=== PATIENT | male | born 1950 | race Caucasian/White ===

== ENCOUNTER 2020-08-17 12:13 | Inpatient (IN) | payer BC ==
[2020-08-17 16:24] LABS: BASO % 0.6 % (0-2.0); EOS % 0.7 % (0-4.5); HEMATOCRIT 31.1 % (35.4-49); HEMOGLOBIN 8.8 GM/dL (11.7-16.9); LYMPH % 13.6 % (8-40); MCHC 28.2 g/dl (32.0-35.9); MEAN CELL VOLUME 62.1 fl (80-96); MEAN PLT VOLUME 9.4 fl (7.5-11.1); MONO % 9.9 % (3.8-10.2); NEUT % 75.2 % (42.8-82.8); PLATELET COUNT 314 K/MM3 (134-434); RBC 5.01 M/mm3 (4.00-5.60); RDW 17.9 % (11.9-15.9); WHITE BLOOD COUNT 13.3 K/mm3 (4.0-10.0)
[2020-08-17 16:31] LABS: INR 1.45 (0.83-1.09); PROTHROMBIN TIME (PATIENT) 17.3 SEC (9.7-13.0)
[2020-08-17 16:34] LABS: ACTIVATED PTT 28.9 SECONDS (25.2-36.5)
[2020-08-17 16:48] LABS: MCH 17.5 pg (25.7-33.7)
[2020-08-17 16:52] LABS: CALCIUM 8.5 mg/dL (8.5-10.1)
[2020-08-17 16:53] LABS: ALBUMIN 3.6 g/dl (3.4-5.0)
[2020-08-17 16:56] LABS: CREATININE 1.1 mg/dL (0.55-1.3)
[2020-08-17 16:57] LABS: BILIRUBIN,TOTAL 1.1 mg/dL (0.2-1); TOT PROT 6.6 g/dl (6.4-8.2)
[2020-08-17 17:01] LABS: N-TERMINAL BNP 2191.1 pg/ml (5-125)
[2020-08-17] MEDS ORDERED: ALPRAZolam 1 MG TABLET PO PRN (18:04)
[2020-08-17] MEDS ORDERED: ALPRAZolam 0.25 MG TABLET ONE (18:05)
[2020-08-17 20:10] LABS: ANISOCYTOSIS 1+; MACROCYTOSIS 1+; OVALOCYTE 1+; PLATELET ESTIMATE NORMAL
[2020-08-17] MEDS ORDERED: ASPIRIN COATED 81 MG TABLET.EC ONE (20:37)
[2020-08-17] MEDS ORDERED: SPIRONOLACTONE 25 MG TABLET ONE (20:37)
[2020-08-17] MEDS: SPIRONOLACTONE 25 MG TABLET PO SCH (20:50)
[2020-08-17] MEDS: ASPIRIN COATED 81 MG TABLET.EC PO SCH (20:50)
[2020-08-17] MEDS ORDERED: FUROSEMIDE 40 MG/4 ML INJECTABLE VIAL ONE (22:37)
[2020-08-17] MEDS ORDERED: CARVEDILOL 3.125 MG TABLET (FP) ONE (22:37)
[2020-08-17] MEDS: FUROSEMIDE 40 MG/4 ML INJECTABLE VIAL IVPUSH SCH (22:52)
[2020-08-17] MEDS: CARVEDILOL 6.25 MG TABLET (FP) PO SCH (22:52)
[2020-08-17 22:56] LABS: EPI CELLS 7 /uL (0-25.1); HYALINE CASTS 3 /uL (0-3.1); URINE APPEARANCE CLOUDY; URINE BACTERIA 53 /uL (0-1359); URINE BILIRUBIN NEGATIVE (NEGATIVE); URINE COLOR YELLOW; URINE GLUCOSE (UA) NEGATIVE (NEGATIVE); URINE KETONE 1+ (NEGATIVE); URINE LEUK ESTERASE NEGATIVE (NEGATIVE); URINE NITRITE NEGATIVE (NEGATIVE); URINE PROTEIN 1+ (NEGATIVE); URINE RBC 10 /uL (0-23.9); URINE WBC 8 /uL (0-25.8)
[2020-08-18 08:18] LABS: PHOSPHOROUS 4.3 mg/dL (2.5-4.9)
[2020-08-18] MEDS ORDERED: ASPIRIN COATED 81 MG TABLET.EC ONE (09:24)
[2020-08-18] MEDS ORDERED: FUROSEMIDE 40 MG/4 ML INJECTABLE VIAL ONE (09:25)
[2020-08-18] MEDS ORDERED: DOCUSATE SODIUM 100 MG CAPSULE (FP) PO ONE (09:25)
[2020-08-18] MEDS ORDERED: SPIRONOLACTONE 25 MG TABLET ONE (09:25)
[2020-08-18] MEDS ORDERED: FERROUS SO4 325 MG TABLET (FP) ONE (09:25)
[2020-08-18] MEDS: FUROSEMIDE 40 MG/4 ML INJECTABLE VIAL IVPUSH SCH ×2 (09:32→22:37)
[2020-08-18] MEDS: CARVEDILOL 6.25 MG TABLET (FP) PO SCH ×2 (09:32→22:37)
[2020-08-18] MEDS: FERROUS SO4 325 MG TABLET (FP) PO SCH (09:32)
[2020-08-18] MEDS: DOCUSATE SODIUM 100 MG CAPSULE (FP) PO SCH (09:32)
[2020-08-18] MEDS: ASPIRIN COATED 81 MG TABLET.EC PO SCH (09:32)
[2020-08-18] MEDS: SPIRONOLACTONE 25 MG TABLET PO SCH (09:32)
[2020-08-18] MEDS: SACUBITRIL/VALSARTAN 49 MG-51 MG TABLET PO SCH ×2 (09:32→22:44)
[2020-08-18] MEDS ORDERED: ENOXAPARIN NA (PORCINE) 40 MG/0.4 ML DISP.SYRIN SQ SCH (10:00)
[2020-08-18 13:05] LABS: POTASSIUM 3.8 mmol/L (3.5-5.1)
[2020-08-18 13:08] LABS: ALBUMIN 3.2 g/dl (3.4-5.0); BLOOD UREA NITROGEN 33.4 mg/dL (7-18); CALCIUM 8.3 mg/dL (8.5-10.1)
[2020-08-18 13:10] LABS: CREATININE 1.2 mg/dL (0.55-1.3)
[2020-08-18 13:13] LABS: BASO % 0.9 % (0-2.0); BILIRUBIN,TOTAL 0.7 mg/dL (0.2-1); EOS % 1.3 % (0-4.5); HEMATOCRIT 27.1 % (35.4-49); HEMOGLOBIN 7.8 GM/dL (11.7-16.9); MEAN CELL VOLUME 61.9 fl (80-96); MEAN PLT VOLUME 9.5 fl (7.5-11.1); MONO % 11.8 % (3.8-10.2); PLATELET COUNT 228 K/MM3 (134-434); RBC 4.37 M/mm3 (4.00-5.60); RDW 18.3 % (11.9-15.9); TOT PROT 5.8 g/dl (6.4-8.2); WHITE BLOOD COUNT 7.2 K/mm3 (4.0-10.0)
[2020-08-18 13:14] LABS: MCH 17.9 pg (25.7-33.7)
[2020-08-18] MEDS: INSULIN SLIDING SCALE (NOVOLOG) 1 VIAL SQ SCH ×3 (13:25→21:10)
[2020-08-18 14:07] VITALS: BMI 38.7
[2020-08-18 15:42] LABS: BF WBC & OTHER NUCLEATED CELLS 251 /mm3
[2020-08-18] MEDS ORDERED: PNEUMOC 13-VAL CONJ-DIP CRM/PF 0.5 ML DISP.SYRIN IM ONE (17:00)
[2020-08-18] MEDS ORDERED: FLU VACCINE (FLULAVAL) PF 60 MCG/0.5 ML SYRINGE 2020-2021 IM ONE (17:00)
[2020-08-18 18:02] LABS: BODY FLUID MACROPHAGES 43 %
[2020-08-18] MEDS: BENZOCAINE/MENTH/CETYLPYRD CL 1 EACH LOZENGE MM PRN (22:37)
[2020-08-19] MEDS: INSULIN SLIDING SCALE (NOVOLOG) 1 VIAL SQ SCH ×4 (06:27→22:27)
[2020-08-19 07:57] LABS: BASO % 0.4 % (0-2.0); EOS % 0.8 % (0-4.5); HEMATOCRIT 27.5 % (35.4-49); MCHC 29.1 g/dl (32.0-35.9); MEAN CELL VOLUME 60.2 fl (80-96); MONO % 5.3 % (3.8-10.2); NEUT % 88.5 % (42.8-82.8); PLATELET COUNT 230 K/MM3 (134-434); RBC 4.57 M/mm3 (4.00-5.60); RDW 17.8 % (11.9-15.9); WHITE BLOOD COUNT 10.2 K/mm3 (4.0-10.0)
[2020-08-19 08:11] LABS: POTASSIUM 3.7 mmol/L (3.5-5.1)
[2020-08-19 08:12] LABS: ALBUMIN 2.5 g/dl (3.4-5.0)
[2020-08-19 08:14] LABS: CALCIUM 7.8 mg/dL (8.5-10.1)
[2020-08-19 08:15] LABS: BLOOD UREA NITROGEN 37.2 mg/dL (7-18); MAGNESIUM 1.9 mg/dL (1.8-2.4)
[2020-08-19 08:18] LABS: CREATININE 1.3 mg/dL (0.55-1.3)
[2020-08-19 08:19] LABS: BILIRUBIN,TOTAL 1.5 mg/dL (0.2-1)
[2020-08-19 08:20] LABS: TOT PROT 4.7 g/dl (6.4-8.2)
[2020-08-19 08:21] LABS: MCH 17.5 pg (25.7-33.7)
[2020-08-19] MEDS: SPIRONOLACTONE 25 MG TABLET PO SCH (09:29)
[2020-08-19] MEDS: SACUBITRIL/VALSARTAN 49 MG-51 MG TABLET PO SCH ×2 (09:29→22:05)
[2020-08-19] MEDS: DOCUSATE SODIUM 100 MG CAPSULE (FP) PO SCH (09:30)
[2020-08-19] MEDS: CARVEDILOL 6.25 MG TABLET (FP) PO SCH ×2 (09:30→22:05)
[2020-08-19] MEDS: FUROSEMIDE 40 MG/4 ML INJECTABLE VIAL IVPUSH SCH ×2 (09:31→22:30)
[2020-08-19] MEDS: BENZOCAINE/MENTH/CETYLPYRD CL 1 EACH LOZENGE MM PRN (09:31)
[2020-08-19] MEDS: FERROUS SO4 325 MG TABLET (FP) PO SCH (10:15)
[2020-08-19 11:58] LABS: HIV INTERPRETATION NEGATIVE (NEGATIVE)
[2020-08-19] MEDS ORDERED: INSULIN SLIDING SCALE (NOVOLOG) 1 VIAL SQ ONE (22:26)
[2020-08-20] MEDS: INSULIN SLIDING SCALE (NOVOLOG) 1 VIAL SQ SCH ×4 (07:19→21:31)
[2020-08-20 08:29] LABS: INR 1.38 (0.83-1.09); PROTHROMBIN TIME (PATIENT) 16.8 SEC (9.7-13.0)
[2020-08-20 08:35] LABS: POTASSIUM 3.8 mmol/L (3.5-5.1)
[2020-08-20 08:36] LABS: CALCIUM 7.8 mg/dL (8.5-10.1)
[2020-08-20 08:37] LABS: ALBUMIN 2.6 g/dl (3.4-5.0); BLOOD UREA NITROGEN 31.3 mg/dL (7-18)
[2020-08-20 08:40] LABS: CREATININE 1.2 mg/dL (0.55-1.3)
[2020-08-20 08:42] LABS: BILIRUBIN,TOTAL 0.5 mg/dL (0.2-1)
[2020-08-20 09:32] LABS: BASO % 0.5 % (0-2.0); EOS % 1.3 % (0-4.5); HEMATOCRIT 28.4 % (35.4-49); HEMOGLOBIN 8.2 GM/dL (11.7-16.9); LYMPH % 13.9 % (8-40); MCH 17.8 pg (25.7-33.7); MCHC 29.1 g/dl (32.0-35.9); MEAN CELL VOLUME 61.1 fl (80-96); MEAN PLT VOLUME 9.2 fl (7.5-11.1); MONO % 10.3 % (3.8-10.2); PLATELET COUNT 237 K/MM3 (134-434); RBC 4.64 M/mm3 (4.00-5.60); RDW 17.9 % (11.9-15.9); WHITE BLOOD COUNT 9.5 K/mm3 (4.0-10.0)
[2020-08-20] MEDS: FERROUS SO4 325 MG TABLET (FP) PO SCH (10:20)
[2020-08-20] MEDS: CARVEDILOL 6.25 MG TABLET (FP) PO SCH ×2 (10:20→21:30)
[2020-08-20] MEDS: SACUBITRIL/VALSARTAN 49 MG-51 MG TABLET PO SCH ×2 (10:20→21:31)
[2020-08-20] MEDS: FUROSEMIDE 40 MG/4 ML INJECTABLE VIAL IVPUSH SCH ×2 (10:20→21:31)
[2020-08-20] MEDS: DOCUSATE SODIUM 100 MG CAPSULE (FP) PO SCH (10:20)
[2020-08-20] MEDS: SPIRONOLACTONE 25 MG TABLET PO SCH (10:21)
[2020-08-20] MEDS: ASPIRIN COATED 81 MG TABLET.EC PO SCH (10:27)
[2020-08-20 13:07] LABS: BODY FLUID ALBUMIN 1.2 g/dL (Not Estab.)
[2020-08-21] MEDS: INSULIN SLIDING SCALE (NOVOLOG) 1 VIAL SQ SCH ×4 (06:16→21:38)
[2020-08-21 09:32] LABS: BASO % 0.6 % (0-2.0); EOS % 0.8 % (0-4.5); HEMATOCRIT 27.4 % (35.4-49); HEMOGLOBIN 8.1 GM/dL (11.7-16.9); LYMPH % 13.2 % (8-40); MCHC 29.7 g/dl (32.0-35.9); MEAN CELL VOLUME 60.1 fl (80-96); MEAN PLT VOLUME 9.7 fl (7.5-11.1); MONO % 11.8 % (3.8-10.2); NEUT % 73.6 % (42.8-82.8); PLATELET COUNT 222 K/MM3 (134-434); RBC 4.55 M/mm3 (4.00-5.60); RDW 18.4 % (11.9-15.9); WHITE BLOOD COUNT 9.4 K/mm3 (4.0-10.0)
[2020-08-21 09:38] LABS: MCH 17.8 pg (25.7-33.7)
[2020-08-21 09:48] LABS: POTASSIUM 3.7 mmol/L (3.5-5.1)
[2020-08-21 10:06] LABS: BLOOD UREA NITROGEN 23.3 mg/dL (7-18); CALCIUM 7.6 mg/dL (8.5-10.1)
[2020-08-21 10:07] LABS: ALBUMIN 2.6 g/dl (3.4-5.0)
[2020-08-21 10:11] LABS: TOT PROT 5.2 g/dl (6.4-8.2)
[2020-08-21 10:15] LABS: BILIRUBIN,TOTAL 0.7 mg/dL (0.2-1)
[2020-08-21] MEDS: SACUBITRIL/VALSARTAN 49 MG-51 MG TABLET PO SCH ×2 (10:49→21:38)
[2020-08-21] MEDS: FUROSEMIDE 40 MG/4 ML INJECTABLE VIAL IVPUSH SCH ×2 (10:49→21:38)
[2020-08-21] MEDS: FERROUS SO4 325 MG TABLET (FP) PO SCH (10:50)
[2020-08-21] MEDS: ASPIRIN COATED 81 MG TABLET.EC PO SCH (10:50)
[2020-08-21] MEDS: DOCUSATE SODIUM 100 MG CAPSULE (FP) PO SCH (10:50)
[2020-08-21] MEDS: CARVEDILOL 6.25 MG TABLET (FP) PO SCH ×2 (10:50→21:38)
[2020-08-21] MEDS: SPIRONOLACTONE 25 MG TABLET PO SCH (10:50)
[2020-08-21 11:15] LABS: ANISOCYTOSIS 2+; OVALOCYTE 2+
[2020-08-21] MEDS ORDERED: POTASSIUM CHLORIDE TABS 20 MEQ TABLET.ER (FP) PO ONE (13:59)
[2020-08-22] MEDS: INSULIN SLIDING SCALE (NOVOLOG) 1 VIAL SQ SCH ×2 (06:45→12:39)
[2020-08-22 08:33] LABS: BASO % 0.3 % (0-2.0); EOS % 0.2 % (0-4.5); HEMATOCRIT 26.6 % (35.4-49); HEMOGLOBIN 7.8 GM/dL (11.7-16.9); MCHC 29.3 g/dl (32.0-35.9); MEAN PLT VOLUME 9.4 fl (7.5-11.1); MONO % 10.6 % (3.8-10.2); NEUT % 80.9 % (42.8-82.8); PLATELET COUNT 190 K/MM3 (134-434); RBC 4.36 M/mm3 (4.00-5.60); RDW 18.6 % (11.9-15.9); WHITE BLOOD COUNT 9.4 K/mm3 (4.0-10.0)
[2020-08-22 08:34] LABS: MCH 17.9 pg (25.7-33.7)
[2020-08-22 08:53] LABS: POTASSIUM 4.1 mmol/L (3.5-5.1)
[2020-08-22 08:59] LABS: BLOOD UREA NITROGEN 25.7 mg/dL (7-18)
[2020-08-22 09:01] LABS: CALCIUM 7.8 mg/dL (8.5-10.1); MAGNESIUM 1.9 mg/dL (1.8-2.4)
[2020-08-22] MEDS ORDERED: MAGNESIUM HYDROX 2400MG/30ML ORAL SUSPENSION 30 ML CUP PO ONE (09:32)
[2020-08-22] MEDS: FUROSEMIDE 40 MG/4 ML INJECTABLE VIAL IVPUSH SCH (10:34)
[2020-08-22] MEDS: ASPIRIN COATED 81 MG TABLET.EC PO SCH (10:34)
[2020-08-22] MEDS: SACUBITRIL/VALSARTAN 49 MG-51 MG TABLET PO SCH (10:34)
[2020-08-22] MEDS: SPIRONOLACTONE 25 MG TABLET PO SCH (10:34)
[2020-08-22 11:44] VITALS: BP 93/52; PULSE 74; TEMP 98.6
[2020-08-22 17:07] LABS: HEP B CORE AB, TOT Negative (Negative)
[2020-08-22] MEDS ORDERED: DOCUSATE SODIUM 100 MG CAPSULE (FP) PO SCH (22:00)
== END 2020-08-22 13:29 | disposition short-term general hospital (02) | DRG 292 ==
LOC: JER 12:13 → JERBED 19:19 → J6WEST-2 08-18 11:12
PROVIDERS: ADMIT Hospitalist; ATTEND Family Medicine
PROC: 0W993ZX Drainage of Right Pleural Cavity, Percutaneous Approach, Diagnostic (ICD-10-PCS; principal; 2020-08-18)
DX: I11.0 Hypertensive heart disease with heart failure (principal); I24.8 Other forms of acute ischemic heart disease; I31.3 Pericardial effusion (noninflammatory); R18.8 Other ascites; I27.20 Pulmonary hypertension, unspecified; I50.23 Acute on chronic systolic (congestive) heart failure; R59.0 Localized enlarged lymph nodes; R60.0 Localized edema; I08.1 Rheumatic disorders of both mitral and tricuspid valves; E87.70 Fluid overload, unspecified; K63.9 Disease of intestine, unspecified; E11.9 Type 2 diabetes mellitus without complications; D50.0 Iron deficiency anemia secondary to blood loss (chronic); K76.9 Liver disease, unspecified; N50.89 Other specified disorders of the male genital organs; E66.9 Obesity, unspecified; Z68.37 Body mass index [BMI] 37.0-37.9, adult
CPT/HCPCS: 32555; 36415; 71045-TC-FY; 71046-TC-FY; 71260-TC; 74177-TC; 80048; 80053; 80061; 81003; 82042; 82105; 82150; 82248; 82378; 82465; 82550; 82728; 82945; 82962; 83036; 83540; 83550; 83615; 83721; 83735; 83880; 83986; 84100; 84157; 84443; 84478; 84484; 85025; 85045; 85610; 85730; 86301; 86304; 86704; 86706; 86707; 86708; 86709; 86803; 86850; 86900; 86901; 87070; 87075; 87102; 87116; 87205; 87206; 87210; 87340; 87389; 87522; 88108; 88305-TC; 90670; 93005; 93010; 93306-TC; 99285-25; C9803; G0008; G0009; Q2036; Q9967; U0003

== ENCOUNTER 2020-10-02 04:57 | Day surgery (SDC) | payer BC ==
[2020-10-01 17:32] VITALS: BMI 28.0
[2020-10-02 13:03] LABS: BF WBC & OTHER NUCLEATED CELLS 313148 /mm3
[2020-10-02 13:24] VITALS: BP 119/66; PULSE 104; TEMP 98.2
[2020-10-02 15:20] LABS: BODYL FLD EOSINOPHIL 15 %
[2020-10-02 15:21] LABS: BODY FLUID MACROPHAGES 10 %
[2020-10-03 14:14] LABS: BODY FLUID ALBUMIN 2.9 g/dL (Not Estab.)
== END 2020-10-02 13:00 | disposition home or self-care (01) ==
LOC: JRADIR 04:57
PROVIDERS: ATTEND Internal Medicine Hematology & Oncology
PROC: 0W993ZZ Drainage of Right Pleural Cavity, Percutaneous Approach (ICD-10-PCS; principal; 2020-10-02)
PROC: BB4BZZZ Ultrasonography of Pleura (ICD-10-PCS; 2020-10-02)
DX: J90 Pleural effusion, not elsewhere classified (principal)
CPT/HCPCS: 32555; 36415; 71046-TC-FY; 76700-TC; 76942; 82042; 82150; 82465; 82945; 82962; 83615; 83986; 84157; 84478; 87070; 87075; 87076; 87102; 87116; 87186; 87205; 87206; 87210; 88108; 88305-TC

== ENCOUNTER 2020-10-03 07:54 | Inpatient (IN) | payer BC ==
[2020-10-03 09:11] LABS: BASO % 0.6 % (0-2.0); EOS % 1.1 % (0-4.5); HEMATOCRIT 33.8 % (35.4-49); HEMOGLOBIN 10.5 GM/dL (11.7-16.9); LYMPH % 17.6 % (8-40); MCH 21.3 pg (25.7-33.7); MCHC 31.1 g/dl (32.0-35.9); MEAN CELL VOLUME 68.4 fl (80-96); MEAN PLT VOLUME 8.7 fl (7.5-11.1); MONO % 7.3 % (3.8-10.2); NEUT % 73.4 % (42.8-82.8); PLATELET COUNT 428 K/MM3 (134-434); RBC 4.94 M/mm3 (4.00-5.60); RDW 24.5 % (11.9-15.9); WHITE BLOOD COUNT 9.3 K/mm3 (4.0-10.0)
[2020-10-03 09:26] LABS: CHLORIDE 98 mmol/L (98-107); POTASSIUM 3.5 mmol/L (3.5-5.1); SODIUM 140 mmol/L (136-145)
[2020-10-03 09:28] LABS: ALBUMIN 2.7 g/dl (3.4-5.0); ANION GAP 11 MMOL/L (8-16); BLOOD UREA NITROGEN 30.2 mg/dL (7-18); CALCIUM 9.1 mg/dL (8.5-10.1); CO2 32 mmol/L (21-32); GLUCOSE,RANDOM 137 mg/dL (74-106)
[2020-10-03 09:29] LABS: LIPASE 274 U/L (73-393)
[2020-10-03 09:31] LABS: CREATININE 0.9 mg/dL (0.55-1.3); SGOT/AST 24 U/L (15-37); SGPT/ALT 40 U/L (13-61)
[2020-10-03 09:33] LABS: BILIRUBIN,TOTAL 0.5 mg/dL (0.2-1); TOT PROT 7.3 g/dl (6.4-8.2)
[2020-10-03 09:34] LABS: ALK PHOS 166 U/L (45-117); LDH 227 U/L (87-246)
[2020-10-03] MEDS ORDERED: CEFTRIAXONE 1,000 MG in DEXTROSE 5%-WATER - 50 ML IVPB ONE (10:00)
[2020-10-03] MEDS ORDERED: ACETAMINOPHEN 325 MG TABLET (FP) PO PRN (10:21)
[2020-10-03] MEDS ORDERED: CEFTRIAXONE 1 GM/50 ML BAG ONE (10:25)
[2020-10-03] MEDS ORDERED: PANTOPRAZOLE 40 MG TABLET ONE (11:22)
[2020-10-03] MEDS: PANTOPRAZOLE 20 MG TABLET PO SCH (11:31)
[2020-10-03 14:59] LABS: N-TERMINAL BNP 2537.1 pg/ml (5-125)
[2020-10-03] MEDS: HEPARIN NA (PORCINE) 5,000 UNITS/ML 1ML VIAL SQ SCH (22:10)
[2020-10-03] MEDS ORDERED: HEPARIN NA (PORCINE) 5,000 UNITS/ML 1ML VIAL ONE (22:32)
[2020-10-04 02:41] VITALS: BMI 29.1
[2020-10-04] MEDS: HEPARIN NA (PORCINE) 5,000 UNITS/ML 1ML VIAL SQ SCH ×2 (09:51→21:23)
[2020-10-04] MEDS: PANTOPRAZOLE 20 MG TABLET PO SCH (09:53)
[2020-10-04 10:07] LABS: BASO % 1.2 % (0-2.0); EOS % 1.8 % (0-4.5); HEMATOCRIT 29.5 % (35.4-49); HEMOGLOBIN 9.5 GM/dL (11.7-16.9); LYMPH % 17.9 % (8-40); MCH 21.7 pg (25.7-33.7); MCHC 32.1 g/dl (32.0-35.9); MEAN CELL VOLUME 67.4 fl (80-96); MEAN PLT VOLUME 8.4 fl (7.5-11.1); MONO % 6.5 % (3.8-10.2); NEUT % 72.6 % (42.8-82.8); PLATELET COUNT 377 K/MM3 (134-434); RBC 4.38 M/mm3 (4.00-5.60); RDW 24.6 % (11.9-15.9); WHITE BLOOD COUNT 7.7 K/mm3 (4.0-10.0)
[2020-10-04 10:16] LABS: INR 1.26 (0.83-1.09); PROTHROMBIN TIME (PATIENT) 15.4 SEC (9.7-13.0)
[2020-10-04 10:32] LABS: POTASSIUM 3.2 mmol/L (3.5-5.1)
[2020-10-04 10:34] LABS: ALBUMIN 2.5 g/dl (3.4-5.0); BLOOD UREA NITROGEN 23.4 mg/dL (7-18); CALCIUM 8.6 mg/dL (8.5-10.1)
[2020-10-04 10:37] LABS: CREATININE 0.8 mg/dL (0.55-1.3)
[2020-10-04 10:39] LABS: BILIRUBIN,TOTAL 0.5 mg/dL (0.2-1); TOT PROT 6.6 g/dl (6.4-8.2)
[2020-10-04 10:43] LABS: ANISOCYTOSIS 3+; MACROCYTOSIS 0; PLATELET ESTIMATE NORMAL
[2020-10-04] MEDS ORDERED: LORazepam 2 MG/ML SDV VIAL IVPB ONE (10:49)
[2020-10-04] MEDS: CEFTRIAXONE 1 GM in DEXTROSE 5%-WATER - 50 ML IVPB SCH (13:40)
[2020-10-05] MEDS: HEPARIN NA (PORCINE) 5,000 UNITS/ML 1ML VIAL SQ SCH ×2 (09:16→21:06)
[2020-10-05] MEDS: PANTOPRAZOLE 20 MG TABLET PO SCH (09:21)
[2020-10-05] MEDS: CEFTRIAXONE 1 GM in DEXTROSE 5%-WATER - 50 ML IVPB SCH (10:02)
[2020-10-05] MEDS: IRON POLYSACCHARIDES 150 MG CAPSULE PO SCH (14:25)
[2020-10-05] MEDS: GLIMEPIRIDE 1 MG TABLET PO SCH (14:25)
[2020-10-05 16:15] LABS: BASO % 0.8 % (0-2.0); EOS % 1.1 % (0-4.5); HEMATOCRIT 29.8 % (35.4-49); HEMOGLOBIN 9.4 GM/dL (11.7-16.9); LYMPH % 15.5 % (8-40); MCH 21.7 pg (25.7-33.7); MCHC 31.5 g/dl (32.0-35.9); MEAN CELL VOLUME 68.9 fl (80-96); MEAN PLT VOLUME 8.2 fl (7.5-11.1); MONO % 6.3 % (3.8-10.2); NEUT % 76.3 % (42.8-82.8); PLATELET COUNT 367 K/MM3 (134-434); RBC 4.33 M/mm3 (4.00-5.60); RDW 24.1 % (11.9-15.9); WHITE BLOOD COUNT 8.1 K/mm3 (4.0-10.0)
[2020-10-05] MEDS: INSULIN SLIDING SCALE (NOVOLOG) 1 VIAL SQ SCH ×2 (16:24→21:08)
[2020-10-05] MEDS: FUROSEMIDE 40 MG TABLET (FP) PO SCH (16:42)
[2020-10-05 17:00] LABS: ALBUMIN 2.5 g/dl (3.4-5.0); BLOOD UREA NITROGEN 18.8 mg/dL (7-18); CALCIUM 8.6 mg/dL (8.5-10.1)
[2020-10-05 17:04] LABS: CREATININE 0.7 mg/dL (0.55-1.3); IRON SERUM 34 ug/dL (50-175); TOTAL IRON BINDING CAPACITY 242 ug/dL (250-450)
[2020-10-05 17:05] LABS: BILIRUBIN,TOTAL 0.3 mg/dL (0.2-1); TOT PROT 6.5 g/dl (6.4-8.2)
[2020-10-05 18:00] LABS: POTASSIUM 3.8 mmol/L (3.5-5.1)
[2020-10-05] MEDS: ATORVASTATIN CA 10 MG TABLET (FP) PO SCH (21:06)
[2020-10-05] MEDS: LINEZOLID 600 MG PREMIX BAG 600 MG in PREMIX 300 IVPB SCH (22:30)
[2020-10-06] MEDS: INSULIN SLIDING SCALE (NOVOLOG) 1 VIAL SQ SCH ×4 (06:08→21:14)
[2020-10-06] MEDS: GLIMEPIRIDE 1 MG TABLET PO SCH (06:32)
[2020-10-06 09:07] LABS: BASO % 0.6 % (0-2.0); EOS % 1.1 % (0-4.5); HEMATOCRIT 31.4 % (35.4-49); LYMPH % 16.6 % (8-40); MCH 21.8 pg (25.7-33.7); MCHC 31.8 g/dl (32.0-35.9); MEAN CELL VOLUME 68.5 fl (80-96); MEAN PLT VOLUME 7.5 fl (7.5-11.1); NEUT % 74.7 % (42.8-82.8); PLATELET COUNT 342 K/MM3 (134-434); RBC 4.59 M/mm3 (4.00-5.60); RDW 23.9 % (11.9-15.9); WHITE BLOOD COUNT 8.2 K/mm3 (4.0-10.0)
[2020-10-06] MEDS: LINEZOLID 600 MG PREMIX BAG 600 MG in PREMIX 300 IVPB SCH ×2 (09:20→21:13)
[2020-10-06] MEDS: IRON POLYSACCHARIDES 150 MG CAPSULE PO SCH (09:33)
[2020-10-06] MEDS: PANTOPRAZOLE 20 MG TABLET PO SCH (09:33)
[2020-10-06] MEDS: FUROSEMIDE 40 MG TABLET (FP) PO SCH (09:33)
[2020-10-06 09:48] LABS: POTASSIUM 3.8 mmol/L (3.5-5.1)
[2020-10-06 10:14] LABS: ALBUMIN 2.5 g/dl (3.4-5.0); BLOOD UREA NITROGEN 14.2 mg/dL (7-18)
[2020-10-06 10:15] LABS: BILIRUBIN,TOTAL 0.4 mg/dL (0.2-1); CALCIUM 8.7 mg/dL (8.5-10.1); TOT PROT 6.3 g/dl (6.4-8.2)
[2020-10-06 10:17] LABS: CREATININE 0.7 mg/dL (0.55-1.3)
[2020-10-06] MEDS: CEFTRIAXONE 1 GM in DEXTROSE 5%-WATER - 50 ML IVPB SCH (10:26)
[2020-10-06] MEDS: HEPARIN NA (PORCINE) 5,000 UNITS/ML 1ML VIAL SQ SCH ×2 (10:29→21:12)
[2020-10-06] MEDS ORDERED: BENZOCAINE/MENTH/CETYLPYRD CL 1 EACH LOZENGE MM PRN (20:59)
[2020-10-06] MEDS: ATORVASTATIN CA 10 MG TABLET (FP) PO SCH (21:12)
[2020-10-07] MEDS: INSULIN SLIDING SCALE (NOVOLOG) 1 VIAL SQ SCH ×4 (06:20→21:00)
[2020-10-07] MEDS: GLIMEPIRIDE 1 MG TABLET PO SCH (06:20)
[2020-10-07] MEDS: LINEZOLID 600 MG PREMIX BAG 600 MG in PREMIX 300 IVPB SCH ×2 (09:11→20:59)
[2020-10-07] MEDS: TORSEMIDE 20 MG TABLET (FP) PO SCH (09:21)
[2020-10-07] MEDS: IRON POLYSACCHARIDES 150 MG CAPSULE PO SCH (09:21)
[2020-10-07] MEDS: PANTOPRAZOLE 20 MG TABLET PO SCH (09:21)
[2020-10-07] MEDS: HEPARIN NA (PORCINE) 5,000 UNITS/ML 1ML VIAL SQ SCH ×2 (09:22→20:59)
[2020-10-07] MEDS: metoPROLOL SUCCINATE 25 MG TAB.SR.24H (FP) PO SCH (09:22)
[2020-10-07] MEDS ORDERED: TORSEMIDE 20 MG TABLET (FP) PO SCH (10:00)
[2020-10-07] MEDS: CEFTRIAXONE 1 GM in DEXTROSE 5%-WATER - 50 ML IVPB SCH (10:35)
[2020-10-07] MEDS: ATORVASTATIN CA 10 MG TABLET (FP) PO SCH (20:59)
[2020-10-07] MEDS ORDERED: MAG HYDROX/AL HYDROX/SIMETH -MYLANTA- ORAL SUSPENSION PO ONE (21:27)
[2020-10-08] MEDS: INSULIN SLIDING SCALE (NOVOLOG) 1 VIAL SQ SCH ×2 (06:00→12:20)
[2020-10-08] MEDS: GLIMEPIRIDE 1 MG TABLET PO SCH (06:07)
[2020-10-08] MEDS: LINEZOLID 600 MG PREMIX BAG 600 MG in PREMIX 300 IVPB SCH (09:05)
[2020-10-08] MEDS: HEPARIN NA (PORCINE) 5,000 UNITS/ML 1ML VIAL SQ SCH (09:05)
[2020-10-08] MEDS: TORSEMIDE 20 MG TABLET (FP) PO SCH (09:07)
[2020-10-08] MEDS: IRON POLYSACCHARIDES 150 MG CAPSULE PO SCH (09:07)
[2020-10-08] MEDS: PANTOPRAZOLE 20 MG TABLET PO SCH (09:08)
[2020-10-08] MEDS: CEFTRIAXONE 1 GM in DEXTROSE 5%-WATER - 50 ML IVPB SCH (09:08)
[2020-10-08] MEDS: metoPROLOL SUCCINATE 25 MG TAB.SR.24H (FP) PO SCH (09:08)
[2020-10-08 12:23] VITALS: BP 107/58; PULSE 91; TEMP 97.9
== END 2020-10-08 14:53 | disposition home or self-care (01) | DRG 177 ==
LOC: JER 07:54 → JERBED 10:09 → J5WEST-2 10-04 02:06
PROVIDERS: ADMIT Family Medicine; ATTEND Family Medicine
DX: J86.9 Pyothorax without fistula (principal); I11.0 Hypertensive heart disease with heart failure; E11.9 Type 2 diabetes mellitus without complications; I50.23 Acute on chronic systolic (congestive) heart failure; J90 Pleural effusion, not elsewhere classified; C18.9 Malignant neoplasm of colon, unspecified; R89.9 Unspecified abnormal finding in specimens from other organs, systems and tissues; R48.9 Unspecified symbolic dysfunctions
CPT/HCPCS: 36415; 71045-TC-FY; 71250-TC; 80053; 82550; 82607; 82728; 82962; 83540; 83550; 83615; 83690; 83880; 84443; 84484; 85025; 85610; 85730; 87040; 93005; 93010; 93306-TC; 97116-GP; 97162-GP; 99285-25; C9803; J1644; U0003

== ENCOUNTER 2020-10-20 09:23 | Inpatient (IN) | payer BC ==
[2020-10-20 10:51] LABS: EOS % 1.1 % (0-4.5); HEMATOCRIT 33.1 % (35.4-49); HEMOGLOBIN 10.5 GM/dL (11.7-16.9); LYMPH % 18.1 % (8-40); MCH 22.8 pg (25.7-33.7); MCHC 31.8 g/dl (32.0-35.9); MEAN CELL VOLUME 71.8 fl (80-96); MEAN PLT VOLUME 8.6 fl (7.5-11.1); MONO % 8.9 % (3.8-10.2); NEUT % 70.9 % (42.8-82.8); PLATELET COUNT 192 K/MM3 (134-434); RBC 4.62 M/mm3 (4.00-5.60); RDW 24.4 % (11.9-15.9); WHITE BLOOD COUNT 5.5 K/mm3 (4.0-10.0)
[2020-10-20 11:04] LABS: POTASSIUM 3.1 mmol/L (3.5-5.1)
[2020-10-20 11:05] LABS: CALCIUM 8.3 mg/dL (8.5-10.1); INR 1.18 (0.83-1.09); PROTHROMBIN TIME (PATIENT) 14.4 SEC (9.7-13.0)
[2020-10-20 11:06] LABS: ALBUMIN 2.8 g/dl (3.4-5.0); BLOOD UREA NITROGEN 16.1 mg/dL (7-18)
[2020-10-20 11:08] LABS: ACTIVATED PTT 35.5 SECONDS (25.2-36.5)
[2020-10-20 11:09] LABS: CREATININE 0.8 mg/dL (0.55-1.3)
[2020-10-20 11:11] LABS: BILIRUBIN,TOTAL 0.4 mg/dL (0.2-1); TOT PROT 6.6 g/dl (6.4-8.2)
[2020-10-20] MEDS ORDERED: SODIUM CHLORIDE 0.9% 500 ML INFUS.BAG IV ONE (12:04)
[2020-10-20 12:13] LABS: ANISOCYTOSIS 2+; MACROCYTOSIS 0; PLATELET ESTIMATE NORMAL
[2020-10-20] MEDS ORDERED: POTASSIUM CHLORIDE ORAL LIQUID 20 MEQ/15 ML PO ONE (12:28)
[2020-10-20] MEDS ORDERED: POTASSIUM CHLORIDE ORAL LIQUID 20 MEQ/15 ML ONE (14:15)
[2020-10-20 17:26] LABS: BODY FLUID MONOCYTE 5 %
[2020-10-20] MEDS ORDERED: DEXTROSE 5%-WATER - 50 ML IVPB ONE (18:50)
[2020-10-20] MEDS ORDERED: PIPERACILLIN/TAZOBACTAM 3.375 GM VIAL IVPB ONE (18:50)
[2020-10-20] MEDS: PIPERACILLIN/TAZOB 3.375 GM 3.375 GM in DEXTROSE 5%-WATER - 50 ML IVPB SCH (19:00)
[2020-10-20] MEDS: LINEZOLID 600 MG PREMIX BAG 600 MG in PREMIX 300 IVPB SCH (20:18)
[2020-10-20] MEDS: ATORVASTATIN CA 10 MG TABLET (FP) PO SCH (21:15)
[2020-10-20] MEDS ORDERED: POTASSIUM CHLORIDE TABS 20 MEQ TABLET.ER (FP) PO ONE (22:00)
[2020-10-21] MEDS ORDERED: DEXTROSE 5%-WATER - 50 ML IVPB ONE ×3 (00:01→17:55)
[2020-10-21] MEDS: PIPERACILLIN/TAZOB 3.375 GM 3.375 GM in DEXTROSE 5%-WATER - 50 ML IVPB SCH ×3 (01:12→17:55)
[2020-10-21 03:42] LABS: PH,URINE 5.5 (5.0-8.0); URINE APPEARANCE CLEAR; URINE BILIRUBIN NEGATIVE (NEGATIVE); URINE COLOR YELLOW; URINE GLUCOSE (UA) NEGATIVE (NEGATIVE); URINE KETONE NEGATIVE (NEGATIVE); URINE LEUK ESTERASE NEGATIVE (NEGATIVE); URINE NITRITE NEGATIVE (NEGATIVE); URINE PROTEIN NEGATIVE (NEGATIVE); URINE UROBILINOGEN 0.2 mg/dL (0.2-1.0)
[2020-10-21] MEDS: LINEZOLID 600 MG PREMIX BAG 600 MG in PREMIX 300 IVPB SCH ×2 (05:54→17:56)
[2020-10-21] MEDS: GLIMEPIRIDE 1 MG TABLET PO SCH (06:03)
[2020-10-21 07:08] LABS: HEMATOCRIT 31.4 % (35.4-49); HEMOGLOBIN 10.2 GM/dL (11.7-16.9); MCH 23.1 pg (25.7-33.7); MCHC 32.4 g/dl (32.0-35.9); MEAN CELL VOLUME 71.3 fl (80-96); MEAN PLT VOLUME 8.7 fl (7.5-11.1); PLATELET COUNT 165 K/MM3 (134-434); RDW 23.7 % (11.9-15.9); WHITE BLOOD COUNT 5.4 K/mm3 (4.0-10.0)
[2020-10-21 07:39] LABS: POTASSIUM 3.3 mmol/L (3.5-5.1)
[2020-10-21 07:42] LABS: CALCIUM 8.2 mg/dL (8.5-10.1)
[2020-10-21 07:43] LABS: ALBUMIN 2.8 g/dl (3.4-5.0); BLOOD UREA NITROGEN 11.2 mg/dL (7-18); MAGNESIUM 1.9 mg/dL (1.8-2.4)
[2020-10-21 07:46] LABS: CREATININE 0.7 mg/dL (0.55-1.3)
[2020-10-21 07:47] LABS: BILIRUBIN,TOTAL 0.7 mg/dL (0.2-1); TOT PROT 6.1 g/dl (6.4-8.2)
[2020-10-21] MEDS ORDERED: PIPERACILLIN/TAZOBACTAM 3.375 GM VIAL IVPB ONE ×3 (10:51→17:55)
[2020-10-21] MEDS: PANTOPRAZOLE 40 MG TABLET PO SCH (10:58)
[2020-10-21] MEDS: metoPROLOL SUCCINATE 25 MG TAB.SR.24H (FP) PO SCH (10:58)
[2020-10-21] MEDS: TORSEMIDE 20 MG TABLET (FP) PO SCH (10:58)
[2020-10-21] MEDS ORDERED: POTASSIUM CHLORIDE TABS 20 MEQ TABLET.ER (FP) PO ONE (13:16)
[2020-10-21] MEDS: POTASSIUM CHLORIDE TABS 10 MEQ TABLET.ER (FP) PO SCH (15:11)
[2020-10-21] MEDS ORDERED: PT OWN MED DRAWER 7, Y5N ONE (17:54)
[2020-10-21] MEDS: ATORVASTATIN CA 10 MG TABLET (FP) PO SCH (22:04)
[2020-10-22] MEDS ORDERED: PIPERACILLIN/TAZOBACTAM 3.375 GM VIAL IVPB ONE ×3 (02:12→18:25)
[2020-10-22] MEDS ORDERED: DEXTROSE 5%-WATER - 50 ML IVPB ONE ×3 (02:12→18:26)
[2020-10-22] MEDS: PIPERACILLIN/TAZOB 3.375 GM 3.375 GM in DEXTROSE 5%-WATER - 50 ML IVPB SCH ×3 (02:39→18:29)
[2020-10-22] MEDS ORDERED: PT OWN MED DRAWER 7, Y5N ONE ×2 (06:06→18:28)
[2020-10-22] MEDS: LINEZOLID 600 MG PREMIX BAG 600 MG in PREMIX 300 IVPB SCH ×2 (06:10→18:29)
[2020-10-22] MEDS: GLIMEPIRIDE 1 MG TABLET PO SCH (06:10)
[2020-10-22] MEDS: TORSEMIDE 20 MG TABLET (FP) PO SCH (09:31)
[2020-10-22] MEDS: metoPROLOL SUCCINATE 25 MG TAB.SR.24H (FP) PO SCH (09:31)
[2020-10-22] MEDS: POTASSIUM CHLORIDE TABS 10 MEQ TABLET.ER (FP) PO SCH (09:32)
[2020-10-22] MEDS: PANTOPRAZOLE 40 MG TABLET PO SCH (09:32)
[2020-10-22] MEDS ORDERED: MAG HYDROX/AL HYDROX/SIMETH 30 ML UNIT-DOSE CUP PO ONE (11:15)
[2020-10-22 15:11] LABS: BODY FLUID ALBUMIN 2.6 g/dL (Not Estab.)
[2020-10-22] MEDS: ATORVASTATIN CA 10 MG TABLET (FP) PO SCH (21:33)
[2020-10-22] MEDS: SIMETHICONE 80 MG TAB.CHEW (FP) PO PRN (21:33)
[2020-10-23] MEDS ORDERED: PIPERACILLIN/TAZOBACTAM 3.375 GM VIAL IVPB ONE ×4 (01:44→23:53)
[2020-10-23] MEDS ORDERED: DEXTROSE 5%-WATER - 50 ML IVPB ONE ×4 (01:44→23:53)
[2020-10-23] MEDS: PIPERACILLIN/TAZOB 3.375 GM 3.375 GM in DEXTROSE 5%-WATER - 50 ML IVPB SCH ×3 (03:00→17:03)
[2020-10-23] MEDS ORDERED: PT OWN MED DRAWER 7, Y5N ONE (06:25)
[2020-10-23] MEDS: LINEZOLID 600 MG PREMIX BAG 600 MG in PREMIX 300 IVPB SCH (06:30)
[2020-10-23] MEDS: GLIMEPIRIDE 1 MG TABLET PO SCH (06:30)
[2020-10-23 07:58] LABS: POTASSIUM 3.9 mmol/L (3.5-5.1)
[2020-10-23 08:05] LABS: BLOOD UREA NITROGEN 9.4 mg/dL (7-18); CALCIUM 8.5 mg/dL (8.5-10.1); MAGNESIUM 2.2 mg/dL (1.8-2.4)
[2020-10-23 08:08] LABS: CREATININE 0.8 mg/dL (0.55-1.3)
[2020-10-23 08:10] LABS: BILIRUBIN,TOTAL 0.7 mg/dL (0.2-1); TOT PROT 6.5 g/dl (6.4-8.2)
[2020-10-23] MEDS: POTASSIUM CHLORIDE TABS 10 MEQ TABLET.ER (FP) PO SCH (09:10)
[2020-10-23] MEDS: TORSEMIDE 20 MG TABLET (FP) PO SCH (09:10)
[2020-10-23] MEDS: PANTOPRAZOLE 40 MG TABLET PO SCH (09:10)
[2020-10-23] MEDS: metoPROLOL SUCCINATE 25 MG TAB.SR.24H (FP) PO SCH (09:10)
[2020-10-23 12:05] VITALS: BMI 28.8
[2020-10-23] MEDS ORDERED: LORazepam 2 MG/ML SDV VIAL IVPB ONE ×2 (17:18→22:30)
[2020-10-23] MEDS: ATORVASTATIN CA 10 MG TABLET (FP) PO SCH (22:24)
[2020-10-23] MEDS: SIMETHICONE 80 MG TAB.CHEW (FP) PO PRN (22:25)
[2020-10-23] MEDS: DOCUSATE SODIUM 100 MG CAPSULE (FP) PO PRN (22:25)
[2020-10-24] MEDS: PIPERACILLIN/TAZOB 3.375 GM 3.375 GM in DEXTROSE 5%-WATER - 50 ML IVPB SCH ×3 (02:42→17:04)
[2020-10-24] MEDS: DOCUSATE SODIUM 100 MG CAPSULE (FP) PO PRN ×2 (06:30→21:33)
[2020-10-24] MEDS: SIMETHICONE 80 MG TAB.CHEW (FP) PO PRN ×3 (06:30→21:33)
[2020-10-24] MEDS: GLIMEPIRIDE 1 MG TABLET PO SCH (06:30)
[2020-10-24] MEDS ORDERED: PIPERACILLIN/TAZOBACTAM 3.375 GM VIAL IVPB ONE ×3 (09:14→22:47)
[2020-10-24] MEDS ORDERED: DEXTROSE 5%-WATER - 50 ML IVPB ONE ×3 (09:14→22:48)
[2020-10-24] MEDS: metoPROLOL SUCCINATE 25 MG TAB.SR.24H (FP) PO SCH (10:25)
[2020-10-24] MEDS: PANTOPRAZOLE 40 MG TABLET PO SCH (10:25)
[2020-10-24] MEDS: POTASSIUM CHLORIDE TABS 10 MEQ TABLET.ER (FP) PO SCH (10:25)
[2020-10-24] MEDS: TORSEMIDE 20 MG TABLET (FP) PO SCH (10:25)
[2020-10-24] MEDS: ATORVASTATIN CA 10 MG TABLET (FP) PO SCH (21:33)
[2020-10-25] MEDS: PIPERACILLIN/TAZOB 3.375 GM 3.375 GM in DEXTROSE 5%-WATER - 50 ML IVPB SCH ×4 (01:05→17:29)
[2020-10-25] MEDS: DOCUSATE SODIUM 100 MG CAPSULE (FP) PO PRN ×3 (05:29→21:28)
[2020-10-25] MEDS: SIMETHICONE 80 MG TAB.CHEW (FP) PO PRN ×3 (05:30→21:29)
[2020-10-25] MEDS: GLIMEPIRIDE 1 MG TABLET PO SCH (06:04)
[2020-10-25 08:18] LABS: HEMOGLOBIN 10.5 GM/dL (11.7-16.9); MCH 23.3 pg (25.7-33.7); MCHC 31.9 g/dl (32.0-35.9); MEAN CELL VOLUME 73.1 fl (80-96); MEAN PLT VOLUME 8.8 fl (7.5-11.1); PLATELET COUNT 162 K/MM3 (134-434); RBC 4.52 M/mm3 (4.00-5.60); RDW 24.8 % (11.9-15.9); WHITE BLOOD COUNT 5.9 K/mm3 (4.0-10.0)
[2020-10-25 08:29] LABS: POTASSIUM 3.9 mmol/L (3.5-5.1)
[2020-10-25 08:44] LABS: CALCIUM 9.1 mg/dL (8.5-10.1)
[2020-10-25 08:45] LABS: BLOOD UREA NITROGEN 9.6 mg/dL (7-18)
[2020-10-25 08:47] LABS: CREATININE 0.9 mg/dL (0.55-1.3)
[2020-10-25 08:49] LABS: BILIRUBIN,TOTAL 0.7 mg/dL (0.2-1); TOT PROT 6.6 g/dl (6.4-8.2)
[2020-10-25] MEDS ORDERED: PIPERACILLIN/TAZOBACTAM 3.375 GM VIAL IVPB ONE ×3 (10:21→23:26)
[2020-10-25] MEDS ORDERED: DEXTROSE 5%-WATER - 50 ML IVPB ONE ×3 (10:21→23:26)
[2020-10-25] MEDS: POTASSIUM CHLORIDE TABS 10 MEQ TABLET.ER (FP) PO SCH (10:29)
[2020-10-25] MEDS: metoPROLOL SUCCINATE 25 MG TAB.SR.24H (FP) PO SCH (10:29)
[2020-10-25] MEDS: TORSEMIDE 20 MG TABLET (FP) PO SCH (10:29)
[2020-10-25] MEDS: PANTOPRAZOLE 40 MG TABLET PO SCH (10:29)
[2020-10-25] MEDS: POLYETHYLENE GLYCOL 3350 119 GM BTL PO SCH (17:29)
[2020-10-25] MEDS: ATORVASTATIN CA 10 MG TABLET (FP) PO SCH (21:29)
[2020-10-26] MEDS: PIPERACILLIN/TAZOB 3.375 GM 3.375 GM in DEXTROSE 5%-WATER - 50 ML IVPB SCH ×3 (01:57→17:16)
[2020-10-26] MEDS: DOCUSATE SODIUM 100 MG CAPSULE (FP) PO PRN (05:50)
[2020-10-26] MEDS: SIMETHICONE 80 MG TAB.CHEW (FP) PO PRN ×2 (05:50→18:17)
[2020-10-26] MEDS: GLIMEPIRIDE 1 MG TABLET PO SCH (05:59)
[2020-10-26 08:27] LABS: HEMOGLOBIN 11.7 GM/dL (11.7-16.9); MCH 23.5 pg (25.7-33.7); MCHC 32.6 g/dl (32.0-35.9); MEAN CELL VOLUME 72.2 fl (80-96); MEAN PLT VOLUME 8.5 fl (7.5-11.1); PLATELET COUNT 239 K/MM3 (134-434); RBC 4.99 M/mm3 (4.00-5.60); RDW 24.4 % (11.9-15.9); WHITE BLOOD COUNT 8.8 K/mm3 (4.0-10.0)
[2020-10-26 08:40] LABS: CALCIUM 9.7 mg/dL (8.5-10.1); POTASSIUM 4.7 mmol/L (3.5-5.1)
[2020-10-26 08:41] LABS: ALBUMIN 3.4 g/dl (3.4-5.0); BLOOD UREA NITROGEN 10.7 mg/dL (7-18)
[2020-10-26 08:43] LABS: CREATININE 0.9 mg/dL (0.55-1.3)
[2020-10-26 08:45] LABS: BILIRUBIN,TOTAL 0.7 mg/dL (0.2-1); TOT PROT 7.3 g/dl (6.4-8.2)
[2020-10-26] MEDS ORDERED: PT OWN MED DRAWER 7, Y5N ONE ×2 (09:53→15:35)
[2020-10-26] MEDS ORDERED: PIPERACILLIN/TAZOBACTAM 3.375 GM VIAL IVPB ONE ×2 (09:53→16:57)
[2020-10-26] MEDS ORDERED: DEXTROSE 5%-WATER - 50 ML IVPB ONE ×2 (09:54→16:57)
[2020-10-26] MEDS: POTASSIUM CHLORIDE TABS 10 MEQ TABLET.ER (FP) PO SCH (09:57)
[2020-10-26] MEDS: TORSEMIDE 20 MG TABLET (FP) PO SCH (09:57)
[2020-10-26] MEDS: PANTOPRAZOLE 40 MG TABLET PO SCH (09:58)
[2020-10-26] MEDS: metoPROLOL SUCCINATE 25 MG TAB.SR.24H (FP) PO SCH (09:59)
[2020-10-26] MEDS: POLYETHYLENE GLYCOL 3350 119 GM BTL PO SCH (10:00)
[2020-10-26] MEDS ORDERED: ALTEPLASE 2 MG VIAL IX ONE (13:00)
[2020-10-26] MEDS: ACETAMINOPHEN 325 MG TABLET (FP) PO PRN (18:17)
[2020-10-26] MEDS: ATORVASTATIN CA 10 MG TABLET (FP) PO SCH (22:01)
[2020-10-27] MEDS: ACETAMINOPHEN 325 MG TABLET (FP) PO PRN ×4 (01:18→23:31)
[2020-10-27] MEDS ORDERED: PIPERACILLIN/TAZOBACTAM 3.375 GM VIAL IVPB ONE ×3 (02:10→17:22)
[2020-10-27] MEDS ORDERED: DEXTROSE 5%-WATER - 50 ML IVPB ONE ×3 (02:10→17:22)
[2020-10-27] MEDS: PIPERACILLIN/TAZOB 3.375 GM 3.375 GM in DEXTROSE 5%-WATER - 50 ML IVPB SCH ×4 (02:43→17:23)
[2020-10-27] MEDS ORDERED: PT OWN MED DRAWER 7, Y5N ONE (06:05)
[2020-10-27] MEDS: GLIMEPIRIDE 1 MG TABLET PO SCH (06:14)
[2020-10-27] MEDS ORDERED: VANCOMYCIN 1 GM in D5W (PRE-DOCKED) 1,000 MG/250 ML IVPB ONE (08:45)
[2020-10-27 09:11] LABS: HEMATOCRIT 37.1 % (35.4-49); HEMOGLOBIN 11.9 GM/dL (11.7-16.9); MCH 23.5 pg (25.7-33.7); MEAN CELL VOLUME 73.3 fl (80-96); MEAN PLT VOLUME 8.6 fl (7.5-11.1); PLATELET COUNT 267 K/MM3 (134-434); RBC 5.06 M/mm3 (4.00-5.60); RDW 24.2 % (11.9-15.9); WHITE BLOOD COUNT 9.9 K/mm3 (4.0-10.0)
[2020-10-27 09:26] LABS: CHLORIDE 96 mmol/L (98-107); POTASSIUM 4.4 mmol/L (3.5-5.1); SODIUM 136 mmol/L (136-145)
[2020-10-27] MEDS: TORSEMIDE 20 MG TABLET (FP) PO SCH (09:32)
[2020-10-27] MEDS: PANTOPRAZOLE 40 MG TABLET PO SCH (09:32)
[2020-10-27] MEDS: metoPROLOL SUCCINATE 25 MG TAB.SR.24H (FP) PO SCH (09:32)
[2020-10-27 09:34] LABS: CALCIUM 9.8 mg/dL (8.5-10.1); GLUCOSE,RANDOM 78 mg/dL (74-106)
[2020-10-27 09:35] LABS: ALBUMIN 3.5 g/dl (3.4-5.0); ANION GAP 10 MMOL/L (8-16); CO2 30 mmol/L (21-32); CREATININE 1.2 mg/dL (0.55-1.3)
[2020-10-27] MEDS: POLYETHYLENE GLYCOL 3350 119 GM BTL PO SCH ×2 (09:35→09:37)
[2020-10-27 09:36] LABS: BILIRUBIN,TOTAL 0.9 mg/dL (0.2-1); TOT PROT 7.5 g/dl (6.4-8.2)
[2020-10-27 09:37] LABS: ALK PHOS 90 U/L (45-117); SGPT/ALT 24 U/L (13-61)
[2020-10-27 09:38] LABS: SGOT/AST 31 U/L (15-37)
[2020-10-27] MEDS: traMADol HCL 50 MG TABLET PO PRN ×2 (09:43→19:55)
[2020-10-27] MEDS: SIMETHICONE 80 MG TAB.CHEW (FP) PO PRN (09:43)
[2020-10-27] MEDS ORDERED: ALTEPLASE 2 MG VIAL IX ONE (10:00)
[2020-10-27] MEDS ORDERED: MORPHINE SULFATE 2 MG/ML VIAL IVPUSH ONE (11:11)
[2020-10-27] MEDS ORDERED: SODIUM CHLORIDE 250 ML IV ONE (12:00)
[2020-10-27] MEDS ORDERED: SODIUM CHLORIDE 1,000 ML IV SCH (13:00)
[2020-10-27] MEDS ORDERED: SODIUM CHLORIDE 0.9% 500 ML INFUS.BAG IV ONE (13:46)
[2020-10-27 13:58] LABS: URINE APPEARANCE CLEAR; URINE BILIRUBIN NEGATIVE (NEGATIVE); URINE COLOR YELLOW; URINE GLUCOSE (UA) NEGATIVE (NEGATIVE); URINE KETONE NEGATIVE (NEGATIVE); URINE LEUK ESTERASE NEGATIVE (NEGATIVE); URINE NITRITE NEGATIVE (NEGATIVE); URINE PROTEIN NEGATIVE (NEGATIVE); URINE UROBILINOGEN 0.2 mg/dL (0.2-1.0)
[2020-10-27] MEDS: INSULIN SLIDING SCALE (NOVOLOG) 1 VIAL SQ SCH ×2 (16:54→21:23)
[2020-10-27] MEDS: ATORVASTATIN CA 10 MG TABLET (FP) PO SCH (21:17)
[2020-10-28] MEDS ORDERED: PIPERACILLIN/TAZOBACTAM 3.375 GM VIAL IVPB ONE ×3 (01:21→17:45)
[2020-10-28] MEDS ORDERED: DEXTROSE 5%-WATER - 50 ML IVPB ONE ×3 (01:21→17:45)
[2020-10-28] MEDS: PIPERACILLIN/TAZOB 3.375 GM 3.375 GM in DEXTROSE 5%-WATER - 50 ML IVPB SCH ×3 (01:23→17:50)
[2020-10-28] MEDS: traMADol HCL 50 MG TABLET PO PRN ×2 (04:36→11:33)
[2020-10-28] MEDS: INSULIN SLIDING SCALE (NOVOLOG) 1 VIAL SQ SCH ×4 (06:01→22:25)
[2020-10-28 07:00] LABS: HEMATOCRIT 28.4 % (35.4-49); HEMOGLOBIN 9.4 GM/dL (11.7-16.9); MCH 23.9 pg (25.7-33.7); MEAN CELL VOLUME 72.4 fl (80-96); MEAN PLT VOLUME 8.8 fl (7.5-11.1); PLATELET COUNT 165 K/MM3 (134-434); RBC 3.92 M/mm3 (4.00-5.60); RDW 23.9 % (11.9-15.9); WHITE BLOOD COUNT 8.2 K/mm3 (4.0-10.0)
[2020-10-28 07:21] LABS: POTASSIUM 3.8 mmol/L (3.5-5.1)
[2020-10-28 07:24] LABS: CALCIUM 8.5 mg/dL (8.5-10.1)
[2020-10-28 07:25] LABS: BLOOD UREA NITROGEN 16.4 mg/dL (7-18)
[2020-10-28 07:29] LABS: BILIRUBIN,TOTAL 0.6 mg/dL (0.2-1); TOT PROT 5.7 g/dl (6.4-8.2)
[2020-10-28 07:38] LABS: ALBUMIN 2.6 g/dl (3.4-5.0)
[2020-10-28] MEDS: ACETAMINOPHEN 325 MG TABLET (FP) PO PRN (08:16)
[2020-10-28] MEDS ORDERED: PT OWN MED DRAWER 7, Y5N ONE (09:33)
[2020-10-28] MEDS: metoPROLOL SUCCINATE 25 MG TAB.SR.24H (FP) PO SCH (09:58)
[2020-10-28] MEDS ORDERED: ALTEPLASE 2 MG VIAL IVPUSH ONE (10:00)
[2020-10-28] MEDS ORDERED: ALTEPLASE 2 MG VIAL IX ONE (10:00)
[2020-10-28] MEDS: POLYETHYLENE GLYCOL 3350 119 GM BTL PO SCH (10:04)
[2020-10-28] MEDS: PANTOPRAZOLE 40 MG TABLET PO SCH (10:04)
[2020-10-28 11:51] LABS: BASO % 0.5 % (0-2.0); EOS % 1.1 % (0-4.5); HEMATOCRIT 31.9 % (35.4-49); HEMOGLOBIN 10.3 GM/dL (11.7-16.9); LYMPH % 11.7 % (8-40); MCH 23.5 pg (25.7-33.7); MCHC 32.3 g/dl (32.0-35.9); MEAN CELL VOLUME 72.8 fl (80-96); MEAN PLT VOLUME 8.8 fl (7.5-11.1); MONO % 11.8 % (3.8-10.2); NEUT % 74.9 % (42.8-82.8); PLATELET COUNT 195 K/MM3 (134-434); RBC 4.38 M/mm3 (4.00-5.60); RDW 24.6 % (11.9-15.9); WHITE BLOOD COUNT 9.4 K/mm3 (4.0-10.0)
[2020-10-28] MEDS: ATORVASTATIN CA 10 MG TABLET (FP) PO SCH (21:26)
[2020-10-28] MEDS ORDERED: traMADol HCL 50 MG TABLET PO PRN (23:14)
[2020-10-28] MEDS ORDERED: ACETAMINOPHEN 325 MG TABLET (FP) PO PRN (23:14)
[2020-10-28] MEDS: DOCUSATE SODIUM 100 MG CAPSULE (FP) PO PRN (23:42)
[2020-10-28] MEDS: SIMETHICONE 80 MG TAB.CHEW (FP) PO PRN (23:44)
[2020-10-29] MEDS ORDERED: PIPERACILLIN/TAZOBACTAM 3.375 GM VIAL IVPB ONE ×3 (01:00→16:00)
[2020-10-29] MEDS ORDERED: DEXTROSE 5%-WATER - 50 ML IVPB ONE ×3 (01:00→16:00)
[2020-10-29] MEDS: PIPERACILLIN/TAZOB 3.375 GM 3.375 GM in DEXTROSE 5%-WATER - 50 ML IVPB SCH ×3 (01:32→16:59)
[2020-10-29] MEDS: INSULIN SLIDING SCALE (NOVOLOG) 1 VIAL SQ SCH ×4 (06:06→21:46)
[2020-10-29 07:09] LABS: HEMATOCRIT 32.1 % (35.4-49); HEMOGLOBIN 10.4 GM/dL (11.7-16.9); MCH 23.6 pg (25.7-33.7); MCHC 32.4 g/dl (32.0-35.9); MEAN CELL VOLUME 72.7 fl (80-96); MEAN PLT VOLUME 8.7 fl (7.5-11.1); PLATELET COUNT 216 K/MM3 (134-434); RBC 4.42 M/mm3 (4.00-5.60); RDW 24.1 % (11.9-15.9); WHITE BLOOD COUNT 7.5 K/mm3 (4.0-10.0)
[2020-10-29 07:32] LABS: POTASSIUM 3.6 mmol/L (3.5-5.1)
[2020-10-29 07:43] LABS: CALCIUM 9.1 mg/dL (8.5-10.1)
[2020-10-29 07:44] LABS: BLOOD UREA NITROGEN 13.8 mg/dL (7-18)
[2020-10-29 07:47] LABS: CREATININE 0.8 mg/dL (0.55-1.3)
[2020-10-29 07:48] LABS: BILIRUBIN,TOTAL 0.7 mg/dL (0.2-1)
[2020-10-29 07:49] LABS: TOT PROT 6.4 g/dl (6.4-8.2)
[2020-10-29] MEDS ORDERED: INSULIN (NOVOLOG) ASPART 100 UNITS/ML 10ML VIAL ONE (08:41)
[2020-10-29] MEDS: metoPROLOL SUCCINATE 25 MG TAB.SR.24H (FP) PO SCH (09:21)
[2020-10-29] MEDS: PANTOPRAZOLE 40 MG TABLET PO SCH (09:22)
[2020-10-29] MEDS: POLYETHYLENE GLYCOL 3350 119 GM BTL PO SCH (09:24)
[2020-10-29] MEDS: SIMETHICONE 80 MG TAB.CHEW (FP) PO PRN (21:46)
[2020-10-29] MEDS ORDERED: ATORVASTATIN CA 10 MG TABLET (FP) PO SCH (22:00)
[2020-10-30] MEDS ORDERED: DEXTROSE 5%-WATER - 50 ML IVPB ONE ×2 (00:45→09:08)
[2020-10-30] MEDS ORDERED: PIPERACILLIN/TAZOBACTAM 3.375 GM VIAL IVPB ONE ×2 (00:45→09:07)
[2020-10-30] MEDS: PIPERACILLIN/TAZOB 3.375 GM 3.375 GM in DEXTROSE 5%-WATER - 50 ML IVPB SCH ×2 (01:02→09:42)
[2020-10-30] MEDS: SIMETHICONE 80 MG TAB.CHEW (FP) PO PRN (05:22)
[2020-10-30] MEDS: DOCUSATE SODIUM 100 MG CAPSULE (FP) PO PRN (05:23)
[2020-10-30] MEDS: INSULIN SLIDING SCALE (NOVOLOG) 1 VIAL SQ SCH ×2 (06:01→12:33)
[2020-10-30] MEDS: metoPROLOL SUCCINATE 25 MG TAB.SR.24H (FP) PO SCH (09:42)
[2020-10-30] MEDS: PANTOPRAZOLE 40 MG TABLET PO SCH (09:42)
[2020-10-30] MEDS: POLYETHYLENE GLYCOL 3350 119 GM BTL PO SCH (09:43)
[2020-10-30] MEDS ORDERED: TORSEMIDE 10 MG TABLET PO SCH (10:00)
[2020-10-30 15:07] VITALS: BP 110/61; PULSE 89; TEMP 97.9
== END 2020-10-30 16:45 | disposition home health service (06) | DRG 178 ==
LOC: JER 09:23 → JERBED 10:18 → J7W 16:46 → JICU 10-27 12:04 → J7W 10-28 23:12
PROVIDERS: ADMIT Family Medicine; ATTEND Family Medicine
PROC: 0W9930Z Drainage of Right Pleural Cavity with Drainage Device, Percutaneous Approach (ICD-10-PCS; principal; 2020-10-20)
PROC: 0FB13ZX Excision of Right Lobe Liver, Percutaneous Approach, Diagnostic (ICD-10-PCS; 2020-10-26)
PROC: 3E0L3GC Introduction of Other Therapeutic Substance into Pleural Cavity, Percutaneous Approach (ICD-10-PCS; 2020-10-26)
DX: J86.9 Pyothorax without fistula (principal); C18.9 Malignant neoplasm of colon, unspecified; C78.7 Secondary malignant neoplasm of liver and intrahepatic bile duct; R18.8 Other ascites; N17.9 Acute kidney failure, unspecified; E87.2 Acidosis; I50.22 Chronic systolic (congestive) heart failure; D50.0 Iron deficiency anemia secondary to blood loss (chronic); K21.9 Gastro-esophageal reflux disease without esophagitis; E11.9 Type 2 diabetes mellitus without complications; I11.0 Hypertensive heart disease with heart failure; E87.6 Hypokalemia; D63.8 Anemia in other chronic diseases classified elsewhere; R80.9 Proteinuria, unspecified; I27.20 Pulmonary hypertension, unspecified; I95.9 Hypotension, unspecified
CPT/HCPCS: 32557; 36415; 71045-TC-FY; 71046-TC-FY; 71250-TC; 76942-TC; 80053; 81003; 82042; 82150; 82378; 82550; 82565; 82728; 82945; 82962; 83605; 83615; 83735; 83986; 84156; 84157; 84478; 84484; 85025; 85027; 85610; 85730; 86850; 86900; 86901; 87040; 87070; 87075; 87086; 87102; 87116; 87205; 87206; 87210; 87899; 88108; 88305-TC; 88341-TC; 93005; 93010; 97116-GP; 97161-GP; 99285-25; C9803; J2997; U0003

== ENCOUNTER 2020-11-04 07:41 | Day surgery (SDC) | payer BC ==
[2020-11-04] MEDS ORDERED: SODIUM CHLORIDE 250 ML IVPB ONE (09:00)
[2020-11-04 09:15] VITALS: BP 119/61; PULSE 99; TEMP 97.9
[2020-11-04] MEDS ORDERED: PEMBROLIZUMAB 200 MG in SODIUM CHLORIDE 50 ML IV ONE (09:30)
== END 2020-11-04 10:10 | disposition home or self-care (01) ==
LOC: JONCCHEMO 07:41
PROVIDERS: ATTEND Internal Medicine Hematology & Oncology
DX: Z51.11 Encounter for antineoplastic chemotherapy (principal); C18.9 Malignant neoplasm of colon, unspecified; C78.7 Secondary malignant neoplasm of liver and intrahepatic bile duct
CPT/HCPCS: 96413; J9271

== ENCOUNTER 2020-11-24 07:08 | Day surgery (SDC) | payer BC ==
[2020-11-24] MEDS ORDERED: SODIUM CHLORIDE 250 ML IV ONE (10:00)
[2020-11-24 10:20] LABS: BASO % 0.8 % (0-2.0); EOS % 1.5 % (0-4.5); HEMATOCRIT 30.6 % (35.4-49); HEMOGLOBIN 9.8 GM/dL (11.7-16.9); LYMPH % 15.9 % (8-40); MCH 23.1 pg (25.7-33.7); MEAN CELL VOLUME 72.1 fl (80-96); MONO % 7.3 % (3.8-10.2); NEUT % 74.5 % (42.8-82.8); PLATELET COUNT 265 K/MM3 (134-434); RBC 4.24 M/mm3 (4.00-5.60); WHITE BLOOD COUNT 6.7 K/mm3 (4.0-10.0)
[2020-11-24] MEDS ORDERED: PEMBROLIZUMAB 200 MG in SODIUM CHLORIDE 50 ML IV ONE (10:30)
[2020-11-24 10:37] LABS: POTASSIUM 3.5 mmol/L (3.5-5.1)
[2020-11-24 10:40] LABS: BLOOD UREA NITROGEN 20.6 mg/dL (7-18); CALCIUM 9.1 mg/dL (8.5-10.1)
[2020-11-24 10:44] LABS: CREATININE 0.9 mg/dL (0.55-1.3)
[2020-11-24 13:33] LABS: AMYLASE 51 U/L (25-115); LIPASE 162 U/L (73-393)
[2020-11-24 13:36] LABS: IRON SERUM 37 ug/dL (50-175); TOTAL IRON BINDING CAPACITY 360 ug/dL (250-450)
[2020-11-24 17:59] VITALS: BP 128/65; PULSE 83; TEMP 97.7
== END 2020-11-24 13:45 | disposition home or self-care (01) ==
LOC: JONCCHEMO 07:08
PROVIDERS: ATTEND Internal Medicine Hematology & Oncology
DX: Z51.11 Encounter for antineoplastic chemotherapy (principal); C18.9 Malignant neoplasm of colon, unspecified; C78.7 Secondary malignant neoplasm of liver and intrahepatic bile duct
CPT/HCPCS: 36415; 80048; 82150; 82378; 82533; 82728; 83540; 83550; 83690; 84439; 85025; 96361; 96413; J9271

== ENCOUNTER 2020-12-15 07:19 | Day surgery (SDC) | payer BC ==
[2020-12-15 08:40] LABS: BASO % 0.5 % (0-2.0); EOS % 3.2 % (0-4.5); HEMATOCRIT 32.4 % (35.4-49); HEMOGLOBIN 10.3 GM/dL (11.7-16.9); LYMPH % 17.4 % (8-40); MCH 22.8 pg (25.7-33.7); MCHC 31.7 g/dl (32.0-35.9); MEAN CELL VOLUME 71.9 fl (80-96); MEAN PLT VOLUME 9.2 fl (7.5-11.1); MONO % 9.2 % (3.8-10.2); NEUT % 69.7 % (42.8-82.8); PLATELET COUNT 237 K/MM3 (134-434); RDW 17.6 % (11.9-15.9); WHITE BLOOD COUNT 6.6 K/mm3 (4.0-10.0)
[2020-12-15] MEDS ORDERED: SODIUM CHLORIDE 250 ML IV ONE (09:00)
[2020-12-15 09:03] LABS: ALBUMIN 3.4 g/dl (3.4-5.0); AMYLASE 44 U/L (25-115); CALCIUM 8.7 mg/dL (8.5-10.1); LIPASE 131 U/L (73-393)
[2020-12-15 09:05] LABS: MAGNESIUM 2.1 mg/dL (1.8-2.4)
[2020-12-15 09:07] LABS: BILIRUBIN,DIRECT 0.2 mg/dL (0.0-0.2); CREATININE 0.9 mg/dL (0.55-1.3)
[2020-12-15 09:09] LABS: BILIRUBIN,TOTAL 0.5 mg/dL (0.2-1)
[2020-12-15 09:10] LABS: TOT PROT 6.6 g/dl (6.4-8.2)
[2020-12-15] MEDS ORDERED: IRON SUCROSE INJECTION 200 MG in SODIUM CHLORIDE 100 ML IVPB ONE (09:30)
[2020-12-15] MEDS ORDERED: PEMBROLIZUMAB 200 MG in SODIUM CHLORIDE 50 ML IV ONE (10:00)
[2020-12-15 14:59] VITALS: BP 108/62; PULSE 89; TEMP 97.9
== END 2020-12-15 13:00 | disposition home or self-care (01) ==
LOC: JONCCHEMO 07:19
PROVIDERS: ATTEND Internal Medicine Hematology & Oncology
DX: Z51.11 Encounter for antineoplastic chemotherapy (principal); C18.9 Malignant neoplasm of colon, unspecified; C78.7 Secondary malignant neoplasm of liver and intrahepatic bile duct; D50.9 Iron deficiency anemia, unspecified
CPT/HCPCS: 36415; 80048; 80076; 82150; 82530; 83615; 83690; 83735; 84439; 84443; 85025; 96361; 96367; 96413; J1756; J9271

== ENCOUNTER 2021-01-02 17:28 | Inpatient (IN) | payer BC ==
[2021-01-02 19:11] LABS: BASO % 0.1 % (0-2.0); EOS % 0.4 % (0-4.5); HEMATOCRIT 32.8 % (35.4-49); HEMOGLOBIN 10.6 GM/dL (11.7-16.9); LYMPH % 5.6 % (8-40); MCH 22.7 pg (25.7-33.7); MCHC 32.3 g/dl (32.0-35.9); MEAN CELL VOLUME 70.4 fl (80-96); MEAN PLT VOLUME 9.6 fl (7.5-11.1); MONO % 6.7 % (3.8-10.2); NEUT % 87.2 % (42.8-82.8); PLATELET COUNT 192 K/MM3 (134-434); RBC 4.65 M/mm3 (4.00-5.60); RDW 17.7 % (11.9-15.9); WHITE BLOOD COUNT 9.3 K/mm3 (4.0-10.0)
[2021-01-02] MEDS ORDERED: traMADol HCL 50 MG TABLET PO ONE (19:14)
[2021-01-02] MEDS ORDERED: traMADol HCL 50 MG TABLET ONE (19:23)
[2021-01-02 19:48] LABS: CHLORIDE 98 mmol/L (98-107); SODIUM 133 mmol/L (136-145)
[2021-01-02 19:51] LABS: ALBUMIN 2.7 g/dl (3.4-5.0); ANION GAP 9 MMOL/L (8-16); CO2 26 mmol/L (21-32); LIPASE 43 U/L (73-393); MAGNESIUM 2.1 mg/dL (1.8-2.4)
[2021-01-02 19:52] LABS: GLUCOSE,RANDOM 113 mg/dL (74-106)
[2021-01-02 19:54] LABS: CREATININE 1.1 mg/dL (0.55-1.3); SGOT/AST 20 U/L (15-37); SGPT/ALT 13 U/L (13-61)
[2021-01-02 19:56] LABS: ALK PHOS 55 U/L (45-117); BILIRUBIN,TOTAL 1.2 mg/dL (0.2-1)
[2021-01-02 20:09] LABS: LACTIC ACID 2.2 mmol/L (0.4-2.0)
[2021-01-02 20:28] LABS: EPI CELLS 3 /uL (0-25.1); HYALINE CASTS 1 /uL (0-3.1); URINE APPEARANCE CLEAR; URINE BACTERIA 24 /uL (0-1359); URINE BILIRUBIN NEGATIVE (NEGATIVE); URINE COLOR YELLOW; URINE GLUCOSE (UA) NEGATIVE (NEGATIVE); URINE KETONE NEGATIVE (NEGATIVE); URINE LEUK ESTERASE NEGATIVE (NEGATIVE); URINE NITRITE NEGATIVE (NEGATIVE); URINE PROTEIN 1+ (NEGATIVE); URINE RBC 38 /uL (0-23.9); URINE WBC 6 /uL (0-25.8)
[2021-01-02 20:52] LABS: ANISOCYTOSIS 2+; MACROCYTOSIS 0; OVALOCYTE 1+; PLATELET ESTIMATE NORMAL
[2021-01-02] MEDS ORDERED: PIPERACILLIN/TAZOB 4.5 GM 4.5 GM in DEXTROSE 5%-WATER 100 ML IVPB ONE (21:51)
[2021-01-02] MEDS ORDERED: PIPERACILLIN/TAZOB 4.5 GM 4.5 GM/100 ML BAG IVPB ONE (22:12)
[2021-01-02] MEDS ORDERED: SODIUM CHLORIDE 1,000 ML IV STA (22:18)
[2021-01-02 22:53] LABS: INR 1.26 (0.83-1.09); PROTHROMBIN TIME (PATIENT) 15.2 SEC (9.7-13.0)
[2021-01-02 22:56] LABS: ACTIVATED PTT 27.8 SECONDS (25.2-36.5)
[2021-01-03] MEDS ORDERED: PROPOFOL 20 ML ONE ×2 (00:32)
[2021-01-03] MEDS ORDERED: LIDOCAINE HCL/PF 2% SDV 5ML VIAL ONE (00:32)
[2021-01-03] MEDS ORDERED: fentaNYL CITRATE 250 MCG/5 ML VIAL ONE ×3 (00:32→01:23)
[2021-01-03] MEDS ORDERED: SUCCINYLCHOLINE CHLORIDE 200 MG/10 ML SYRINGE ONE (00:33)
[2021-01-03] MEDS ORDERED: ROCURONIUM BROMIDE 50 MG/5 ML SYRINGE ONE ×2 (00:33→02:04)
[2021-01-03] MEDS ORDERED: PROPOFOL 1,000,000 MCG/100 ML VIAL ONE (01:35)
[2021-01-03] MEDS ORDERED: BENZOIN/ALOE VERA/STORAX/TOLU 58 ML BOTTLE ONE (03:08)
[2021-01-03] MEDS ORDERED: PROPOFOL 1,000,000 MCG/100 ML VIAL IVPB SCH (03:45)
[2021-01-03 05:18] LABS: BASO % 0.1 % (0-2.0); HEMATOCRIT 32.5 % (35.4-49); HEMOGLOBIN 10.3 GM/dL (11.7-16.9); LYMPH % 7.1 % (8-40); MCH 22.4 pg (25.7-33.7); MCHC 31.6 g/dl (32.0-35.9); MEAN CELL VOLUME 70.9 fl (80-96); MEAN PLT VOLUME 9.3 fl (7.5-11.1); MONO % 10.2 % (3.8-10.2); NEUT % 82.6 % (42.8-82.8); PLATELET COUNT 190 K/MM3 (134-434); RBC 4.58 M/mm3 (4.00-5.60); RDW 18.2 % (11.9-15.9); WHITE BLOOD COUNT 12.3 K/mm3 (4.0-10.0)
[2021-01-03 05:21] LABS: CHLORIDE 101 mmol/L (98-107); SODIUM 135 mmol/L (136-145)
[2021-01-03 05:23] LABS: CALCIUM 7.3 mg/dL (8.5-10.1)
[2021-01-03 05:24] LABS: ANION GAP 7 MMOL/L (8-16); BLOOD UREA NITROGEN 31.2 mg/dL (7-18); CO2 26 mmol/L (21-32); GLUCOSE,RANDOM 78 mg/dL (74-106)
[2021-01-03 05:27] LABS: SGOT/AST 28 U/L (15-37); SGPT/ALT 13 U/L (13-61)
[2021-01-03 05:28] LABS: BILIRUBIN,TOTAL 1.1 mg/dL (0.2-1)
[2021-01-03 05:29] LABS: TOT PROT 4.9 g/dl (6.4-8.2)
[2021-01-03 05:30] LABS: ALK PHOS 51 U/L (45-117)
[2021-01-03 05:40] LABS: ALBUMIN 2.1 g/dl (3.4-5.0)
[2021-01-03] MEDS ORDERED: FUROSEMIDE 40 MG/4 ML INJECTABLE VIAL IVPUSH STA (05:41)
[2021-01-03] MEDS: LACTATED RINGERS SOLUTION 1,000 ML/1,000 ML INFUS.BAG IV SCH ×3 (06:02→23:10)
[2021-01-03] MEDS ORDERED: DEXTROSE 5%-WATER - 50 ML IVPB ONE (09:29)
[2021-01-03] MEDS ORDERED: PIPERACILLIN/TAZOBACTAM 3.375 GM VIAL IVPB ONE (09:29)
[2021-01-03] MEDS: MUPIROCIN 2% TOPICAL OINTMENT FOR DECOLONIZATION NS SCH ×2 (09:58→21:03)
[2021-01-03] MEDS ORDERED: PIPERACILLIN/TAZOB 3.375 GM 3.375 GM in DEXTROSE 5%-WATER - 50 ML IVPB SCH (10:00)
[2021-01-03] MEDS: morphine SULFATE 4 MG/ML VIAL IVPUSH PRN ×4 (11:02→23:04)
[2021-01-03] MEDS ORDERED: PT OWN MED DRAWER 7, Y5N ONE (12:59)
[2021-01-03 14:50] LABS: PHOSPHOROUS 4.6 mg/dL (2.5-4.9)
[2021-01-03] MEDS ORDERED: DEXTROSE 5%-WATER 100 ML IVPB ONE ×2 (16:32→23:01)
[2021-01-03] MEDS ORDERED: PIPERACILLIN/TAZOBACTAM 4.5 GM VIAL IVPB ONE ×2 (16:32→23:01)
[2021-01-03] MEDS: PIPERACILLIN/TAZOB 4.5 GM 4.5 GM in DEXTROSE 5%-WATER 100 ML IVPB SCH (17:16)
[2021-01-03] MEDS: CHLORHEXIDINE GLUCONATE 4% CLEANSER FOR DECOLONIZATION TP SCH (21:03)
[2021-01-04] MEDS: PIPERACILLIN/TAZOB 4.5 GM 4.5 GM in DEXTROSE 5%-WATER 100 ML IVPB SCH ×3 (01:18→17:55)
[2021-01-04] MEDS: morphine SULFATE 4 MG/ML VIAL IVPUSH PRN ×6 (02:31→21:33)
[2021-01-04] MEDS ORDERED: DEXTROSE 5%-WATER 100 ML IVPB ONE ×3 (08:25→17:38)
[2021-01-04] MEDS ORDERED: PIPERACILLIN/TAZOBACTAM 4.5 GM VIAL IVPB ONE ×3 (08:25→17:38)
[2021-01-04] MEDS: MUPIROCIN 2% TOPICAL OINTMENT FOR DECOLONIZATION NS SCH ×2 (09:32→21:07)
[2021-01-04] MEDS ORDERED: PIPERACILLIN/TAZOB 3.375 GM 3.375 GM in DEXTROSE 5%-WATER - 50 ML IVPB SCH (10:00)
[2021-01-04 10:30] LABS: BASO % 0.1 % (0-2.0); EOS % 0.4 % (0-4.5); HEMATOCRIT 28.3 % (35.4-49); LYMPH % 6.1 % (8-40); MCH 22.5 pg (25.7-33.7); MCHC 31.9 g/dl (32.0-35.9); MEAN CELL VOLUME 70.6 fl (80-96); MEAN PLT VOLUME 8.8 fl (7.5-11.1); NEUT % 81.4 % (42.8-82.8); PLATELET COUNT 170 K/MM3 (134-434); RDW 18.2 % (11.9-15.9); WHITE BLOOD COUNT 6.8 K/mm3 (4.0-10.0)
[2021-01-04 10:57] LABS: ALBUMIN 1.9 g/dl (3.4-5.0); BLOOD UREA NITROGEN 25.1 mg/dL (7-18); CALCIUM 7.6 mg/dL (8.5-10.1); MAGNESIUM 2.6 mg/dL (1.8-2.4)
[2021-01-04 10:59] LABS: CREATININE 0.8 mg/dL (0.55-1.3)
[2021-01-04] MEDS: LACTATED RINGERS SOLUTION 1,000 ML/1,000 ML INFUS.BAG IV SCH ×2 (11:00→11:09)
[2021-01-04 11:01] LABS: PHOSPHOROUS 3.6 mg/dL (2.5-4.9); TOT PROT 4.9 g/dl (6.4-8.2)
[2021-01-04 16:10] VITALS: BMI 32.1
[2021-01-04] MEDS: metoPROLOL SUCCINATE 25 MG TAB.SR.24H (FP) PO SCH (20:03)
[2021-01-04] MEDS: CHLORHEXIDINE GLUCONATE 4% CLEANSER FOR DECOLONIZATION TP SCH (21:07)
[2021-01-04 23:31] LABS: HIV INTERPRETATION NEGATIVE (NEGATIVE)
[2021-01-04] MEDS: ACETAMINOPHEN 1000 MG/100 ML VIAL (NON FORMULARY) IVPB PRN (23:45)
[2021-01-05] MEDS ORDERED: DEXTROSE 5%-WATER 100 ML IVPB ONE ×3 (00:48→17:13)
[2021-01-05] MEDS ORDERED: PIPERACILLIN/TAZOBACTAM 4.5 GM VIAL IVPB ONE ×3 (00:48→17:13)
[2021-01-05] MEDS: morphine SULFATE 4 MG/ML VIAL IVPUSH PRN ×6 (00:54→22:33)
[2021-01-05] MEDS: PIPERACILLIN/TAZOB 4.5 GM 4.5 GM in DEXTROSE 5%-WATER 100 ML IVPB SCH ×3 (02:49→17:20)
[2021-01-05 06:47] LABS: BASO % 0.6 % (0-2.0); EOS % 2.1 % (0-4.5); HEMATOCRIT 30.6 % (35.4-49); HEMOGLOBIN 9.5 GM/dL (11.7-16.9); LYMPH % 9.2 % (8-40); MCH 22.3 pg (25.7-33.7); MCHC 31.1 g/dl (32.0-35.9); MEAN CELL VOLUME 71.8 fl (80-96); MEAN PLT VOLUME 9.8 fl (7.5-11.1); MONO % 11.3 % (3.8-10.2); NEUT % 76.8 % (42.8-82.8); PLATELET COUNT 213 K/MM3 (134-434); RBC 4.26 M/mm3 (4.00-5.60); RDW 18.2 % (11.9-15.9)
[2021-01-05 07:07] LABS: CALCIUM 7.5 mg/dL (8.5-10.1)
[2021-01-05 07:09] LABS: MAGNESIUM 2.8 mg/dL (1.8-2.4)
[2021-01-05 07:12] LABS: CREATININE 0.7 mg/dL (0.55-1.3); PHOSPHOROUS 3.8 mg/dL (2.5-4.9)
[2021-01-05 07:13] LABS: BILIRUBIN,TOTAL 0.8 mg/dL (0.2-1); TOT PROT 5.2 g/dl (6.4-8.2)
[2021-01-05] MEDS: ACETAMINOPHEN 1000 MG/100 ML VIAL (NON FORMULARY) IVPB PRN ×2 (08:05→15:14)
[2021-01-05 08:51] LABS: ANISOCYTOSIS 2+; MACROCYTOSIS 0; OVALOCYTE 1+; PLATELET ESTIMATE NORMAL; TEAR DROP CELLS 0
[2021-01-05] MEDS: metoPROLOL SUCCINATE 25 MG TAB.SR.24H (FP) PO SCH (09:40)
[2021-01-05] MEDS: MUPIROCIN 2% TOPICAL OINTMENT FOR DECOLONIZATION NS SCH (09:40)
[2021-01-05] MEDS: HEPARIN NA (PORCINE) 5,000 UNITS/ML 1ML VIAL SQ SCH ×2 (13:28→22:33)
[2021-01-05] MEDS ORDERED: ACETAMINOPHEN 1000 MG/100 ML VIAL (NON FORMULARY) IVPB PRN (19:03)
[2021-01-05] MEDS ORDERED: MUPIROCIN 2% TOPICAL OINTMENT FOR DECOLONIZATION NS SCH (22:00)
[2021-01-05] MEDS ORDERED: CHLORHEXIDINE GLUCONATE 4% CLEANSER FOR DECOLONIZATION TP SCH (22:00)
[2021-01-06] MEDS ORDERED: morphine CARPU-JECT 4 MG/1 ML DISP.SYRIN IVPUSH PRN (00:08)
[2021-01-06] MEDS: ACETAMINOPHEN 1000 MG/100 ML VIAL (NON FORMULARY) IVPB PRN ×3 (00:36→23:44)
[2021-01-06] MEDS ORDERED: PIPERACILLIN/TAZOBACTAM 4.5 GM VIAL IVPB ONE ×3 (01:11→18:07)
[2021-01-06] MEDS ORDERED: DEXTROSE 5%-WATER 100 ML IVPB ONE ×3 (01:11→18:07)
[2021-01-06] MEDS: PIPERACILLIN/TAZOB 4.5 GM 4.5 GM in DEXTROSE 5%-WATER 100 ML IVPB SCH ×3 (01:38→18:23)
[2021-01-06] MEDS: HEPARIN NA (PORCINE) 5,000 UNITS/ML 1ML VIAL SQ SCH ×3 (05:36→21:24)
[2021-01-06] MEDS: morphine SULFATE 4 MG/ML VIAL IVPUSH PRN ×3 (05:36→12:48)
[2021-01-06] MEDS: metoPROLOL SUCCINATE 25 MG TAB.SR.24H (FP) PO SCH (09:08)
[2021-01-06] MEDS: oxyCODONE HCL 5 MG TABLET PO PRN ×2 (15:36→21:24)
[2021-01-06 16:08] LABS: HEP B CORE AB, TOT Negative (Negative)
[2021-01-07] MEDS ORDERED: PIPERACILLIN/TAZOBACTAM 4.5 GM VIAL IVPB ONE ×3 (01:10→17:01)
[2021-01-07] MEDS ORDERED: DEXTROSE 5%-WATER 100 ML IVPB ONE ×3 (01:11→17:01)
[2021-01-07] MEDS: PIPERACILLIN/TAZOB 4.5 GM 4.5 GM in DEXTROSE 5%-WATER 100 ML IVPB SCH ×3 (01:14→17:03)
[2021-01-07] MEDS: oxyCODONE HCL 5 MG TABLET PO PRN ×3 (05:13→21:02)
[2021-01-07] MEDS: HEPARIN NA (PORCINE) 5,000 UNITS/ML 1ML VIAL SQ SCH ×3 (05:14→21:02)
[2021-01-07] MEDS: ACETAMINOPHEN 325 MG TABLET (FP) PO PRN ×2 (05:29→17:00)
[2021-01-07] MEDS: metoPROLOL SUCCINATE 25 MG TAB.SR.24H (FP) PO SCH (09:18)
[2021-01-07 14:05] LABS: HEMATOCRIT 29.3 % (35.4-49); HEMOGLOBIN 9.2 GM/dL (11.7-16.9); MCH 22.3 pg (25.7-33.7); MCHC 31.4 g/dl (32.0-35.9); MEAN CELL VOLUME 70.8 fl (80-96); MEAN PLT VOLUME 9.8 fl (7.5-11.1); PLATELET COUNT 220 K/MM3 (134-434); RBC 4.13 M/mm3 (4.00-5.60); RDW 18.2 % (11.9-15.9)
[2021-01-07 14:25] LABS: CALCIUM 7.5 mg/dL (8.5-10.1)
[2021-01-07 14:26] LABS: BLOOD UREA NITROGEN 11.2 mg/dL (7-18); MAGNESIUM 2.6 mg/dL (1.8-2.4)
[2021-01-07 14:29] LABS: CREATININE 0.5 mg/dL (0.55-1.3)
[2021-01-07 14:30] LABS: TOT PROT 5.3 g/dl (6.4-8.2)
[2021-01-07 14:31] LABS: BILIRUBIN,TOTAL 0.5 mg/dL (0.2-1)
[2021-01-07] MEDS ORDERED: POTASSIUM CHLORIDE TABS 10 MEQ TABLET.ER (FP) PO ONE ×2 (21:20→21:45)
[2021-01-08] MEDS ORDERED: PIPERACILLIN/TAZOBACTAM 4.5 GM VIAL IVPB ONE ×2 (01:02→08:33)
[2021-01-08] MEDS ORDERED: DEXTROSE 5%-WATER 100 ML IVPB ONE ×2 (01:02→08:34)
[2021-01-08] MEDS: PIPERACILLIN/TAZOB 4.5 GM 4.5 GM in DEXTROSE 5%-WATER 100 ML IVPB SCH ×2 (01:27→09:44)
[2021-01-08] MEDS: ACETAMINOPHEN 325 MG TABLET (FP) PO PRN (01:28)
[2021-01-08] MEDS: HEPARIN NA (PORCINE) 5,000 UNITS/ML 1ML VIAL SQ SCH ×2 (05:31→13:24)
[2021-01-08] MEDS: oxyCODONE HCL 5 MG TABLET PO PRN ×2 (05:32→13:23)
[2021-01-08 07:55] LABS: BLOOD UREA NITROGEN 7.2 mg/dL (7-18); CALCIUM 7.4 mg/dL (8.5-10.1)
[2021-01-08 07:59] LABS: CREATININE 0.6 mg/dL (0.55-1.3)
[2021-01-08] MEDS: metoPROLOL SUCCINATE 25 MG TAB.SR.24H (FP) PO SCH (09:45)
[2021-01-08 09:50] VITALS: TEMP 98.2
[2021-01-08] MEDS ORDERED: PT OWN MED DRAWER 7, Y5N ONE (13:00)
[2021-01-08 13:19] VITALS: BP 103/64; PULSE 86
== END 2021-01-08 17:37 | disposition home health service (06) | DRG 329 ==
LOC: JER 17:28 → JERBED 22:39 → JICU 01-03 03:52 → J4S 01-05 17:07
PROVIDERS: ADMIT Family Medicine; ATTEND Family Medicine
PROC: 0W9G0ZZ Drainage of Peritoneal Cavity, Open Approach (ICD-10-PCS; 2021-01-02)
PROC: 0DTF0ZZ Resection of Right Large Intestine, Open Approach (ICD-10-PCS; principal; 2021-01-02 23:30)
PROC: 0D1B0Z4 Bypass Ileum to Cutaneous, Open Approach (ICD-10-PCS; 2021-01-02 23:30)
DX: C18.9 Malignant neoplasm of colon, unspecified (principal); K63.1 Perforation of intestine (nontraumatic); K65.9 Peritonitis, unspecified; C78.7 Secondary malignant neoplasm of liver and intrahepatic bile duct; E87.2 Acidosis; I24.8 Other forms of acute ischemic heart disease; E11.9 Type 2 diabetes mellitus without complications; I10 Essential (primary) hypertension; R16.2 Hepatomegaly with splenomegaly, not elsewhere classified; K66.8 Other specified disorders of peritoneum; R59.0 Localized enlarged lymph nodes; I11.0 Hypertensive heart disease with heart failure; I50.9 Heart failure, unspecified; I36.1 Nonrheumatic tricuspid (valve) insufficiency; I25.10 Atherosclerotic heart disease of native coronary artery without angina pectoris; D64.9 Anemia, unspecified; Z86.19 Personal history of other infectious and parasitic diseases
CPT/HCPCS: 36415; 71045-TC-FY; 71260-TC; 74177-TC; 80048; 80053; 81003; 82550; 83605; 83690; 83735; 84100; 84484; 85025; 85027; 85610; 85730; 86704; 86706; 86707; 86708; 86709; 86850; 86900; 86901; 87040; 87086; 87340; 87389; 87522; 88305-TC; 88309-TC; 93005; 93010; 94002; 94760; 97116-GP; 97162-GP; 99291; C9803; J0131; J1644; Q9967; U0003; U0005

== ENCOUNTER 2021-01-09 13:50 | Emergency (ER) | payer BC ==
[2021-01-09 15:05] VITALS: BP 111/60; PULSE 94; TEMP 98.4; BMI 29.0
== END 2021-01-09 15:30 | disposition home or self-care (01) ==
LOC: FER 13:50
DX: K94.09 Other complications of colostomy (principal)
CPT/HCPCS: 99283-25

== ENCOUNTER 2021-02-04 07:06 | Day surgery (SDC) | payer BC ==
[2021-02-04] MEDS ORDERED: SODIUM CHLORIDE 250 ML IV ONE (09:00)
[2021-02-04] MEDS ORDERED: IRON SUCROSE INJECTION 200 MG in SODIUM CHLORIDE 100 ML IVPB ONE (09:00)
[2021-02-04 09:18] LABS: BASO % 0.7 % (0-2.0); EOS % 2.2 % (0-4.5); HEMATOCRIT 33.8 % (35.4-49); HEMOGLOBIN 10.7 GM/dL (11.7-16.9); MCH 21.6 pg (25.7-33.7); MCHC 31.7 g/dl (32.0-35.9); MEAN PLT VOLUME 8.3 fl (7.5-11.1); MONO % 7.8 % (3.8-10.2); NEUT % 68.3 % (42.8-82.8); PLATELET COUNT 303 10^3/uL (134-434); RBC 4.96 M/mm3 (4.00-5.60); RDW 17.5 % (11.9-15.9); WHITE BLOOD COUNT 7.7 K/mm3 (4.0-10.0)
[2021-02-04 09:37] LABS: CALCIUM 9.4 mg/dL (8.5-10.1)
[2021-02-04 09:38] LABS: ALBUMIN 3.6 g/dl (3.4-5.0); BLOOD UREA NITROGEN 13.8 mg/dL (7-18); MAGNESIUM 1.9 mg/dL (1.8-2.4)
[2021-02-04 09:40] LABS: BILIRUBIN,DIRECT 0.1 mg/dL (0.0-0.2)
[2021-02-04 09:41] LABS: BILIRUBIN,TOTAL 0.3 mg/dL (0.2-1); CREATININE 1.1 mg/dL (0.55-1.3); TOT PROT 7.1 g/dl (6.4-8.2)
[2021-02-04] MEDS ORDERED: PEMBROLIZUMAB 200 MG in SODIUM CHLORIDE 50 ML IV ONE (10:00)
[2021-02-04 10:24] LABS: ANISOCYTOSIS 3+; MACROCYTOSIS 0; OVALOCYTE 2+; PLATELET ESTIMATE NORMAL
[2021-02-04 15:49] VITALS: BP 139/72; PULSE 89; TEMP 98.2
== END 2021-02-04 14:01 | disposition home or self-care (01) ==
LOC: JONCCHEMO 07:06
PROVIDERS: ATTEND Internal Medicine Hematology & Oncology
DX: Z51.11 Encounter for antineoplastic chemotherapy (principal); C18.9 Malignant neoplasm of colon, unspecified; C78.7 Secondary malignant neoplasm of liver and intrahepatic bile duct; D50.9 Iron deficiency anemia, unspecified
CPT/HCPCS: 36415; 80048; 80076; 82150; 82533; 82728; 83540; 83550; 83690; 83735; 84439; 84443; 85025; 96361; 96367; 96413; J1756; J9271

== ENCOUNTER 2021-02-25 06:29 | Day surgery (SDC) | payer BC ==
[2021-02-25] MEDS ORDERED: SODIUM CHLORIDE 250 ML IV ONE (10:00)
[2021-02-25] MEDS ORDERED: IRON SUCROSE INJECTION 200 MG in SODIUM CHLORIDE 100 ML IVPB ONE (10:00)
[2021-02-25 10:40] LABS: BASO % 0.7 % (0-2.0); EOS % 2.6 % (0-4.5); HEMATOCRIT 36.1 % (35.4-49); HEMOGLOBIN 11.2 GM/dL (11.7-16.9); LYMPH % 22.8 % (8-40); MCH 22.3 pg (25.7-33.7); MCHC 31.1 g/dl (32.0-35.9); MEAN CELL VOLUME 71.8 fl (80-96); MEAN PLT VOLUME 9.2 fl (7.5-11.1); MONO % 8.8 % (3.8-10.2); NEUT % 65.1 % (42.8-82.8); PLATELET COUNT 134 10^3/uL (134-434); RBC 5.03 M/mm3 (4.00-5.60); RDW 21.9 % (11.9-15.9); WHITE BLOOD COUNT 4.6 K/mm3 (4.0-10.0)
[2021-02-25] MEDS ORDERED: PEMBROLIZUMAB 200 MG in SODIUM CHLORIDE 50 ML IV ONE (11:00)
[2021-02-25 11:08] LABS: ALBUMIN 3.8 g/dl (3.4-5.0); CALCIUM 8.7 mg/dL (8.5-10.1)
[2021-02-25 11:09] LABS: BLOOD UREA NITROGEN 14.6 mg/dL (7-18)
[2021-02-25 11:10] LABS: MAGNESIUM 1.8 mg/dL (1.8-2.4)
[2021-02-25 11:11] LABS: BILIRUBIN,DIRECT 0.2 mg/dL (0.0-0.2)
[2021-02-25 11:13] LABS: BILIRUBIN,TOTAL 0.6 mg/dL (0.2-1); TOT PROT 6.9 g/dl (6.4-8.2)
[2021-02-25 16:26] VITALS: TEMP 98
[2021-02-25 16:27] VITALS: BP 126/74; PULSE 84
== END 2021-02-25 14:15 | disposition home or self-care (01) ==
LOC: JONCCHEMO 06:29
PROVIDERS: ATTEND Internal Medicine Hematology & Oncology
DX: Z51.11 Encounter for antineoplastic chemotherapy (principal); C18.9 Malignant neoplasm of colon, unspecified; C78.7 Secondary malignant neoplasm of liver and intrahepatic bile duct; D50.9 Iron deficiency anemia, unspecified
CPT/HCPCS: 36415; 80048; 80076; 82150; 82378; 82533; 82728; 83540; 83550; 83690; 83735; 84439; 84443; 85025; 96367; 96413; J1756; J9271

== ENCOUNTER 2021-03-18 07:15 | Day surgery (SDC) | payer BC ==
[2021-03-18] MEDS ORDERED: SODIUM CHLORIDE 250 ML IV ONE (09:00)
[2021-03-18] MEDS ORDERED: IRON SUCROSE INJECTION 200 MG in SODIUM CHLORIDE 100 ML IVPB ONE (09:00)
[2021-03-18 09:24] LABS: BASO % 0.4 % (0-2.0); EOS % 1.5 % (0-4.5); HEMATOCRIT 35.9 % (35.4-49); HEMOGLOBIN 11.6 GM/dL (11.7-16.9); LYMPH % 20.6 % (8-40); MCH 24.2 pg (25.7-33.7); MCHC 32.4 g/dl (32.0-35.9); MEAN CELL VOLUME 74.6 fl (80-96); MEAN PLT VOLUME 8.7 fl (7.5-11.1); MONO % 9.6 % (3.8-10.2); NEUT % 67.9 % (42.8-82.8); PLATELET COUNT 148 10^3/uL (134-434); RBC 4.81 M/mm3 (4.00-5.60); RDW 22.8 % (11.9-15.9); WHITE BLOOD COUNT 5.4 K/mm3 (4.0-10.0)
[2021-03-18 09:53] LABS: CALCIUM 8.7 mg/dL (8.5-10.1)
[2021-03-18 09:54] LABS: ALBUMIN 3.8 g/dl (3.4-5.0); BLOOD UREA NITROGEN 20.3 mg/dL (7-18); MAGNESIUM 1.9 mg/dL (1.8-2.4)
[2021-03-18 09:56] LABS: BILIRUBIN,DIRECT 0.1 mg/dL (0.0-0.2)
[2021-03-18 09:57] LABS: BILIRUBIN,TOTAL 0.4 mg/dL (0.2-1); CREATININE 1.2 mg/dL (0.55-1.3)
[2021-03-18] MEDS ORDERED: PEMBROLIZUMAB 200 MG in SODIUM CHLORIDE 50 ML IV ONE (10:30)
[2021-03-18 12:49] LABS: ANISOCYTOSIS 1+; MACROCYTOSIS 0; OVALOCYTE 1+; PLATELET ESTIMATE DECREASED
[2021-03-18 17:38] VITALS: BP 156/68; PULSE 87; TEMP 97.8
== END 2021-03-18 14:00 | disposition home or self-care (01) ==
LOC: JONCCHEMO 07:15
PROVIDERS: ATTEND Internal Medicine Hematology & Oncology
DX: Z51.11 Encounter for antineoplastic chemotherapy (principal); C18.9 Malignant neoplasm of colon, unspecified; C78.7 Secondary malignant neoplasm of liver and intrahepatic bile duct; C78.00 Secondary malignant neoplasm of unspecified lung; D50.9 Iron deficiency anemia, unspecified
CPT/HCPCS: 36415; 80048; 80076; 82150; 82533; 82728; 83540; 83550; 83690; 83735; 84439; 84443; 85025; 96361; 96367; 96413; J1756; J9271

== ENCOUNTER 2021-04-08 06:34 | Day surgery (SDC) | payer BC ==
[2021-04-08] MEDS ORDERED: SODIUM CHLORIDE 250 ML IV ONE (09:00)
[2021-04-08] MEDS ORDERED: IRON SUCROSE INJECTION 200 MG in SODIUM CHLORIDE 100 ML IVPB ONE (09:30)
[2021-04-08 09:36] LABS: BASO % 0.7 % (0-2.0); EOS % 2.3 % (0-4.5); HEMATOCRIT 37.2 % (35.4-49); HEMOGLOBIN 12.4 GM/dL (11.7-16.9); LYMPH % 24.3 % (8-40); MCH 25.4 pg (25.7-33.7); MCHC 33.3 g/dl (32.0-35.9); MEAN CELL VOLUME 76.2 fl (80-96); MEAN PLT VOLUME 8.7 fl (7.5-11.1); MONO % 10.7 % (3.8-10.2); PLATELET COUNT 166 10^3/uL (134-434); RBC 4.89 M/mm3 (4.00-5.60); RDW 20.7 % (11.9-15.9); WHITE BLOOD COUNT 5.4 K/mm3 (4.0-10.0)
[2021-04-08] MEDS ORDERED: PEMBROLIZUMAB 200 MG in SODIUM CHLORIDE 50 ML IV ONE (10:00)
[2021-04-08 10:05] LABS: BILIRUBIN,TOTAL 0.4 mg/dL (0.2-1); CALCIUM 8.6 mg/dL (8.5-10.1); TOT PROT 7.3 g/dl (6.4-8.2)
[2021-04-08 10:06] LABS: ALBUMIN 3.9 g/dl (3.4-5.0); MAGNESIUM 2.1 mg/dL (1.8-2.4)
[2021-04-08 10:08] LABS: BILIRUBIN,DIRECT 0.2 mg/dL (0.0-0.2); CREATININE 1.2 mg/dL (0.55-1.3)
[2021-04-08 10:14] LABS: ANISOCYTOSIS 2+; MACROCYTOSIS 1+; OVALOCYTE 1+; PLATELET ESTIMATE NORMAL
[2021-04-08 15:24] VITALS: TEMP 98.1
[2021-04-08 15:26] VITALS: BP 130/61; PULSE 73
== END 2021-04-08 12:50 | disposition home or self-care (01) ==
LOC: JONCCHEMO 06:34
PROVIDERS: ATTEND Internal Medicine Hematology & Oncology
DX: Z51.11 Encounter for antineoplastic chemotherapy (principal); C18.9 Malignant neoplasm of colon, unspecified; C78.7 Secondary malignant neoplasm of liver and intrahepatic bile duct; C78.00 Secondary malignant neoplasm of unspecified lung; D50.9 Iron deficiency anemia, unspecified; K63.1 Perforation of intestine (nontraumatic)
CPT/HCPCS: 36415; 80048; 80076; 82150; 82533; 82728; 83540; 83550; 83690; 83735; 85025; 96367; 96413; J1756; J9271

== ENCOUNTER 2021-04-29 07:35 | Day surgery (SDC) | payer BC ==
[2021-04-29] MEDS ORDERED: SODIUM CHLORIDE 250 ML IV ONE (10:00)
[2021-04-29] MEDS ORDERED: IRON SUCROSE INJECTION 200 MG in SODIUM CHLORIDE 100 ML IVPB ONE (10:00)
[2021-04-29 10:03] LABS: BASO % 0.7 % (0-2.0); EOS % 2.7 % (0-4.5); HEMATOCRIT 36.8 % (35.4-49); HEMOGLOBIN 12.4 GM/dL (11.7-16.9); LYMPH % 19.3 % (8-40); MCH 26.5 pg (25.7-33.7); MCHC 33.6 g/dl (32.0-35.9); MEAN CELL VOLUME 78.9 fl (80-96); MONO % 9.1 % (3.8-10.2); NEUT % 68.2 % (42.8-82.8); PLATELET COUNT 156 10^3/uL (134-434); RBC 4.66 M/mm3 (4.00-5.60); RDW 19.2 % (11.9-15.9); WHITE BLOOD COUNT 4.9 K/mm3 (4.0-10.0)
[2021-04-29 10:18] VITALS: TEMP 98.3
[2021-04-29 10:25] LABS: CALCIUM 8.9 mg/dL (8.5-10.1)
[2021-04-29 10:26] LABS: ALBUMIN 3.8 g/dl (3.4-5.0); BLOOD UREA NITROGEN 13.5 mg/dL (7-18); MAGNESIUM 2.4 mg/dL (1.8-2.4)
[2021-04-29 10:28] LABS: BILIRUBIN,DIRECT 0.1 mg/dL (0.0-0.2); CREATININE 1.1 mg/dL (0.55-1.3)
[2021-04-29 10:30] LABS: BILIRUBIN,TOTAL 0.4 mg/dL (0.2-1)
[2021-04-29] MEDS ORDERED: PEMBROLIZUMAB 200 MG in SODIUM CHLORIDE 50 ML IV ONE (11:00)
[2021-04-29 15:54] VITALS: BP 136/58; PULSE 65
== END 2021-04-29 13:00 | disposition home or self-care (01) ==
LOC: JONCCHEMO 07:35
PROVIDERS: ATTEND Internal Medicine Hematology & Oncology
PROC: 3E03305 Introduction of Other Antineoplastic into Peripheral Vein, Percutaneous Approach (ICD-10-PCS; principal; 2021-04-29)
PROC: 3E033GC Introduction of Other Therapeutic Substance into Peripheral Vein, Percutaneous Approach (ICD-10-PCS; 2021-04-29)
PROC: 3E0337Z Introduction of Electrolytic and Water Balance Substance into Peripheral Vein, Percutaneous Approach (ICD-10-PCS; 2021-04-29)
DX: Z51.11 Encounter for antineoplastic chemotherapy (principal); C18.9 Malignant neoplasm of colon, unspecified
CPT/HCPCS: 36415; 80048; 80076; 82150; 82533; 83690; 83735; 84439; 84443; 85025; 96361; 96367; 96413; J1756; J9271

== ENCOUNTER 2021-05-20 07:25 | Day surgery (SDC) | payer BC ==
[2021-05-20] MEDS ORDERED: SODIUM CHLORIDE 250 ML IV ONE (09:00)
[2021-05-20 09:08] LABS: BASO % 0.7 % (0-2.0); HEMATOCRIT 40.3 % (35.4-49); HEMOGLOBIN 13.7 GM/dL (11.7-16.9); LYMPH % 24.1 % (8-40); MEAN CELL VOLUME 79.2 fl (80-96); MEAN PLT VOLUME 9.1 fl (7.5-11.1); MONO % 9.4 % (3.8-10.2); NEUT % 62.8 % (42.8-82.8); PLATELET COUNT 155 10^3/uL (134-434); RBC 5.09 M/mm3 (4.00-5.60); RDW 16.9 % (11.9-15.9); WHITE BLOOD COUNT 5.8 K/mm3 (4.0-10.0)
[2021-05-20 09:23] LABS: ALBUMIN 3.9 g/dl (3.4-5.0); BLOOD UREA NITROGEN 29.2 mg/dL (7-18); CALCIUM 8.5 mg/dL (8.5-10.1)
[2021-05-20 09:25] LABS: MAGNESIUM 1.9 mg/dL (1.8-2.4)
[2021-05-20 09:26] LABS: BILIRUBIN,DIRECT 0.2 mg/dL (0.0-0.2)
[2021-05-20 09:28] LABS: BILIRUBIN,TOTAL 0.4 mg/dL (0.2-1); CREATININE 1.4 mg/dL (0.55-1.3); TOT PROT 7.2 g/dl (6.4-8.2)
[2021-05-20] MEDS ORDERED: IRON SUCROSE INJECTION 200 MG in SODIUM CHLORIDE 100 ML IVPB ONE (10:00)
[2021-05-20] MEDS ORDERED: PEMBROLIZUMAB 200 MG in SODIUM CHLORIDE 50 ML IV ONE (11:00)
[2021-05-20 17:02] VITALS: PULSE 61; TEMP 98.3
[2021-05-20 17:03] VITALS: BP 104/55
== END 2021-05-20 13:30 | disposition home or self-care (01) ==
LOC: JONCCHEMO 07:25
PROVIDERS: ATTEND Internal Medicine Hematology & Oncology
DX: Z51.11 Encounter for antineoplastic chemotherapy (principal); C18.9 Malignant neoplasm of colon, unspecified
CPT/HCPCS: 36415; 80048; 80076; 82150; 82533; 82728; 83540; 83550; 83690; 83735; 84439; 84443; 85025; 96361; 96367; 96413; J1756; J9271

== ENCOUNTER 2021-06-10 07:14 | Day surgery (SDC) | payer BC ==
[2021-06-10] MEDS ORDERED: SODIUM CHLORIDE 250 ML IV ONE (09:00)
[2021-06-10] MEDS ORDERED: IRON SUCROSE INJECTION 200 MG in SODIUM CHLORIDE 100 ML IVPB ONE (09:30)
[2021-06-10 09:31] LABS: HEMATOCRIT 41.4 % (35.4-49); HEMOGLOBIN 13.9 GM/dL (11.7-16.9); MCH 26.8 pg (25.7-33.7); MCHC 33.5 g/dl (32.0-35.9); MEAN CELL VOLUME 80.1 fl (80-96); MEAN PLT VOLUME 8.6 fl (7.5-11.1); PLATELET COUNT 175 10^3/uL (134-434); RBC 5.17 M/mm3 (4.00-5.60); RDW 16.9 % (11.9-15.9); WHITE BLOOD COUNT 7.6 K/mm3 (4.0-10.0)
[2021-06-10 09:49] LABS: CALCIUM 8.7 mg/dL (8.5-10.1)
[2021-06-10 09:50] LABS: BLOOD UREA NITROGEN 22.7 mg/dL (7-18)
[2021-06-10 09:53] LABS: CREATININE 1.5 mg/dL (0.55-1.3)
[2021-06-10] MEDS ORDERED: PEMBROLIZUMAB 200 MG in SODIUM CHLORIDE 50 ML IV ONE (10:00)
[2021-06-10 11:03] LABS: ANISOCYTOSIS 1+; MACROCYTOSIS 0; PLATELET ESTIMATE NORMAL
[2021-06-10 15:03] VITALS: BP 136/59; PULSE 91; TEMP 98.1
== END 2021-06-10 12:00 | disposition home or self-care (01) ==
LOC: JONCCHEMO 07:14
PROVIDERS: ATTEND Internal Medicine Hematology & Oncology
DX: Z51.11 Encounter for antineoplastic chemotherapy (principal); C18.9 Malignant neoplasm of colon, unspecified
CPT/HCPCS: 36415; 80048; 82150; 82533; 82728; 83540; 83550; 83690; 83735; 84439; 84443; 85025; 96361; 96413; J9271

== ENCOUNTER 2021-07-01 07:20 | Day surgery (SDC) | payer BC ==
[2021-07-01 08:58] LABS: HEMATOCRIT 39.7 % (35.4-49); HEMOGLOBIN 13.4 GM/dL (11.7-16.9); MCH 27.5 pg (25.7-33.7); MCHC 33.7 g/dl (32.0-35.9); MEAN CELL VOLUME 81.8 fl (80-96); MEAN PLT VOLUME 9.1 fl (7.5-11.1); PLATELET COUNT 139 10^3/uL (134-434); RBC 4.85 M/mm3 (4.00-5.60); RDW 16.8 % (11.9-15.9); WHITE BLOOD COUNT 5.6 K/mm3 (4.0-10.0)
[2021-07-01 09:27] LABS: ALBUMIN 4.1 g/dl (3.4-5.0); CALCIUM 8.4 mg/dL (8.5-10.1)
[2021-07-01 09:28] LABS: BLOOD UREA NITROGEN 24.1 mg/dL (7-18); MAGNESIUM 2.1 mg/dL (1.8-2.4)
[2021-07-01 09:30] LABS: BILIRUBIN,DIRECT 0.2 mg/dL (0.0-0.2); CREATININE 1.4 mg/dL (0.55-1.3)
[2021-07-01 09:32] LABS: BILIRUBIN,TOTAL 0.5 mg/dL (0.2-1); TOT PROT 7.4 g/dl (6.4-8.2)
[2021-07-01] MEDS ORDERED: SODIUM CHLORIDE 250 ML IV ONE (10:00)
[2021-07-01] MEDS ORDERED: INSULIN (NOVOLOG) ASPART 100 UNITS/ML 10ML VIAL SQ ONE (11:00)
[2021-07-01] MEDS ORDERED: PEMBROLIZUMAB 200 MG in SODIUM CHLORIDE 50 ML IV ONE (11:00)
[2021-07-01 11:21] LABS: ANISOCYTOSIS 1+; MACROCYTOSIS 0; PLATELET ESTIMATE DECREASED
[2021-07-01 15:48] VITALS: BP 114/57; PULSE 85; TEMP 97.8
== END 2021-07-01 12:25 | disposition home or self-care (01) ==
LOC: JONCCHEMO 07:20
PROVIDERS: ATTEND Internal Medicine Hematology & Oncology
DX: Z51.11 Encounter for antineoplastic chemotherapy (principal); C18.9 Malignant neoplasm of colon, unspecified; C78.7 Secondary malignant neoplasm of liver and intrahepatic bile duct; E11.9 Type 2 diabetes mellitus without complications; R07.89 Other chest pain
CPT/HCPCS: 36415; 80048; 80076; 82150; 82378; 82533; 82728; 83540; 83550; 83690; 83735; 84439; 84443; 85025; 93005; 93010; 96361; 96413; J9271

== ENCOUNTER 2021-07-22 07:40 | Day surgery (SDC) | payer BC ==
[2021-07-22 09:48] LABS: BASO % 0.5 % (0-2.0); EOS % 2.7 % (0-4.5); HEMATOCRIT 40.1 % (35.4-49); HEMOGLOBIN 13.5 GM/dL (11.7-16.9); LYMPH % 22.5 % (8-40); MCH 28.1 pg (25.7-33.7); MCHC 33.7 g/dl (32.0-35.9); MEAN CELL VOLUME 83.2 fl (80-96); MEAN PLT VOLUME 9.1 fl (7.5-11.1); MONO % 8.9 % (3.8-10.2); NEUT % 65.4 % (42.8-82.8); PLATELET COUNT 143 10^3/uL (134-434); RBC 4.81 M/mm3 (4.00-5.60); RDW 17.4 % (11.9-15.9); WHITE BLOOD COUNT 6.1 K/mm3 (4.0-10.0)
[2021-07-22] MEDS ORDERED: SODIUM CHLORIDE 250 ML IV ONE (10:00)
[2021-07-22] MEDS ORDERED: IRON SUCROSE INJECTION 200 MG in SODIUM CHLORIDE 100 ML IVPB ONE (10:30)
[2021-07-22 10:42] LABS: ALBUMIN 3.9 g/dl (3.4-5.0); BLOOD UREA NITROGEN 22.4 mg/dL (7-18); CALCIUM 9.4 mg/dL (8.5-10.1); MAGNESIUM 2.4 mg/dL (1.8-2.4)
[2021-07-22 10:45] LABS: BILIRUBIN,DIRECT 0.2 mg/dL (0.0-0.2); CREATININE 1.4 mg/dL (0.55-1.3)
[2021-07-22 10:47] LABS: BILIRUBIN,TOTAL 0.4 mg/dL (0.2-1); TOT PROT 7.4 g/dl (6.4-8.2)
[2021-07-22] MEDS ORDERED: PEMBROLIZUMAB 200 MG in SODIUM CHLORIDE 50 ML IV ONE (11:00)
[2021-07-22 16:08] VITALS: TEMP 98.4
[2021-07-22 16:09] VITALS: BP 106/59; PULSE 75
== END 2021-07-22 14:00 | disposition home or self-care (01) ==
LOC: JONCCHEMO 07:40
PROVIDERS: ATTEND Internal Medicine Hematology & Oncology
DX: Z51.11 Encounter for antineoplastic chemotherapy (principal); C18.9 Malignant neoplasm of colon, unspecified; C78.7 Secondary malignant neoplasm of liver and intrahepatic bile duct
CPT/HCPCS: 36415; 80048; 80076; 82150; 82533; 82728; 83540; 83550; 83690; 83735; 84439; 84443; 85025; 96361; 96413; J9271

== ENCOUNTER 2021-08-19 07:33 | Day surgery (SDC) | payer BC ==
[2021-08-19] MEDS ORDERED: SODIUM CHLORIDE 250 ML IV ONE (09:00)
[2021-08-19 09:15] LABS: BASO % 0.3 % (0-2.0); EOS % 3.4 % (0-4.5); HEMATOCRIT 39.1 % (35.4-49); HEMOGLOBIN 13.4 GM/dL (11.7-16.9); LYMPH % 21.9 % (8-40); MCH 28.6 pg (25.7-33.7); MCHC 34.3 g/dl (32.0-35.9); MEAN CELL VOLUME 83.5 fl (80-96); MONO % 9.8 % (3.8-10.2); NEUT % 64.6 % (42.8-82.8); PLATELET COUNT 137 10^3/uL (134-434); RBC 4.68 M/mm3 (4.00-5.60); RDW 16.8 % (11.9-15.9); WHITE BLOOD COUNT 5.2 K/mm3 (4.0-10.0)
[2021-08-19 09:16] LABS: BLOOD UREA NITROGEN 25.5 mg/dL (7-18); CALCIUM 8.6 mg/dL (8.5-10.1); MAGNESIUM 2.4 mg/dL (1.8-2.4)
[2021-08-19 09:19] LABS: CREATININE 1.2 mg/dL (0.55-1.3)
[2021-08-19 09:20] LABS: BILIRUBIN,DIRECT 0.2 mg/dL (0.0-0.2); BILIRUBIN,TOTAL 0.5 mg/dL (0.2-1)
[2021-08-19] MEDS ORDERED: PEMBROLIZUMAB 200 MG in SODIUM CHLORIDE 50 ML IV ONE (10:00)
[2021-08-19 15:28] VITALS: BP 112/57; PULSE 66; TEMP 98.3
== END 2021-08-19 12:50 | disposition home or self-care (01) ==
LOC: JONCCHEMO 07:33
PROVIDERS: ATTEND Internal Medicine Hematology & Oncology
DX: Z51.11 Encounter for antineoplastic chemotherapy (principal); C18.9 Malignant neoplasm of colon, unspecified; C78.7 Secondary malignant neoplasm of liver and intrahepatic bile duct
CPT/HCPCS: 36415; 80048; 80076; 82150; 82378; 82533; 83690; 83735; 84439; 84443; 85025; 96361; 96413; J9271

== ENCOUNTER 2021-09-09 07:55 | Day surgery (SDC) | payer BC, OTHER ==
[2021-09-09 09:32] LABS: BASO % 0.7 % (0-2.0); HEMATOCRIT 44.9 % (35.4-49); HEMOGLOBIN 14.6 GM/dL (11.7-16.9); LYMPH % 22.7 % (8-40); MCH 27.5 pg (25.7-33.7); MCHC 32.6 g/dl (32.0-35.9); MEAN CELL VOLUME 84.5 fl (80-96); MEAN PLT VOLUME 9.6 fl (7.5-11.1); MONO % 8.3 % (3.8-10.2); NEUT % 66.3 % (42.8-82.8); PLATELET COUNT 162 10^3/uL (134-434); RBC 5.31 M/mm3 (4.00-5.60); RDW 15.7 % (11.9-15.9); WHITE BLOOD COUNT 6.8 K/mm3 (4.0-10.0)
[2021-09-09] MEDS ORDERED: SODIUM CHLORIDE 250 ML IV ONE (10:00)
[2021-09-09 10:18] LABS: ALBUMIN 4.4 g/dl (3.4-5.0); CALCIUM 9.1 mg/dL (8.5-10.1)
[2021-09-09 10:20] LABS: BILIRUBIN,DIRECT 0.2 mg/dL (0.0-0.2)
[2021-09-09 10:23] LABS: BILIRUBIN,TOTAL 0.8 mg/dL (0.2-1); CREATININE 1.5 mg/dL (0.55-1.3); TOT PROT 7.6 g/dl (6.4-8.2)
[2021-09-09] MEDS ORDERED: PEMBROLIZUMAB 200 MG in SODIUM CHLORIDE 50 ML IV ONE (11:00)
[2021-09-09 11:31] LABS: MAGNESIUM 2.2 mg/dL (1.8-2.4)
[2021-09-09 15:30] VITALS: BP 124/66; PULSE 80; TEMP 98.1
== END 2021-09-09 13:40 | disposition home or self-care (01) ==
LOC: JONCCHEMO 07:55
PROVIDERS: ATTEND Internal Medicine Hematology & Oncology
PROC: 3E03305 Introduction of Other Antineoplastic into Peripheral Vein, Percutaneous Approach (ICD-10-PCS; principal; 2021-09-09)
PROC: 3E0337Z Introduction of Electrolytic and Water Balance Substance into Peripheral Vein, Percutaneous Approach (ICD-10-PCS; 2021-09-09)
DX: Z51.11 Encounter for antineoplastic chemotherapy (principal); C18.9 Malignant neoplasm of colon, unspecified; C78.7 Secondary malignant neoplasm of liver and intrahepatic bile duct; C78.00 Secondary malignant neoplasm of unspecified lung
CPT/HCPCS: 36415; 80048; 80076; 82150; 82378; 82728; 83540; 83550; 83690; 83735; 84439; 84443; 85025; 96361; 96413; J9271

== ENCOUNTER 2021-09-30 08:04 | Day surgery (SDC) | payer OTHER, MEDICARE ==
[2021-09-30 08:46] LABS: BASO % 1.5 % (0-2.0); EOS % 2.3 % (0-4.5); HEMATOCRIT 40.6 % (35.4-49); HEMOGLOBIN 14.4 GM/dL (11.7-16.9); LYMPH % 19.3 % (8-40); MCH 29.5 pg (25.7-33.7); MCHC 35.5 g/dl (32.0-35.9); MEAN CELL VOLUME 83.2 fl (80-96); NEUT % 66.9 % (42.8-82.8); PLATELET COUNT 137 10^3/uL (134-434); RBC 4.88 M/mm3 (4.00-5.60); RDW 14.6 % (11.9-15.9); WHITE BLOOD COUNT 6.1 K/mm3 (4.0-10.0)
[2021-09-30 09:15] LABS: BLOOD UREA NITROGEN 22.1 mg/dL (7-18)
[2021-09-30 09:16] LABS: ALBUMIN 4.2 g/dl (3.4-5.0)
[2021-09-30 09:17] LABS: MAGNESIUM 2.2 mg/dL (1.8-2.4)
[2021-09-30 09:18] LABS: BILIRUBIN,DIRECT 0.2 mg/dL (0.0-0.2)
[2021-09-30 09:20] LABS: BILIRUBIN,TOTAL 0.6 mg/dL (0.2-1); TOT PROT 7.3 g/dl (6.4-8.2)
[2021-09-30 09:21] LABS: CREATININE 1.4 mg/dL (0.55-1.3)
[2021-09-30] MEDS ORDERED: SODIUM CHLORIDE 250 ML IV ONE (10:00)
[2021-09-30] MEDS ORDERED: PEMBROLIZUMAB 200 MG in SODIUM CHLORIDE 50 ML IV ONE (11:00)
[2021-09-30 17:55] VITALS: BP 111/63; PULSE 78; TEMP 98.2
[2021-09-30] MEDS ORDERED: PORTA CATH FLUSH 10 ML IVPUSH ONE (17:55)
== END 2021-09-30 12:45 | disposition home or self-care (01) ==
LOC: JONCCHEMO 08:04
PROVIDERS: ATTEND Internal Medicine Hematology & Oncology
DX: Z12.11 Encounter for screening for malignant neoplasm of colon (principal); C18.9 Malignant neoplasm of colon, unspecified; C78.7 Secondary malignant neoplasm of liver and intrahepatic bile duct; C78.00 Secondary malignant neoplasm of unspecified lung; I50.22 Chronic systolic (congestive) heart failure
CPT/HCPCS: 36415; 80048; 80076; 82150; 82378; 82533; 82728; 83540; 83550; 83690; 83735; 84439; 84443; 85025; 96361; 96413; J9271

== ENCOUNTER 2021-10-21 06:48 | Day surgery (SDC) | payer BC, MEDICARE, OTHER ==
[2021-10-21 09:39] LABS: BASO % 0.7 % (0-2.0); EOS % 3.1 % (0-4.5); HEMATOCRIT 42.5 % (35.4-49); HEMOGLOBIN 14.4 GM/dL (11.7-16.9); LYMPH % 19.4 % (8-40); MCH 28.7 pg (25.7-33.7); MCHC 33.8 g/dl (32.0-35.9); MEAN CELL VOLUME 84.8 fl (80-96); MEAN PLT VOLUME 8.9 fl (7.5-11.1); MONO % 8.1 % (3.8-10.2); NEUT % 68.7 % (42.8-82.8); PLATELET COUNT 129 10^3/uL (134-434); RBC 5.01 M/mm3 (4.00-5.60); RDW 14.8 % (11.9-15.9); WHITE BLOOD COUNT 5.8 K/mm3 (4.0-10.0)
[2021-10-21] MEDS ORDERED: PEMBROLIZUMAB 200 MG in SODIUM CHLORIDE 50 ML IV ONE (10:00)
[2021-10-21] MEDS ORDERED: SODIUM CHLORIDE 250 ML IV ONE (10:00)
[2021-10-21 10:12] LABS: CALCIUM 8.7 mg/dL (8.5-10.1)
[2021-10-21 10:13] LABS: ALBUMIN 4.2 g/dl (3.4-5.0); BLOOD UREA NITROGEN 21.1 mg/dL (7-18)
[2021-10-21 10:14] LABS: MAGNESIUM 2.2 mg/dL (1.8-2.4)
[2021-10-21 10:16] LABS: BILIRUBIN,DIRECT 0.2 mg/dL (0.0-0.2); CREATININE 1.3 mg/dL (0.55-1.3)
[2021-10-21 10:17] LABS: TOT PROT 7.1 g/dl (6.4-8.2)
[2021-10-21 10:18] LABS: BILIRUBIN,TOTAL 0.5 mg/dL (0.2-1)
[2021-10-21 11:53] VITALS: TEMP 97.8
[2021-10-21 16:11] VITALS: BP 132/65; PULSE 72
== END 2021-10-21 13:00 | disposition home or self-care (01) ==
LOC: JONCCHEMO 06:48
PROVIDERS: ATTEND Internal Medicine Hematology & Oncology
DX: Z51.11 Encounter for antineoplastic chemotherapy (principal); C18.9 Malignant neoplasm of colon, unspecified; C78.7 Secondary malignant neoplasm of liver and intrahepatic bile duct; C78.00 Secondary malignant neoplasm of unspecified lung
CPT/HCPCS: 36415; 80048; 80076; 82150; 82533; 82728; 83540; 83550; 83690; 83735; 84439; 84443; 85025; 96361; 96413; J9271

== ENCOUNTER 2021-11-11 07:13 | Day surgery (SDC) | payer OTHER, MEDICARE ==
[2021-11-11 09:01] LABS: BASO % 0.6 % (0-2.0); EOS % 3.8 % (0-4.5); HEMATOCRIT 41.5 % (35.4-49); HEMOGLOBIN 13.8 GM/dL (11.7-16.9); LYMPH % 22.5 % (8-40); MCH 28.4 pg (25.7-33.7); MCHC 33.3 g/dl (32.0-35.9); MEAN CELL VOLUME 85.1 fl (80-96); MONO % 8.6 % (3.8-10.2); NEUT % 64.5 % (42.8-82.8); PLATELET COUNT 147 10^3/uL (134-434); RBC 4.87 M/mm3 (4.00-5.60); RDW 14.8 % (11.9-15.9); WHITE BLOOD COUNT 5.6 K/mm3 (4.0-10.0)
[2021-11-11 09:05] LABS: CALCIUM 9.1 mg/dL (8.5-10.1); MAGNESIUM 2.3 mg/dL (1.8-2.4)
[2021-11-11 09:06] LABS: ALBUMIN 4.1 g/dl (3.4-5.0)
[2021-11-11 09:08] LABS: CREATININE 1.4 mg/dL (0.55-1.3); URIC ACID 8.3 mg/dL (2.6-7.2)
[2021-11-11 09:09] LABS: BILIRUBIN,DIRECT 0.2 mg/dL (0.0-0.2)
[2021-11-11 09:11] LABS: BILIRUBIN,TOTAL 0.6 mg/dL (0.2-1)
[2021-11-11] MEDS ORDERED: SODIUM CHLORIDE 250 ML IV ONE (10:00)
[2021-11-11] MEDS ORDERED: PEMBROLIZUMAB 200 MG in SODIUM CHLORIDE 50 ML IV ONE (11:00)
[2021-11-11 15:38] VITALS: BP 110/61; PULSE 82; TEMP 97.8
== END 2021-11-11 14:30 | disposition home or self-care (01) ==
LOC: JONCCHEMO 07:13
PROVIDERS: ATTEND Internal Medicine Hematology & Oncology
DX: Z51.11 Encounter for antineoplastic chemotherapy (principal); C18.9 Malignant neoplasm of colon, unspecified; C78.7 Secondary malignant neoplasm of liver and intrahepatic bile duct; C78.00 Secondary malignant neoplasm of unspecified lung
CPT/HCPCS: 36415; 80053; 80076; 83615; 83735; 84550; 85025; 96361; 96413; J9271

== ENCOUNTER 2021-12-02 17:01 | Day surgery (SDC) | payer BC ==
[2021-12-02 08:40] LABS: BASO % 0.5 % (0-2.0); EOS % 2.6 % (0-4.5); HEMATOCRIT 40.1 % (35.4-49); HEMOGLOBIN 13.9 GM/dL (11.7-16.9); LYMPH % 19.5 % (8-40); MCH 29.1 pg (25.7-33.7); MCHC 34.6 g/dl (32.0-35.9); MEAN CELL VOLUME 83.9 fl (80-96); MEAN PLT VOLUME 8.8 fl (7.5-11.1); NEUT % 69.4 % (42.8-82.8); PLATELET COUNT 147 10^3/uL (134-434); RBC 4.78 M/mm3 (4.00-5.60); WHITE BLOOD COUNT 6.4 K/mm3 (4.0-10.0)
[2021-12-02 08:55] LABS: CALCIUM 8.8 mg/dL (8.5-10.1)
[2021-12-02 08:56] LABS: MAGNESIUM 2.4 mg/dL (1.8-2.4)
[2021-12-02 08:57] LABS: ALBUMIN 3.9 g/dl (3.4-5.0)
[2021-12-02 08:59] LABS: BILIRUBIN,DIRECT 0.2 mg/dL (0.0-0.2); CREATININE 1.5 mg/dL (0.55-1.3)
[2021-12-02 09:01] LABS: BILIRUBIN,TOTAL 0.6 mg/dL (0.2-1); TOT PROT 7.3 g/dl (6.4-8.2)
[2021-12-02 16:51] VITALS: TEMP 98.2
[2021-12-02 16:55] VITALS: BP 122/62; PULSE 80
[~2021-12-02 17:01] MED LIST: PEMBROLIZUMAB 200 MG in SODIUM CHLORIDE 50 ML IV ONE; SODIUM CHLORIDE 250 ML IV ONE
== END 2021-12-02 17:16 | disposition home or self-care (01) ==
LOC: JONCCHEMO 17:01
PROVIDERS: ATTEND Internal Medicine Hematology & Oncology
DX: Z51.11 Encounter for antineoplastic chemotherapy (principal); C18.9 Malignant neoplasm of colon, unspecified; C78.7 Secondary malignant neoplasm of liver and intrahepatic bile duct; C78.00 Secondary malignant neoplasm of unspecified lung
CPT/HCPCS: 36415; 80048; 80076; 82150; 82378; 82533; 82728; 83540; 83550; 83690; 83735; 84439; 84443; 85025; 96361; 96413; J9271

== ENCOUNTER 2021-12-23 06:50 | Day surgery (SDC) | payer OTHER, MEDICARE ==
[2021-12-23 08:46] LABS: BASO % 0.7 % (0-2.0); EOS % 2.9 % (0-4.5); HEMATOCRIT 39.3 % (35.4-49); LYMPH % 16.7 % (8-40); MCH 28.1 pg (25.7-33.7); MCHC 33.1 g/dl (32.0-35.9); MEAN CELL VOLUME 84.9 fl (80-96); MEAN PLT VOLUME 9.1 fl (7.5-11.1); MONO % 8.5 % (3.8-10.2); NEUT % 71.2 % (42.8-82.8); PLATELET COUNT 129 10^3/uL (134-434); RBC 4.63 M/mm3 (4.00-5.60); RDW 15.5 % (11.9-15.9); WHITE BLOOD COUNT 5.5 K/mm3 (4.0-10.0)
[2021-12-23 09:23] LABS: BLOOD UREA NITROGEN 19.9 mg/dL (7-18); CALCIUM 8.7 mg/dL (8.5-10.1)
[2021-12-23 09:24] LABS: MAGNESIUM 2.4 mg/dL (1.8-2.4)
[2021-12-23 09:26] LABS: CREATININE 1.3 mg/dL (0.55-1.3)
[2021-12-23 09:27] LABS: BILIRUBIN,DIRECT 0.2 mg/dL (0.0-0.2)
[2021-12-23 09:28] LABS: BILIRUBIN,TOTAL 0.6 mg/dL (0.2-1)
[2021-12-23] MEDS ORDERED: PEMBROLIZUMAB 200 MG in SODIUM CHLORIDE 50 ML IV ONE (10:00)
[2021-12-23] MEDS ORDERED: SODIUM CHLORIDE 250 ML IV ONE (10:00)
[2021-12-23 15:21] VITALS: TEMP 98.2
[2021-12-23 15:22] VITALS: BP 118/59; PULSE 65
== END 2021-12-23 11:30 | disposition home or self-care (01) ==
LOC: JONCCHEMO 06:50
PROVIDERS: ATTEND Internal Medicine Hematology & Oncology
DX: Z51.11 Encounter for antineoplastic chemotherapy (principal); C18.9 Malignant neoplasm of colon, unspecified; C78.7 Secondary malignant neoplasm of liver and intrahepatic bile duct; C78.00 Secondary malignant neoplasm of unspecified lung
CPT/HCPCS: 36415; 80048; 80076; 82150; 82378; 82533; 82728; 83540; 83550; 83690; 83735; 84439; 84443; 85025; 96361; 96413; J9271

== ENCOUNTER 2022-01-13 07:45 | Day surgery (SDC) | payer OTHER, MEDICARE ==
[2022-01-13 08:53] LABS: BASO % 0.5 % (0-2.0); EOS % 4.1 % (0-4.5); HEMATOCRIT 42.2 % (35.4-49); HEMOGLOBIN 13.8 GM/dL (11.7-16.9); LYMPH % 20.3 % (8-40); MCH 27.9 pg (25.7-33.7); MCHC 32.7 g/dl (32.0-35.9); MEAN CELL VOLUME 85.4 fl (80-96); MEAN PLT VOLUME 9.2 fl (7.5-11.1); MONO % 10.8 % (3.8-10.2); NEUT % 64.3 % (42.8-82.8); PLATELET COUNT 148 10^3/uL (134-434); RBC 4.94 M/mm3 (4.00-5.60); RDW 15.4 % (11.9-15.9); WHITE BLOOD COUNT 5.4 K/mm3 (4.0-10.0)
[2022-01-13] MEDS ORDERED: SODIUM CHLORIDE 250 ML IV ONE (09:00)
[2022-01-13 09:09] LABS: ALBUMIN 4.2 g/dl (3.4-5.0); CALCIUM 8.8 mg/dL (8.5-10.1); MAGNESIUM 2.5 mg/dL (1.8-2.4)
[2022-01-13 09:11] LABS: BILIRUBIN,DIRECT 0.3 mg/dL (0.0-0.2)
[2022-01-13 09:12] LABS: CREATININE 1.3 mg/dL (0.55-1.3)
[2022-01-13 09:13] LABS: BILIRUBIN,TOTAL 0.7 mg/dL (0.2-1); TOT PROT 7.3 g/dl (6.4-8.2)
[2022-01-13] MEDS ORDERED: PEMBROLIZUMAB 200 MG in SODIUM CHLORIDE 50 ML IV ONE (10:00)
[2022-01-13 18:04] VITALS: TEMP 97.5
[2022-01-13 18:11] VITALS: BP 106/67; PULSE 71
== END 2022-01-13 12:25 | disposition home or self-care (01) ==
LOC: JONCCHEMO 07:45
PROVIDERS: ATTEND Internal Medicine Hematology & Oncology
DX: Z51.11 Encounter for antineoplastic chemotherapy (principal); C18.9 Malignant neoplasm of colon, unspecified; C78.7 Secondary malignant neoplasm of liver and intrahepatic bile duct; C78.00 Secondary malignant neoplasm of unspecified lung
CPT/HCPCS: 36415; 80048; 80076; 82150; 82533; 83690; 83735; 84439; 84443; 85025; 96361; 96413; J9271

== ENCOUNTER 2022-02-03 08:54 | Day surgery (SDC) | payer OTHER, MEDICARE ==
[2022-02-03 09:43] LABS: BASO % 0.6 % (0-2.0); EOS % 2.7 % (0-4.5); HEMATOCRIT 40.9 % (35.4-49); HEMOGLOBIN 13.7 GM/dL (11.7-16.9); LYMPH % 18.7 % (8-40); MCHC 33.4 g/dl (32.0-35.9); MEAN CELL VOLUME 83.7 fl (80-96); MEAN PLT VOLUME 9.1 fl (7.5-11.1); MONO % 7.4 % (3.8-10.2); NEUT % 70.6 % (42.8-82.8); PLATELET COUNT 195 10^3/uL (134-434); RBC 4.89 M/mm3 (4.00-5.60); RDW 14.9 % (11.9-15.9); WHITE BLOOD COUNT 7.3 K/mm3 (4.0-10.0)
[2022-02-03] MEDS ORDERED: PEMBROLIZUMAB 200 MG in SODIUM CHLORIDE 50 ML IV ONE (10:00)
[2022-02-03] MEDS ORDERED: SODIUM CHLORIDE 250 ML IV ONE (10:00)
[2022-02-03 10:11] LABS: CALCIUM 9.1 mg/dL (8.5-10.1)
[2022-02-03 10:12] LABS: BLOOD UREA NITROGEN 16.6 mg/dL (7-18)
[2022-02-03 10:13] LABS: MAGNESIUM 2.3 mg/dL (1.8-2.4)
[2022-02-03 10:14] LABS: BILIRUBIN,DIRECT 0.2 mg/dL (0.0-0.2)
[2022-02-03 10:16] LABS: BILIRUBIN,TOTAL 0.4 mg/dL (0.2-1); CREATININE 1.3 mg/dL (0.55-1.3); TOT PROT 7.1 g/dl (6.4-8.2)
[2022-02-03 17:50] VITALS: BP 132/61; PULSE 770; TEMP 97.9
== END 2022-02-03 11:50 | disposition home or self-care (01) ==
LOC: JONCCHEMO 08:54
PROVIDERS: ATTEND Internal Medicine Hematology & Oncology
DX: Z51.11 Encounter for antineoplastic chemotherapy (principal); C18.9 Malignant neoplasm of colon, unspecified; C78.7 Secondary malignant neoplasm of liver and intrahepatic bile duct; C78.00 Secondary malignant neoplasm of unspecified lung
CPT/HCPCS: 36415; 80048; 80076; 82150; 82378; 82533; 82728; 83540; 83550; 83690; 83735; 84439; 84443; 85025; 96361; 96413; J9271

== ENCOUNTER 2022-02-15 04:00 | Day surgery (SDC) | payer OTHER, MEDICARE ==
[2022-02-10 15:13] VITALS: BMI 32.5
[2022-02-15] MEDS ORDERED: LIDOCAINE HCL 1%, 10 MG/ML (20ML VIAL) ONE (07:31)
[2022-02-15] MEDS ORDERED: MIDAZOLAM HCL 2 MG/2 ML SINGLE DOSE VIAL ONE (07:46)
[2022-02-15] MEDS ORDERED: SUCCINYLCHOLINE CHLORIDE 200 MG/10 ML SYRINGE ONE (07:47)
[2022-02-15] MEDS ORDERED: PROPOFOL 20 ML ONE ×4 (07:47→08:25)
[2022-02-15] MEDS ORDERED: LIDOCAINE HCL/PF 2% SDV 5ML VIAL ONE (07:47)
[2022-02-15] MEDS ORDERED: PHENYLEPHRINE HCL 10 MG/1 ML SINGLE DOSE VIAL ONE ×2 (07:49)
[2022-02-15] MEDS ORDERED: DEXMEDETOMIDINE HCL 200 MCG/2 ML IVPB ONE (07:56)
[2022-02-15] MEDS ORDERED: ceFAZolin SODIUM 1 GM VIAL ONE (08:03)
[2022-02-15] MEDS ORDERED: ceFAZolin SODIUM 1 GM VIAL IVPB ONE (08:10)
[2022-02-15] MEDS ORDERED: ONDANSETRON 4 MG/2 ML VIAL ONE (08:22)
[2022-02-15] MEDS ORDERED: LIDOCAINE HCL 1%, 10 MG/ML (20ML VIAL) NR ONE (08:26)
[2022-02-15] MEDS ORDERED: BACITRACIN 15 GM TUBE TOPICAL OINTMENT TP ONE (09:02)
[2022-02-15] MEDS ORDERED: oxyCODONE HCL 5 MG TABLET PO PRN (09:18)
[2022-02-15] MEDS ORDERED: ONDANSETRON 4 MG/2 ML VIAL IVPUSH PRN (09:18)
[2022-02-15] MEDS ORDERED: LACTATED RINGERS SOLUTION 1,000 ML IV SCH (09:30)
[2022-02-15 14:21] VITALS: BP 130/70; PULSE 70; TEMP 97
== END 2022-02-15 13:00 | disposition home or self-care (01) ==
LOC: JASU-SURG 04:00
PROVIDERS: ATTEND Surgery
PROC: 0JB70ZZ Excision of Back Subcutaneous Tissue and Fascia, Open Approach (ICD-10-PCS; principal; 2022-02-15 08:00)
DX: D17.1 Benign lipomatous neoplasm of skin and subcutaneous tissue of trunk (principal)
CPT/HCPCS: 82962; 88307-TC; 94760

== ENCOUNTER 2022-02-24 07:04 | Day surgery (SDC) | payer OTHER, MEDICARE ==
[2022-02-24 08:41] LABS: BASO % 0.5 % (0-2.0); EOS % 4.1 % (0-4.5); HEMATOCRIT 44.3 % (35.4-49); HEMOGLOBIN 14.6 GM/dL (11.7-16.9); MCH 27.7 pg (25.7-33.7); MEAN CELL VOLUME 83.7 fl (80-96); MEAN PLT VOLUME 9.8 fl (7.5-11.1); MONO % 7.8 % (3.8-10.2); NEUT % 65.6 % (42.8-82.8); PLATELET COUNT 158 10^3/uL (134-434); WHITE BLOOD COUNT 6.8 K/mm3 (4.0-10.0)
[2022-02-24 08:51] LABS: CALCIUM 8.8 mg/dL (8.5-10.1)
[2022-02-24 08:52] LABS: ALBUMIN 4.2 g/dl (3.4-5.0); BLOOD UREA NITROGEN 22.5 mg/dL (7-18); MAGNESIUM 2.4 mg/dL (1.8-2.4)
[2022-02-24 08:54] LABS: BILIRUBIN,DIRECT 0.2 mg/dL (0.0-0.2)
[2022-02-24 08:55] LABS: CREATININE 1.4 mg/dL (0.55-1.3)
[2022-02-24 08:56] LABS: BILIRUBIN,TOTAL 0.8 mg/dL (0.2-1); TOT PROT 7.3 g/dl (6.4-8.2)
[2022-02-24] MEDS ORDERED: SODIUM CHLORIDE 250 ML IV ONE (09:00)
[2022-02-24] MEDS ORDERED: PEMBROLIZUMAB 200 MG in SODIUM CHLORIDE 50 ML IV ONE (10:00)
[2022-02-24 15:07] VITALS: BP 123/66; PULSE 78; TEMP 98.3
== END 2022-02-24 11:00 | disposition home or self-care (01) ==
LOC: JONCCHEMO 07:04
PROVIDERS: ATTEND Internal Medicine Hematology & Oncology
PROC: 3E03305 Introduction of Other Antineoplastic into Peripheral Vein, Percutaneous Approach (ICD-10-PCS; principal; 2022-02-24)
PROC: 3E0337Z Introduction of Electrolytic and Water Balance Substance into Peripheral Vein, Percutaneous Approach (ICD-10-PCS; 2022-02-24)
DX: Z51.11 Encounter for antineoplastic chemotherapy (principal); C18.9 Malignant neoplasm of colon, unspecified
CPT/HCPCS: 36415; 80048; 80076; 82150; 82378; 82533; 83690; 83735; 84439; 84443; 85025; 96413; J9271

== ENCOUNTER 2022-03-17 06:17 | Day surgery (SDC) | payer BC ==
[2022-03-17 08:49] LABS: BASO % 0.6 % (0-2.0); EOS % 3.7 % (0-4.5); HEMATOCRIT 42.6 % (35.4-49); HEMOGLOBIN 14.3 GM/dL (11.7-16.9); LYMPH % 18.5 % (8-40); MCH 27.7 pg (25.7-33.7); MCHC 33.6 g/dl (32.0-35.9); MEAN CELL VOLUME 82.6 fl (80-96); MEAN PLT VOLUME 9.3 fl (7.5-11.1); MONO % 8.7 % (3.8-10.2); NEUT % 68.5 % (42.8-82.8); PLATELET COUNT 153 10^3/uL (134-434); RBC 5.16 M/mm3 (4.00-5.60); RDW 15.5 % (11.9-15.9)
[2022-03-17] MEDS ORDERED: SODIUM CHLORIDE 250 ML IV ONE (09:00)
[2022-03-17 09:17] LABS: MAGNESIUM 2.3 mg/dL (1.8-2.4)
[2022-03-17 09:19] LABS: BILIRUBIN,DIRECT 0.2 mg/dL (0.0-0.2)
[2022-03-17 09:21] LABS: BILIRUBIN,TOTAL 0.6 mg/dL (0.2-1)
[2022-03-17] MEDS ORDERED: PEMBROLIZUMAB 200 MG in SODIUM CHLORIDE 50 ML IV ONE (10:00)
[2022-03-17 10:03] LABS: CALCIUM 8.7 mg/dL (8.5-10.1)
[2022-03-17 10:06] LABS: CREATININE 1.2 mg/dL (0.55-1.3)
[2022-03-17 15:25] VITALS: RESP 20; TEMP 98.4
[2022-03-17 15:26] VITALS: BP 122/61; PULSE 73
== END 2022-03-17 11:45 | disposition home or self-care (01) ==
LOC: JONCCHEMO 06:17
PROVIDERS: ATTEND Internal Medicine Hematology & Oncology
DX: Z51.11 Encounter for antineoplastic chemotherapy (principal); C18.9 Malignant neoplasm of colon, unspecified
CPT/HCPCS: 36415; 80048; 80076; 82150; 82378; 82533; 82728; 83540; 83550; 83690; 83735; 84439; 84443; 85025; 96413; J9271

== ENCOUNTER 2022-04-07 07:44 | Day surgery (SDC) | payer OTHER ==
[2022-04-07 08:55] LABS: BASO % 0.8 % (0-2.0); EOS % 3.8 % (0-4.5); HEMATOCRIT 39.8 % (35.4-49); HEMOGLOBIN 13.8 GM/dL (11.7-16.9); LYMPH % 19.4 % (8-40); MCH 28.1 pg (25.7-33.7); MCHC 34.5 g/dl (32.0-35.9); MEAN CELL VOLUME 81.3 fl (80-96); MEAN PLT VOLUME 8.8 fl (7.5-11.1); MONO % 8.5 % (3.8-10.2); NEUT % 67.5 % (42.8-82.8); PLATELET COUNT 158 10^3/uL (134-434); RDW 15.8 % (11.9-15.9); WHITE BLOOD COUNT 6.3 K/mm3 (4.0-10.0)
[2022-04-07 09:00] LABS: ALBUMIN 3.9 g/dl (3.4-5.0); BLOOD UREA NITROGEN 20.3 mg/dL (7-18); CALCIUM 8.6 mg/dL (8.5-10.1)
[2022-04-07 09:02] LABS: BILIRUBIN,DIRECT 0.2 mg/dL (0.0-0.2); MAGNESIUM 2.2 mg/dL (1.8-2.4)
[2022-04-07 09:04] LABS: BILIRUBIN,TOTAL 0.5 mg/dL (0.2-1); TOT PROT 6.8 g/dl (6.4-8.2)
[2022-04-07 09:05] LABS: CREATININE 1.2 mg/dL (0.55-1.3)
[2022-04-07] MEDS ORDERED: SODIUM CHLORIDE 250 ML IV ONE (10:00)
[2022-04-07 10:14] VITALS: RESP 18; TEMP 97.8
[2022-04-07] MEDS ORDERED: PEMBROLIZUMAB 200 MG in SODIUM CHLORIDE 50 ML IV ONE (10:30)
[2022-04-07 12:17] VITALS: BP 121/64; PULSE 72
== END 2022-04-07 11:30 | disposition home or self-care (01) ==
LOC: JONCCHEMO 07:44
PROVIDERS: ATTEND Internal Medicine Hematology & Oncology
DX: Z51.11 Encounter for antineoplastic chemotherapy (principal); C18.9 Malignant neoplasm of colon, unspecified
CPT/HCPCS: 36415; 80048; 80076; 82150; 82378; 82533; 82728; 83540; 83550; 83690; 83735; 84439; 84443; 85025; 96361; 96413; J9271

== ENCOUNTER 2022-04-28 07:28 | Day surgery (SDC) | payer OTHER, MEDICARE ==
[2022-04-28 08:39] LABS: BASO % 0.8 % (0-2.0); EOS % 3.3 % (0-4.5); HEMOGLOBIN 14.4 GM/dL (11.7-16.9); LYMPH % 19.3 % (8-40); MCH 27.9 pg (25.7-33.7); MCHC 33.5 g/dl (32.0-35.9); MEAN CELL VOLUME 83.3 fl (80-96); MEAN PLT VOLUME 9.3 fl (7.5-11.1); MONO % 8.6 % (3.8-10.2); PLATELET COUNT 135 10^3/uL (134-434); RBC 5.16 M/mm3 (4.00-5.60); WHITE BLOOD COUNT 6.4 K/mm3 (4.0-10.0)
[2022-04-28 08:59] LABS: ALBUMIN 3.9 g/dl (3.4-5.0); BLOOD UREA NITROGEN 16.7 mg/dL (7-18); CALCIUM 8.8 mg/dL (8.5-10.1); MAGNESIUM 2.1 mg/dL (1.8-2.4)
[2022-04-28] MEDS ORDERED: SODIUM CHLORIDE 250 ML IV ONE (09:00)
[2022-04-28 09:02] LABS: CREATININE 1.2 mg/dL (0.55-1.3)
[2022-04-28 09:03] VITALS: RESP 18; TEMP 98.3
[2022-04-28 09:03] LABS: BILIRUBIN,TOTAL 0.6 mg/dL (0.2-1); TOT PROT 7.2 g/dl (6.4-8.2)
[2022-04-28 09:19] LABS: BILIRUBIN,DIRECT 0.2 mg/dL (0.0-0.2)
[2022-04-28] MEDS ORDERED: PEMBROLIZUMAB 200 MG in SODIUM CHLORIDE 50 ML IV ONE (10:00)
[2022-04-28 15:44] VITALS: BP 129/62; PULSE 71
== END 2022-04-28 11:50 | disposition home or self-care (01) ==
LOC: JONCCHEMO 07:28
PROVIDERS: ATTEND Internal Medicine Hematology & Oncology
DX: Z51.11 Encounter for antineoplastic chemotherapy (principal); C19 Malignant neoplasm of rectosigmoid junction; C78.7 Secondary malignant neoplasm of liver and intrahepatic bile duct
CPT/HCPCS: 36415; 80048; 80076; 82150; 82378; 82533; 82728; 83540; 83550; 83690; 83735; 84439; 84443; 85025; 96361; 96413; J9271

== ENCOUNTER 2022-05-02 05:36 | Inpatient (IN) | payer OTHER, MEDICARE ==
[~2022-05-02 05:36] MED LIST changes: -PEMBROLIZUMAB 200 MG in SODIUM CHLORIDE 50 ML IV ONE; -SODIUM CHLORIDE 250 ML IV ONE; +cefOXitin SODIUM 2 GM VIAL (RESTRICTED TO ID) IVPB ONE
[2022-05-02] MEDS ORDERED: ROCURONIUM BROMIDE 50 MG/5 ML SYRINGE ONE ×2 (07:08→09:23)
[2022-05-02] MEDS ORDERED: PROPOFOL 40 ML ONE (07:08)
[2022-05-02] MEDS ORDERED: LIDOCAINE HCL 2% 100 MG/5 ML DISP.SYRIN ONE (07:16)
[2022-05-02] MEDS ORDERED: BUPIVACAINE HCL/PF 0.25% (2.5MG/ML) 10 ML VIAL ONE (07:16)
[2022-05-02] MEDS ORDERED: MIDAZOLAM HCL 2 MG/2 ML SINGLE DOSE VIAL ONE (07:41)
[2022-05-02] MEDS ORDERED: ONDANSETRON 4 MG/2 ML VIAL IVPUSH PRN (07:46)
[2022-05-02] MEDS ORDERED: DEXAMETHASONE SOD PHOSPHATE 4 MG/1 ML VIAL ONE (07:49)
[2022-05-02] MEDS ORDERED: ACETAMINOPHEN INJECTION 100 ML IVPB ONE (07:49)
[2022-05-02] MEDS ORDERED: LACTATED RINGERS SOLUTION 1,000 ML IV SCH (08:00)
[2022-05-02] MEDS ORDERED: HEPARIN NA (PORCINE) 5,000 UNITS/ML 1ML VIAL ONE (08:23)
[2022-05-02] MEDS ORDERED: cefOXitin SODIUM 2 GM VIAL (RESTRICTED TO ID) IVPB ONE (08:27)
[2022-05-02] MEDS ORDERED: ONDANSETRON 4 MG/2 ML VIAL ONE (09:29)
[2022-05-02] MEDS ORDERED: HYDROmorphone HCl 2 MG/ML VIAL ONE (09:30)
[2022-05-02] MEDS ORDERED: NEOSTIGMINE METHYLSULFATE 0.5 MG/ML - 10 ML MDV ONE (10:06)
[2022-05-02] MEDS ORDERED: GLYCOPYRROLATE 0.2 MG/1 ML VIAL ONE ×3 (10:06→11:35)
[2022-05-02] MEDS ORDERED: INDOCYANINE GREEN 25 MG/10 ML VIAL IVPUSH ONE (10:41)
[2022-05-02] MEDS ORDERED: BUPIVACAINE HCL/PF 2.5 MG/ML - 30 ML VIAL IJ ONE ×2 (10:52→11:47)
[2022-05-02] MEDS ORDERED: BACITRACIN 15 GM TUBE TOPICAL OINTMENT TP ONE (11:48)
[2022-05-02] MEDS ORDERED: ACETAMINOPHEN 1000 MG/100 ML BAG IVPB SCH (12:15)
[2022-05-02] MEDS ORDERED: TORSEMIDE 20 MG TABLET (FP) PO SCH (12:15)
[2022-05-02] MEDS ORDERED: TORSEMIDE 10 MG TABLET PO SCH (12:15)
[2022-05-02] MEDS: ACETAMINOPHEN 1000 MG/100 ML BAG IVPB SCH ×3 (16:35→21:17)
[2022-05-02] MEDS: INSULIN SLIDING SCALE (NOVOLOG) 1 VIAL SQ SCH ×2 (16:41→21:24)
[2022-05-02] MEDS: LACTATED RINGERS SOLUTION 1,000 ML IV SCH (16:44)
[2022-05-02] MEDS ORDERED: CEFAZOLIN SODIUM 2 GM in DEXTROSE 5%-WATER - 100 ML IVPB SCH (18:00)
[2022-05-02] MEDS: CEFAZOLIN SODIUM 2 GM in DEXTROSE 5%-WATER 100 ML IVPB SCH (18:46)
[2022-05-02] MEDS: oxyCODONE HCL 5 MG TABLET PO PRN (22:22)
[2022-05-02] MEDS: ATORVASTATIN CA 10 MG TABLET (FP) PO SCH (22:23)
[2022-05-02] MEDS: SACUBITRIL/VALSARTAN 24 MG-26 MG TABLET PO SCH (22:23)
[2022-05-03] MEDS: PHENOL 177 ML SPRAY BOTTLE MM PRN ×2 (00:36→06:27)
[2022-05-03] MEDS: CEFAZOLIN SODIUM 2 GM in DEXTROSE 5%-WATER 100 ML IVPB SCH (02:15)
[2022-05-03] MEDS: ACETAMINOPHEN 1000 MG/100 ML BAG IVPB SCH ×4 (05:15→21:09)
[2022-05-03] MEDS: INSULIN SLIDING SCALE (NOVOLOG) 1 VIAL SQ SCH ×4 (06:26→21:10)
[2022-05-03] MEDS ORDERED: GLIMEPIRIDE 1 MG TABLET PO SCH (07:00)
[2022-05-03] MEDS ORDERED: CLOPIDOGREL BISULFATE 75 MG TABLET (FP) PO SCH (10:00)
[2022-05-03] MEDS ORDERED: ASPIRIN 81 MG CHEWABLE TABLETS PO SCH (10:00)
[2022-05-03] MEDS: metoPROLOL SUCCINATE 25 MG TAB.SR.24H (FP) PO SCH (10:51)
[2022-05-03] MEDS: ENOXAPARIN NA (PORCINE) 40 MG/0.4 ML DISP.SYRIN SQ SCH (10:51)
[2022-05-03] MEDS: PANTOPRAZOLE 20 MG TABLET PO SCH (10:51)
[2022-05-03] MEDS: SACUBITRIL/VALSARTAN 24 MG-26 MG TABLET PO SCH ×2 (10:51→21:52)
[2022-05-03] MEDS: oxyCODONE HCL 5 MG TABLET PO PRN ×2 (10:52→21:52)
[2022-05-03] MEDS: LACTATED RINGERS SOLUTION 1,000 ML IV SCH (11:32)
[2022-05-03] MEDS: TORSEMIDE 20 MG TABLET (FP) PO SCH (11:32)
[2022-05-03 12:28] LABS: BASO % 0.2 % (0-2.0); EOS % 0.5 % (0-4.5); HEMOGLOBIN 12.3 GM/dL (11.7-16.9); LYMPH % 12.1 % (8-40); MCH 27.3 pg (25.7-33.7); MCHC 32.5 g/dl (32.0-35.9); MEAN CELL VOLUME 83.8 fl (80-96); MEAN PLT VOLUME 9.1 fl (7.5-11.1); MONO % 8.7 % (3.8-10.2); NEUT % 78.5 % (42.8-82.8); PLATELET COUNT 166 10^3/uL (134-434); RBC 4.53 M/mm3 (4.00-5.60); RDW 16.2 % (11.9-15.9); WHITE BLOOD COUNT 10.9 K/mm3 (4.0-10.0)
[2022-05-03 12:48] LABS: CALCIUM 8.3 mg/dL (8.5-10.1)
[2022-05-03 12:49] LABS: BLOOD UREA NITROGEN 16.6 mg/dL (7-18)
[2022-05-03 12:52] LABS: CREATININE 1.2 mg/dL (0.55-1.3)
[2022-05-03] MEDS: PEMBROLIZUMAB 100 MG/4 ML IV SCH (15:38)
[2022-05-03] MEDS: ASPIRIN 81 MG CHEWABLE TABLETS PO SCH (15:41)
[2022-05-03] MEDS: ATORVASTATIN CA 10 MG TABLET (FP) PO SCH (21:09)
[2022-05-04] MEDS: ACETAMINOPHEN 1000 MG/100 ML BAG IVPB SCH ×2 (04:07→09:42)
[2022-05-04] MEDS: INSULIN SLIDING SCALE (NOVOLOG) 1 VIAL SQ SCH ×4 (06:10→21:14)
[2022-05-04 09:14] LABS: BASO % 0.4 % (0-2.0); EOS % 1.4 % (0-4.5); HEMATOCRIT 36.1 % (35.4-49); HEMOGLOBIN 12.2 GM/dL (11.7-16.9); LYMPH % 11.3 % (8-40); MCH 28.3 pg (25.7-33.7); MCHC 33.7 g/dl (32.0-35.9); MEAN CELL VOLUME 83.8 fl (80-96); MONO % 8.6 % (3.8-10.2); NEUT % 78.3 % (42.8-82.8); PLATELET COUNT 147 10^3/uL (134-434); RBC 4.31 M/mm3 (4.00-5.60); RDW 16.3 % (11.9-15.9); WHITE BLOOD COUNT 8.7 K/mm3 (4.0-10.0)
[2022-05-04 09:32] LABS: CALCIUM 8.1 mg/dL (8.5-10.1)
[2022-05-04 09:33] LABS: BLOOD UREA NITROGEN 15.3 mg/dL (7-18)
[2022-05-04 09:36] LABS: CREATININE 1.1 mg/dL (0.55-1.3)
[2022-05-04] MEDS: oxyCODONE HCL 5 MG TABLET PO PRN ×3 (09:40→23:57)
[2022-05-04] MEDS: SACUBITRIL/VALSARTAN 24 MG-26 MG TABLET PO SCH ×2 (09:41→21:17)
[2022-05-04] MEDS: ASPIRIN 81 MG CHEWABLE TABLETS PO SCH (09:41)
[2022-05-04] MEDS: PANTOPRAZOLE 20 MG TABLET PO SCH (09:41)
[2022-05-04] MEDS: ENOXAPARIN NA (PORCINE) 40 MG/0.4 ML DISP.SYRIN SQ SCH (09:41)
[2022-05-04] MEDS: metoPROLOL SUCCINATE 25 MG TAB.SR.24H (FP) PO SCH (09:41)
[2022-05-04] MEDS: GLIMEPIRIDE 1 MG TABLET PO SCH (09:41)
[2022-05-04] MEDS ORDERED: TORSEMIDE 10 MG TABLET PO SCH (10:00)
[2022-05-04 13:54] VITALS: BMI 31.4
[2022-05-04] MEDS: BACITRACIN 15 GM TUBE TOPICAL OINTMENT TP SCH (16:35)
[2022-05-04] MEDS: ACETAMINOPHEN 325 MG TABLET (FP) PO PRN (21:17)
[2022-05-04] MEDS: ATORVASTATIN CA 10 MG TABLET (FP) PO SCH (21:17)
[2022-05-05] MEDS: GLIMEPIRIDE 1 MG TABLET PO SCH (06:44)
[2022-05-05] MEDS: INSULIN SLIDING SCALE (NOVOLOG) 1 VIAL SQ SCH ×2 (06:44→11:30)
[2022-05-05] MEDS: oxyCODONE HCL 5 MG TABLET PO PRN ×2 (08:48→15:24)
[2022-05-05] MEDS: TORSEMIDE 20 MG TABLET (FP) PO SCH (09:28)
[2022-05-05] MEDS: metoPROLOL SUCCINATE 25 MG TAB.SR.24H (FP) PO SCH (09:28)
[2022-05-05] MEDS: SACUBITRIL/VALSARTAN 24 MG-26 MG TABLET PO SCH (09:28)
[2022-05-05] MEDS: ENOXAPARIN NA (PORCINE) 40 MG/0.4 ML DISP.SYRIN SQ SCH (09:28)
[2022-05-05] MEDS: ASPIRIN 81 MG CHEWABLE TABLETS PO SCH (09:28)
[2022-05-05] MEDS: BACITRACIN 15 GM TUBE TOPICAL OINTMENT TP SCH (09:28)
[2022-05-05] MEDS ORDERED: PANTOPRAZOLE 20 MG TABLET PO SCH (10:00)
[2022-05-05] MEDS: ACETAMINOPHEN 325 MG TABLET (FP) PO PRN (13:49)
[2022-05-05 15:18] VITALS: BP 122/65; PULSE 80; RESP 18; TEMP 98.2
== END 2022-05-05 16:29 | disposition home health service (06) | DRG 336 ==
LOC: J2C 05:36 → J6S 16:31
PROVIDERS: ADMIT Family Medicine; ATTEND Family Medicine
PROC: 0DN84ZZ Release Small Intestine, Percutaneous Endoscopic Approach (ICD-10-PCS; 2022-05-02)
PROC: 0DBB4ZZ Excision of Ileum, Percutaneous Endoscopic Approach (ICD-10-PCS; principal; 2022-05-02 08:00)
DX: Z43.2 Encounter for attention to ileostomy (principal); C18.9 Malignant neoplasm of colon, unspecified; C78.7 Secondary malignant neoplasm of liver and intrahepatic bile duct; R60.9 Edema, unspecified; E11.9 Type 2 diabetes mellitus without complications; D64.9 Anemia, unspecified; I25.10 Atherosclerotic heart disease of native coronary artery without angina pectoris; I25.5 Ischemic cardiomyopathy; I11.0 Hypertensive heart disease with heart failure; I50.9 Heart failure, unspecified
CPT/HCPCS: 36415; 71046-TC-FY; 80048; 82962; 85025; 85027; 85610; 85730; 86140; 86850; 86900; 86901; 88302-TC; 88307-TC; 94010; 94760; C9803-CS; J1644; U0003; U0005

== ENCOUNTER 2022-05-19 07:35 | Day surgery (SDC) | payer OTHER, MEDICARE ==
[2022-05-19 08:38] LABS: HEMATOCRIT 33.9 % (35.4-49); HEMOGLOBIN 11.1 GM/dL (11.7-16.9); MCH 27.1 pg (25.7-33.7); MCHC 32.8 g/dl (32.0-35.9); MEAN CELL VOLUME 82.6 fl (80-96); MEAN PLT VOLUME 7.5 fl (7.5-11.1); PLATELET COUNT 324 10^3/uL (134-434); RDW 16.5 % (11.9-15.9); WHITE BLOOD COUNT 7.6 K/mm3 (4.0-10.0)
[2022-05-19 09:11] LABS: BLOOD UREA NITROGEN 36.4 mg/dL (7-18)
[2022-05-19 09:13] LABS: ALBUMIN 2.7 g/dl (3.4-5.0); BILIRUBIN,DIRECT 0.3 mg/dL (0.0-0.2)
[2022-05-19 09:15] LABS: MAGNESIUM 2.9 mg/dL (1.8-2.4)
[2022-05-19 09:17] LABS: BILIRUBIN,TOTAL 0.6 mg/dL (0.2-1); CREATININE 1.5 mg/dL (0.55-1.3)
[2022-05-19] MEDS ORDERED: SODIUM CHLORIDE 250 ML IV ONE (10:00)
[2022-05-19] MEDS ORDERED: IRON SUCROSE INJECTION 200 MG in SODIUM CHLORIDE 90 ML IVPB ONE (10:00)
[2022-05-19 10:15] LABS: ANISOCYTOSIS 0; HELMET CELLS 0; HOWELL-JOLLY BODIES 0; MACROCYTOSIS 0; OVALOCYTE 0; ROULEAU 0; SICKELED CELLS 0; TARGET CELLS 0; TEAR DROP CELLS 0; TOXIC GRANULATION 0
[2022-05-19] MEDS ORDERED: PEMBROLIZUMAB 200 MG in SODIUM CHLORIDE 50 ML IV ONE (10:30)
[2022-05-19 13:27] VITALS: RESP 18; TEMP 97.9
[2022-05-19 13:39] VITALS: BP 102/51; PULSE 69
== END 2022-05-19 12:36 | disposition home or self-care (01) ==
LOC: JONCCHEMO 07:35
PROVIDERS: ATTEND Internal Medicine Hematology & Oncology
DX: Z51.11 Encounter for antineoplastic chemotherapy (principal); C19 Malignant neoplasm of rectosigmoid junction; C78.7 Secondary malignant neoplasm of liver and intrahepatic bile duct
CPT/HCPCS: 36415; 80048; 80076; 82150; 82378; 82533; 82728; 83540; 83550; 83690; 83735; 84439; 84443; 85025; 96361; 96365; 96413; J1756; J9271

== ENCOUNTER 2022-06-09 07:37 | Day surgery (SDC) | payer OTHER, MEDICARE ==
[2022-06-09 09:03] LABS: BASO % 0.8 % (0-2.0); HEMATOCRIT 38.7 % (35.4-49); HEMOGLOBIN 12.6 GM/dL (11.7-16.9); LYMPH % 22.5 % (8-40); MCH 27.1 pg (25.7-33.7); MCHC 32.5 g/dl (32.0-35.9); MEAN CELL VOLUME 83.3 fl (80-96); MEAN PLT VOLUME 9.1 fl (7.5-11.1); MONO % 11.2 % (3.8-10.2); NEUT % 57.5 % (42.8-82.8); PLATELET COUNT 158 10^3/uL (134-434); RBC 4.64 M/mm3 (4.00-5.60); WHITE BLOOD COUNT 4.9 K/mm3 (4.0-10.0)
[2022-06-09 09:18] LABS: ALBUMIN 3.6 g/dl (3.4-5.0); BLOOD UREA NITROGEN 19.7 mg/dL (7-18); CALCIUM 9.2 mg/dL (8.5-10.1)
[2022-06-09 09:19] LABS: MAGNESIUM 2.1 mg/dL (1.8-2.4)
[2022-06-09 09:21] LABS: BILIRUBIN,DIRECT 0.2 mg/dL (0.0-0.2)
[2022-06-09 09:23] LABS: BILIRUBIN,TOTAL 0.5 mg/dL (0.2-1); CREATININE 1.2 mg/dL (0.55-1.3); TOT PROT 6.8 g/dl (6.4-8.2)
[2022-06-09] MEDS ORDERED: IRON SUCROSE INJECTION 200 MG in SODIUM CHLORIDE 100 ML IVPB ONE (09:30)
[2022-06-09] MEDS ORDERED: PEMBROLIZUMAB 200 MG in SODIUM CHLORIDE 50 ML IV ONE (10:00)
[2022-06-09] MEDS ORDERED: SODIUM CHLORIDE 250 ML IV ONE (10:00)
[2022-06-09 15:21] VITALS: RESP 18; TEMP 97.6
[2022-06-09 15:28] VITALS: BP 123/62; PULSE 76
== END 2022-06-09 11:00 | disposition home or self-care (01) ==
LOC: JONCCHEMO 07:37
PROVIDERS: ATTEND Internal Medicine Hematology & Oncology
DX: Z51.11 Encounter for antineoplastic chemotherapy (principal); C19 Malignant neoplasm of rectosigmoid junction; C78.7 Secondary malignant neoplasm of liver and intrahepatic bile duct
CPT/HCPCS: 36415; 80048; 80076; 82150; 82378; 82533; 82728; 83540; 83550; 83690; 83735; 84439; 84443; 85025; 96367; 96413; J1756; J9271

== ENCOUNTER → 2022-06-30 | Day surgery (SDC) | payer OTHER, MEDICARE ==
[~2022-06-30] MED LIST changes: +IRON SUCROSE INJECTION 200 MG in SODIUM CHLORIDE 100 ML IVPB ONE; +PEMBROLIZUMAB 200 MG in SODIUM CHLORIDE 50 ML IV ONE; +SODIUM CHLORIDE 250 ML IV ONE; -cefOXitin SODIUM 2 GM VIAL (RESTRICTED TO ID) IVPB ONE
[2022-06-30 09:59] LABS: BASO % 0.6 % (0-2.0); EOS % 6.7 % (0-4.5); HEMATOCRIT 40.2 % (35.4-49); HEMOGLOBIN 13.4 GM/dL (11.7-16.9); LYMPH % 21.4 % (8-40); MCH 28.1 pg (25.7-33.7); MCHC 33.3 g/dl (32.0-35.9); MEAN CELL VOLUME 84.3 fl (80-96); MEAN PLT VOLUME 9.1 fl (7.5-11.1); MONO % 8.9 % (3.8-10.2); NEUT % 62.4 % (42.8-82.8); PLATELET COUNT 173 10^3/uL (134-434); RBC 4.77 M/mm3 (4.00-5.60)
[2022-06-30 10:13] LABS: ALBUMIN 3.8 g/dl (3.4-5.0); BLOOD UREA NITROGEN 23.5 mg/dL (7-18); CALCIUM 8.4 mg/dL (8.5-10.1)
[2022-06-30 10:14] LABS: MAGNESIUM 2.1 mg/dL (1.8-2.4)
[2022-06-30 10:17] LABS: BILIRUBIN,DIRECT 0.2 mg/dL (0.0-0.2)
[2022-06-30 10:18] LABS: TOT PROT 6.9 g/dl (6.4-8.2)
[2022-06-30 10:19] LABS: BILIRUBIN,TOTAL 0.5 mg/dL (0.2-1); CREATININE 1.1 mg/dL (0.55-1.3)
== END | disposition home or self-care (01) ==
LOC: JONCCHEMO 07:27
PROVIDERS: ATTEND Internal Medicine Hematology & Oncology
DX: Z53.8 Procedure and treatment not carried out for other reasons (principal)
CPT/HCPCS: 36415; 80048; 80076; 82150; 82378; 82533; 82728; 83540; 83550; 83690; 83735; 84439; 84443; 85025

== ENCOUNTER → 2022-07-21 | Day surgery (SDC) | payer OTHER, MEDICARE ==
[2022-07-21 08:34] LABS: HEMATOCRIT 44.5 % (35.4-49); HEMOGLOBIN 14.4 GM/dL (11.7-16.9); MCH 27.5 pg (25.7-33.7); MCHC 32.4 g/dl (32.0-35.9); MEAN CELL VOLUME 84.9 fl (80-96); MEAN PLT VOLUME 9.3 fl (7.5-11.1); PLATELET COUNT 189 10^3/uL (134-434); RBC 5.25 M/mm3 (4.00-5.60); RDW 16.7 % (11.9-15.9); WHITE BLOOD COUNT 9.3 K/mm3 (4.0-10.0)
[2022-07-21 09:00] LABS: BLOOD UREA NITROGEN 30.8 mg/dL (7-18)
[2022-07-21 09:01] LABS: ALBUMIN 3.8 g/dl (3.4-5.0)
[2022-07-21 09:02] LABS: MAGNESIUM 2.1 mg/dL (1.8-2.4)
[2022-07-21 09:03] LABS: BILIRUBIN,DIRECT 0.1 mg/dL (0.0-0.2)
[2022-07-21 09:05] LABS: BILIRUBIN,TOTAL 0.4 mg/dL (0.2-1); CREATININE 1.3 mg/dL (0.55-1.3); TOT PROT 6.8 g/dl (6.4-8.2)
[2022-07-21 09:44] LABS: ANISOCYTOSIS 0; MACROCYTOSIS 0
== END | disposition home or self-care (01) ==
LOC: JONCCHEMO 08:35
PROVIDERS: ATTEND Internal Medicine Hematology & Oncology
DX: Z53.8 Procedure and treatment not carried out for other reasons (principal)
CPT/HCPCS: 36415; 80048; 80076; 82150; 82378; 82533; 82728; 83540; 83550; 83690; 83735; 84439; 84443; 85025; 96365

== ENCOUNTER 2022-09-22 08:13 | Day surgery (SDC) | payer OTHER, MEDICARE ==
[~2022-09-22 08:13] MED LIST changes: -IRON SUCROSE INJECTION 200 MG in SODIUM CHLORIDE 100 ML IVPB ONE
[2022-09-22] MEDS ORDERED: SODIUM CHLORIDE 250 ML IV ONE (09:00)
[2022-09-22 09:24] LABS: BASO % 0.4 % (0-2.0); EOS % 1.2 % (0-4.5); HEMATOCRIT 40.7 % (35.4-49); HEMOGLOBIN 13.8 GM/dL (11.7-16.9); LYMPH % 26.4 % (8-40); MCH 29.4 pg (25.7-33.7); MEAN CELL VOLUME 86.4 fl (80-96); MEAN PLT VOLUME 8.6 fl (7.5-11.1); PLATELET COUNT 148 10^3/uL (134-434); RBC 4.71 M/mm3 (4.00-5.60); RDW 18.3 % (11.9-15.9); WHITE BLOOD COUNT 7.1 K/mm3 (4.0-10.0)
[2022-09-22 09:46] LABS: CALCIUM 9.5 mg/dL (8.5-10.1)
[2022-09-22 09:47] LABS: BLOOD UREA NITROGEN 39.6 mg/dL (7-18); MAGNESIUM 2.5 mg/dL (1.8-2.4)
[2022-09-22 09:48] LABS: ALBUMIN 4.1 g/dl (3.4-5.0)
[2022-09-22 09:49] LABS: BILIRUBIN,DIRECT 0.1 mg/dL (0.0-0.2); CREATININE 1.6 mg/dL (0.55-1.3)
[2022-09-22 09:51] LABS: BILIRUBIN,TOTAL 0.5 mg/dL (0.2-1); TOT PROT 6.8 g/dl (6.4-8.2)
[2022-09-22] MEDS ORDERED: PEMBROLIZUMAB 200 MG in SODIUM CHLORIDE 50 ML IV ONE (10:00)
[2022-09-22] MEDS ORDERED: INSULIN (NOVOLOG) ASPART 100 UNITS/ML 10ML VIAL SQ ONE ×2 (10:30→10:45)
[2022-09-22 11:48] LABS: ANISOCYTOSIS 0; MACROCYTOSIS 0
[2022-09-22 15:31] VITALS: RESP 20; TEMP 98.1
[2022-09-22 15:39] VITALS: BP 153/54; PULSE 70
== END 2022-09-22 10:50 | disposition home or self-care (01) ==
LOC: JONCCHEMO 08:13
PROVIDERS: ATTEND Internal Medicine Hematology & Oncology
DX: Z51.11 Encounter for antineoplastic chemotherapy (principal); C19 Malignant neoplasm of rectosigmoid junction; C78.7 Secondary malignant neoplasm of liver and intrahepatic bile duct
CPT/HCPCS: 36415; 80048; 80076; 82150; 82533; 83690; 83735; 84439; 84443; 85025; 96413; J9271

== ENCOUNTER 2022-10-13 07:44 | Day surgery (SDC) | payer OTHER, MEDICARE ==
[2022-10-13 09:20] LABS: HEMATOCRIT 40.2 % (35.4-49); HEMOGLOBIN 13.7 GM/dL (11.7-16.9); MCH 30.4 pg (25.7-33.7); MCHC 34.1 g/dl (32.0-35.9); MEAN CELL VOLUME 89.1 fl (80-96); MEAN PLT VOLUME 9.1 fl (7.5-11.1); PLATELET COUNT 155 10^3/uL (134-434); RBC 4.51 M/mm3 (4.00-5.60); RDW 17.8 % (11.9-15.9); WHITE BLOOD COUNT 7.4 K/mm3 (4.0-10.0)
[2022-10-13 09:47] LABS: BLOOD UREA NITROGEN 17.7 mg/dL (7-18); CALCIUM 8.9 mg/dL (8.5-10.1)
[2022-10-13 09:48] LABS: MAGNESIUM 2.4 mg/dL (1.8-2.4)
[2022-10-13 09:52] LABS: BILIRUBIN,TOTAL 0.6 mg/dL (0.2-1); CREATININE 1.3 mg/dL (0.55-1.3); TOT PROT 6.8 g/dl (6.4-8.2)
[2022-10-13 09:53] LABS: BILIRUBIN,DIRECT 0.2 mg/dL (0.0-0.2)
[2022-10-13] MEDS ORDERED: SODIUM CHLORIDE 250 ML IV ONE (10:00)
[2022-10-13 10:27] LABS: ANISOCYTOSIS 0; MACROCYTOSIS 0
[2022-10-13] MEDS ORDERED: PEMBROLIZUMAB 200 MG in SODIUM CHLORIDE 50 ML IV ONE (10:30)
[2022-10-13] MEDS ORDERED: PEMBROLIZUMAB 200 MG in SODIUM CHLORIDE 100 ML IV ONE (11:15)
[2022-10-13 13:02] VITALS: BP 125/54; PULSE 70; RESP 18; TEMP 98
== END 2022-10-13 12:00 | disposition home or self-care (01) ==
LOC: JONCCHEMO 07:44
PROVIDERS: ATTEND Internal Medicine Hematology & Oncology
DX: Z51.11 Encounter for antineoplastic chemotherapy (principal); C19 Malignant neoplasm of rectosigmoid junction; C78.7 Secondary malignant neoplasm of liver and intrahepatic bile duct
CPT/HCPCS: 36415; 80048; 80076; 82150; 82378; 82533; 82728; 83540; 83550; 83690; 83735; 84439; 84443; 85025; 96413; J9271

== ENCOUNTER 2022-11-03 07:33 | Day surgery (SDC) | payer OTHER, MEDICARE ==
[2022-11-03 08:14] LABS: HEMATOCRIT 42.8 % (35.4-49); HEMOGLOBIN 14.1 GM/dL (11.7-16.9); MCH 29.8 pg (25.7-33.7); MCHC 32.9 g/dl (32.0-35.9); MEAN CELL VOLUME 90.6 fl (80-96); MEAN PLT VOLUME 8.8 fl (7.5-11.1); PLATELET COUNT 154 10^3/uL (134-434); RBC 4.73 M/mm3 (4.00-5.60); RDW 15.8 % (11.9-15.9); WHITE BLOOD COUNT 8.5 K/mm3 (4.0-10.0)
[2022-11-03 08:45] LABS: BLOOD UREA NITROGEN 23.5 mg/dL (7-18); CALCIUM 8.8 mg/dL (8.5-10.1)
[2022-11-03 08:46] LABS: ALBUMIN 4.2 g/dl (3.4-5.0); MAGNESIUM 2.4 mg/dL (1.8-2.4)
[2022-11-03 08:48] LABS: CREATININE 1.3 mg/dL (0.55-1.3)
[2022-11-03 08:49] LABS: BILIRUBIN,DIRECT 0.2 mg/dL (0.0-0.2)
[2022-11-03 08:50] LABS: BILIRUBIN,TOTAL 0.5 mg/dL (0.2-1)
[2022-11-03] MEDS ORDERED: SODIUM CHLORIDE 250 ML IV ONE (09:00)
[2022-11-03 09:10] LABS: ANISOCYTOSIS 0; MACROCYTOSIS 0; TOXIC GRANULATION 2+
[2022-11-03] MEDS ORDERED: PEMBROLIZUMAB 200 MG in SODIUM CHLORIDE 50 ML IV ONE (10:00)
[2022-11-03 14:45] VITALS: BP 102/56; PULSE 72; RESP 20; TEMP 98.3
== END 2022-11-03 11:30 | disposition home or self-care (01) ==
LOC: JONCCHEMO 07:33
PROVIDERS: ATTEND Internal Medicine Hematology & Oncology
DX: Z51.11 Encounter for antineoplastic chemotherapy (principal); C19 Malignant neoplasm of rectosigmoid junction; C78.7 Secondary malignant neoplasm of liver and intrahepatic bile duct
CPT/HCPCS: 36415; 80048; 80076; 82150; 82533; 83690; 83735; 84439; 84443; 85025; 96367; 96413; J9271

== ENCOUNTER 2022-11-24 07:59 | Day surgery (SDC) | payer OTHER, MEDICARE ==
[2022-11-24 08:54] LABS: BASO % 0.7 % (0-2.0); EOS % 2.1 % (0-4.5); HEMATOCRIT 39.6 % (35.4-49); HEMOGLOBIN 13.6 GM/dL (11.7-16.9); LYMPH % 24.7 % (8-40); MCH 30.1 pg (25.7-33.7); MCHC 34.4 g/dl (32.0-35.9); MEAN CELL VOLUME 87.4 fl (80-96); MEAN PLT VOLUME 9.6 fl (7.5-11.1); MONO % 10.7 % (3.8-10.2); NEUT % 61.8 % (42.8-82.8); PLATELET COUNT 151 10^3/uL (134-434); RBC 4.53 M/mm3 (4.00-5.60); RDW 15.3 % (11.9-15.9); WHITE BLOOD COUNT 6.9 K/mm3 (4.0-10.0)
[2022-11-24] MEDS ORDERED: SODIUM CHLORIDE 250 ML IV ONE (09:00)
[2022-11-24 09:11] LABS: CALCIUM 8.9 mg/dL (8.5-10.1)
[2022-11-24 09:12] LABS: ALBUMIN 3.9 g/dl (3.4-5.0); BLOOD UREA NITROGEN 27.7 mg/dL (7-18)
[2022-11-24 09:14] LABS: BILIRUBIN,DIRECT 0.1 mg/dL (0.0-0.2); MAGNESIUM 2.3 mg/dL (1.8-2.4)
[2022-11-24 09:17] LABS: BILIRUBIN,TOTAL 0.6 mg/dL (0.2-1); CREATININE 1.4 mg/dL (0.55-1.3); TOT PROT 6.5 g/dl (6.4-8.2)
[2022-11-24 09:40] LABS: ANISOCYTOSIS 0; HELMET CELLS 0; HOWELL-JOLLY BODIES 0; MACROCYTOSIS 0; OVALOCYTE 0; ROULEAU 0; SICKELED CELLS 0; TARGET CELLS 0; TEAR DROP CELLS 0; TOXIC GRANULATION 0
[2022-11-24] MEDS ORDERED: PEMBROLIZUMAB 200 MG in SODIUM CHLORIDE 50 ML IV ONE (10:00)
[2022-11-24 14:58] VITALS: BP 147/68; PULSE 72; RESP 19; TEMP 97.8
== END 2022-11-24 11:30 | disposition home or self-care (01) ==
LOC: JONCCHEMO 07:59
PROVIDERS: ATTEND Internal Medicine Hematology & Oncology
DX: Z51.11 Encounter for antineoplastic chemotherapy (principal); C19 Malignant neoplasm of rectosigmoid junction; C78.7 Secondary malignant neoplasm of liver and intrahepatic bile duct
CPT/HCPCS: 36415; 80048; 80076; 82150; 82378; 82533; 82728; 83540; 83550; 83690; 83735; 84439; 84443; 85025; 96361; 96413; J9271

== ENCOUNTER 2022-12-15 07:01 | Day surgery (SDC) | payer OTHER, MEDICARE ==
[2022-12-15 07:49] LABS: HEMATOCRIT 42.6 % (35.4-49); HEMOGLOBIN 14.8 GM/dL (11.7-16.9); MCH 30.5 pg (25.7-33.7); MCHC 34.8 g/dl (32.0-35.9); MEAN CELL VOLUME 87.7 fl (80-96); MEAN PLT VOLUME 8.6 fl (7.5-11.1); PLATELET COUNT 148 10^3/uL (134-434); RBC 4.86 M/mm3 (4.00-5.60); RDW 15.1 % (11.9-15.9); WHITE BLOOD COUNT 7.6 K/mm3 (4.0-10.0)
[2022-12-15 08:11] LABS: BLOOD UREA NITROGEN 21.8 mg/dL (7-18); CALCIUM 8.8 mg/dL (8.5-10.1); MAGNESIUM 2.5 mg/dL (1.8-2.4)
[2022-12-15 08:13] LABS: BILIRUBIN,DIRECT 0.2 mg/dL (0.0-0.2); CREATININE 1.3 mg/dL (0.55-1.3)
[2022-12-15 08:15] LABS: BILIRUBIN,TOTAL 0.5 mg/dL (0.2-1)
[2022-12-15 08:47] LABS: ANISOCYTOSIS 0; HELMET CELLS 0; HOWELL-JOLLY BODIES 0; MACROCYTOSIS 0; OVALOCYTE 0; ROULEAU 0; SICKELED CELLS 0; TARGET CELLS 0; TEAR DROP CELLS 0; TOXIC GRANULATION 0
[2022-12-15] MEDS ORDERED: SODIUM CHLORIDE 250 ML IV ONE (10:00)
[2022-12-15] MEDS ORDERED: PEMBROLIZUMAB 200 MG in SODIUM CHLORIDE 50 ML IV ONE (10:30)
[2022-12-15 14:57] VITALS: BP 125/60; PULSE 72; RESP 18; TEMP 97.9
== END 2022-12-15 11:00 | disposition home or self-care (01) ==
LOC: JONCCHEMO 07:01
PROVIDERS: ATTEND Internal Medicine Hematology & Oncology
DX: Z51.11 Encounter for antineoplastic chemotherapy (principal); C19 Malignant neoplasm of rectosigmoid junction; C78.7 Secondary malignant neoplasm of liver and intrahepatic bile duct
CPT/HCPCS: 36415; 80048; 80076; 82150; 82533; 83690; 83735; 84439; 84443; 85025; 96413; J9271

== ENCOUNTER 2023-01-05 07:33 | Day surgery (SDC) | payer OTHER, MEDICARE ==
[2023-01-05 07:57] LABS: HEMATOCRIT 40.1 % (35.4-49); HEMOGLOBIN 13.9 GM/dL (11.7-16.9); MCH 30.3 pg (25.7-33.7); MCHC 34.7 g/dl (32.0-35.9); MEAN CELL VOLUME 87.3 fl (80-96); MEAN PLT VOLUME 9.1 fl (7.5-11.1); PLATELET COUNT 150 10^3/uL (134-434); RBC 4.59 M/mm3 (4.00-5.60); RDW 15.5 % (11.9-15.9)
[2023-01-05] MEDS ORDERED: SODIUM CHLORIDE 250 ML IV ONE (08:00)
[2023-01-05 08:19] LABS: POTASSIUM 4.3 mmol/L (3.5-5.1)
[2023-01-05 08:21] LABS: BLOOD UREA NITROGEN 19.8 mg/dL (7-18); CALCIUM 8.7 mg/dL (8.5-10.1)
[2023-01-05 08:22] LABS: ALBUMIN 4.1 g/dl (3.4-5.0)
[2023-01-05 08:23] LABS: MAGNESIUM 2.4 mg/dL (1.8-2.4)
[2023-01-05 08:24] LABS: BILIRUBIN,DIRECT 0.2 mg/dL (0.0-0.2)
[2023-01-05 08:26] LABS: TOT PROT 6.8 g/dl (6.4-8.2)
[2023-01-05 08:27] LABS: BILIRUBIN,TOTAL 0.6 mg/dL (0.2-1); CREATININE 1.3 mg/dL (0.55-1.3)
[2023-01-05] MEDS ORDERED: PEMBROLIZUMAB 200 MG in SODIUM CHLORIDE 50 ML IV ONE (09:00)
[2023-01-05 10:00] LABS: ANISOCYTOSIS 1+; MACROCYTOSIS 0
[2023-01-05 14:41] VITALS: BP 160/71; PULSE 74; RESP 18; TEMP 97.7
== END 2023-01-05 10:45 | disposition home or self-care (01) ==
LOC: JONCCHEMO 07:33 → J7W 07:36 → JONCCHEMO 10:45
PROVIDERS: ATTEND Internal Medicine Hematology & Oncology
DX: Z51.11 Encounter for antineoplastic chemotherapy (principal); C18.9 Malignant neoplasm of colon, unspecified; C78.7 Secondary malignant neoplasm of liver and intrahepatic bile duct
CPT/HCPCS: 36415; 80048; 80076; 82150; 82378; 82533; 82728; 83540; 83550; 83690; 83735; 84439; 84443; 85025; 96413; J9271

== ENCOUNTER 2023-01-26 07:27 | Day surgery (SDC) | payer OTHER, MEDICARE ==
[2023-01-26 07:45] LABS: BASO % 0.7 % (0-2.0); EOS % 3.4 % (0-4.5); HEMATOCRIT 43.7 % (35.4-49); HEMOGLOBIN 14.3 GM/dL (11.7-16.9); LYMPH % 28.4 % (8-40); MCH 29.4 pg (25.7-33.7); MCHC 32.6 g/dl (32.0-35.9); MEAN CELL VOLUME 90.1 fl (80-96); MEAN PLT VOLUME 8.8 fl (7.5-11.1); MONO % 11.4 % (3.8-10.2); NEUT % 56.1 % (42.8-82.8); PLATELET COUNT 160 10^3/uL (134-434); RBC 4.85 M/mm3 (4.00-5.60); RDW 16.4 % (11.9-15.9); WHITE BLOOD COUNT 6.9 K/mm3 (4.0-10.0)
[2023-01-26 08:04] LABS: POTASSIUM 4.9 mmol/L (3.5-5.1)
[2023-01-26 08:06] LABS: BLOOD UREA NITROGEN 21.3 mg/dL (7-18); CALCIUM 9.1 mg/dL (8.5-10.1)
[2023-01-26 08:07] LABS: ALBUMIN 4.2 g/dl (3.4-5.0)
[2023-01-26 08:08] LABS: MAGNESIUM 2.7 mg/dL (1.8-2.4)
[2023-01-26 08:09] LABS: BILIRUBIN,DIRECT 0.2 mg/dL (0.0-0.2)
[2023-01-26 08:11] LABS: BILIRUBIN,TOTAL 0.6 mg/dL (0.2-1); CREATININE 1.4 mg/dL (0.55-1.3); TOT PROT 6.9 g/dl (6.4-8.2)
[2023-01-26] MEDS ORDERED: SODIUM CHLORIDE 250 ML IV ONE (09:00)
[2023-01-26] MEDS ORDERED: PEMBROLIZUMAB 200 MG in SODIUM CHLORIDE 50 ML IV ONE (10:00)
[2023-01-26 14:17] VITALS: BP 105/57; PULSE 76; RESP 18; TEMP 97.9
== END 2023-01-26 11:00 | disposition home or self-care (01) ==
LOC: JONCCHEMO 07:27 → J7W 07:28 → JONCCHEMO 11:00
PROVIDERS: ATTEND Internal Medicine Hematology & Oncology
DX: Z51.11 Encounter for antineoplastic chemotherapy (principal); C18.9 Malignant neoplasm of colon, unspecified; C78.7 Secondary malignant neoplasm of liver and intrahepatic bile duct
CPT/HCPCS: 36415; 80048; 80076; 82150; 82533; 82728; 83540; 83550; 83690; 83735; 84439; 84443; 85025; 96365; J9271

== ENCOUNTER 2023-02-16 07:32 | Day surgery (SDC) | payer OTHER, MEDICARE ==
[2023-02-16 08:08] LABS: BASO % 1.1 % (0-2.0); EOS % 2.9 % (0-4.5); HEMATOCRIT 42.9 % (35.4-49); HEMOGLOBIN 14.2 GM/dL (11.7-16.9); LYMPH % 24.8 % (8-40); MCH 29.5 pg (25.7-33.7); MEAN CELL VOLUME 89.3 fl (80-96); MEAN PLT VOLUME 9.5 fl (7.5-11.1); MONO % 10.5 % (3.8-10.2); NEUT % 60.7 % (42.8-82.8); PLATELET COUNT 145 10^3/uL (134-434); WHITE BLOOD COUNT 5.7 K/mm3 (4.0-10.0)
[2023-02-16 08:44] LABS: POTASSIUM 4.4 mmol/L (3.5-5.1)
[2023-02-16 08:46] LABS: ALBUMIN 4.1 g/dl (3.4-5.0); BLOOD UREA NITROGEN 20.9 mg/dL (7-18); CALCIUM 9.2 mg/dL (8.5-10.1); MAGNESIUM 2.5 mg/dL (1.8-2.4)
[2023-02-16 08:49] LABS: BILIRUBIN,DIRECT 0.2 mg/dL (0.0-0.2); CREATININE 1.4 mg/dL (0.55-1.3)
[2023-02-16 08:51] LABS: BILIRUBIN,TOTAL 0.7 mg/dL (0.2-1); TOT PROT 6.8 g/dl (6.4-8.2)
[2023-02-16] MEDS ORDERED: SODIUM CHLORIDE 250 ML IV ONE (10:00)
[2023-02-16] MEDS ORDERED: PEMBROLIZUMAB 200 MG in SODIUM CHLORIDE 50 ML IV ONE (10:00)
[2023-02-16 13:59] VITALS: RESP 18; TEMP 98.3
[2023-02-16 14:02] VITALS: BP 130/58; PULSE 62
== END 2023-02-16 13:00 | disposition home or self-care (01) ==
LOC: JONCCHEMO 07:32 → J7W 07:33 → JONCCHEMO 13:00
PROVIDERS: ATTEND Internal Medicine Hematology & Oncology
DX: Z51.11 Encounter for antineoplastic chemotherapy (principal); C18.9 Malignant neoplasm of colon, unspecified; C78.7 Secondary malignant neoplasm of liver and intrahepatic bile duct
CPT/HCPCS: 36415; 80048; 80076; 82150; 82378; 82533; 82728; 83540; 83550; 83690; 83735; 84439; 84443; 85025; 96413; J9271

== ENCOUNTER 2023-03-30 07:20 | Day surgery (SDC) | payer OTHER, MEDICARE ==
[2023-03-30 07:49] LABS: EOS % 3.6 % (0-4.5); HEMATOCRIT 43.4 % (35.4-49); HEMOGLOBIN 14.6 GM/dL (11.7-16.9); LYMPH % 29.3 % (8-40); MCH 29.9 pg (25.7-33.7); MCHC 33.6 g/dl (32.0-35.9); MEAN CELL VOLUME 89.1 fl (80-96); MEAN PLT VOLUME 9.6 fl (7.5-11.1); MONO % 11.1 % (3.8-10.2); PLATELET COUNT 150 10^3/uL (134-434); RBC 4.87 M/mm3 (4.00-5.60); RDW 15.1 % (11.9-15.9); WHITE BLOOD COUNT 6.4 K/mm3 (4.0-10.0)
[2023-03-30 08:05] LABS: POTASSIUM 4.1 mmol/L (3.5-5.1)
[2023-03-30 08:08] LABS: ALBUMIN 4.1 g/dl (3.4-5.0); CALCIUM 8.5 mg/dL (8.5-10.1)
[2023-03-30 08:09] LABS: BLOOD UREA NITROGEN 29.7 mg/dL (7-18); MAGNESIUM 2.3 mg/dL (1.8-2.4)
[2023-03-30 08:11] LABS: BILIRUBIN,DIRECT 0.2 mg/dL (0.0-0.2); CREATININE 1.7 mg/dL (0.55-1.3); IRON SERUM 72 ug/dL (50-175)
[2023-03-30 08:12] LABS: TOTAL IRON BINDING CAPACITY 378 ug/dL (250-450)
[2023-03-30 08:13] LABS: BILIRUBIN,TOTAL 0.5 mg/dL (0.2-1)
[2023-03-30] MEDS ORDERED: SODIUM CHLORIDE 250 ML IV ONE (09:00)
[2023-03-30] MEDS ORDERED: PEMBROLIZUMAB 200 MG in SODIUM CHLORIDE 50 ML IV ONE (10:00)
[2023-03-30 10:47] VITALS: TEMP 98.1
[2023-03-30 15:47] VITALS: BP 120/53; PULSE 57; RESP 18
== END 2023-03-30 11:00 | disposition home or self-care (01) ==
LOC: JONCCHEMO 07:20 → J7W 07:21 → JONCCHEMO 11:00
PROVIDERS: ATTEND Internal Medicine Hematology & Oncology
DX: Z51.11 Encounter for antineoplastic chemotherapy (principal); C18.9 Malignant neoplasm of colon, unspecified; C78.7 Secondary malignant neoplasm of liver and intrahepatic bile duct
CPT/HCPCS: 36415; 80048; 80076; 82150; 82378; 82533; 82728; 83540; 83550; 83690; 83735; 84439; 84443; 85025; 96413; J9271

== ENCOUNTER 2023-04-20 07:28 | Day surgery (SDC) | payer OTHER, MEDICARE ==
[2023-04-20 08:11] LABS: BASO % 0.9 % (0-2.0); EOS % 3.6 % (0-4.5); HEMATOCRIT 42.7 % (35.4-49); HEMOGLOBIN 14.4 GM/dL (11.7-16.9); LYMPH % 24.8 % (8-40); MCHC 33.6 g/dl (32.0-35.9); MEAN PLT VOLUME 9.7 fl (7.5-11.1); MONO % 11.1 % (3.8-10.2); NEUT % 59.6 % (42.8-82.8); PLATELET COUNT 137 10^3/uL (134-434); RBC 4.79 M/mm3 (4.00-5.60); RDW 14.6 % (11.9-15.9); WHITE BLOOD COUNT 5.6 K/mm3 (4.0-10.0)
[2023-04-20 08:18] LABS: POTASSIUM 4.3 mmol/L (3.5-5.1)
[2023-04-20 08:20] LABS: BLOOD UREA NITROGEN 16.6 mg/dL (7-18); CALCIUM 8.5 mg/dL (8.5-10.1)
[2023-04-20 08:21] LABS: ALBUMIN 3.9 g/dl (3.4-5.0); MAGNESIUM 2.3 mg/dL (1.8-2.4)
[2023-04-20 08:23] LABS: BILIRUBIN,DIRECT 0.2 mg/dL (0.0-0.2)
[2023-04-20 08:25] LABS: BILIRUBIN,TOTAL 0.6 mg/dL (0.2-1); CREATININE 1.3 mg/dL (0.55-1.3); TOT PROT 6.6 g/dl (6.4-8.2)
[2023-04-20] MEDS ORDERED: SODIUM CHLORIDE 250 ML IV ONE (09:00)
[2023-04-20] MEDS ORDERED: PEMBROLIZUMAB 200 MG in SODIUM CHLORIDE 50 ML IV ONE (10:00)
[2023-04-20 15:03] VITALS: BP 122/64; PULSE 58; RESP 20; TEMP 97.6
== END 2023-04-20 11:30 | disposition home or self-care (01) ==
LOC: JONCCHEMO 07:28 → J7W 07:30 → JONCCHEMO 11:30
PROVIDERS: ATTEND Internal Medicine Hematology & Oncology
DX: Z51.11 Encounter for antineoplastic chemotherapy (principal); C18.9 Malignant neoplasm of colon, unspecified; C78.7 Secondary malignant neoplasm of liver and intrahepatic bile duct
CPT/HCPCS: 36415; 80048; 80076; 82150; 82378; 82533; 82728; 83540; 83550; 83690; 83735; 84439; 84443; 85025; 96413; J9271

== ENCOUNTER 2023-06-08 07:31 | Day surgery (SDC) | payer OTHER, MEDICARE ==
[2023-06-08 07:49] LABS: EOS % 3.1 % (0-4.5); HEMATOCRIT 44.5 % (35.4-49); HEMOGLOBIN 14.8 GM/dL (11.7-16.9); LYMPH % 27.4 % (8-40); MCH 29.2 pg (25.7-33.7); MCHC 33.3 g/dl (32.0-35.9); MEAN CELL VOLUME 87.6 fl (80-96); NEUT % 59.5 % (42.8-82.8); PLATELET COUNT 146 10^3/uL (134-434); RBC 5.08 M/mm3 (4.00-5.60); RDW 14.9 % (11.9-15.9); WHITE BLOOD COUNT 5.3 K/mm3 (4.0-10.0)
[2023-06-08 08:15] LABS: POTASSIUM 4.2 mmol/L (3.5-5.1)
[2023-06-08 08:17] LABS: BLOOD UREA NITROGEN 19.5 mg/dL (7-18); CALCIUM 8.1 mg/dL (8.5-10.1)
[2023-06-08 08:18] LABS: ALBUMIN 3.9 g/dl (3.4-5.0)
[2023-06-08 08:19] LABS: MAGNESIUM 2.1 mg/dL (1.8-2.4)
[2023-06-08 08:20] LABS: BILIRUBIN,DIRECT 0.2 mg/dL (0.0-0.2)
[2023-06-08 08:22] LABS: TOT PROT 6.6 g/dl (6.4-8.2)
[2023-06-08 08:23] LABS: BILIRUBIN,TOTAL 0.7 mg/dL (0.2-1); CREATININE 1.3 mg/dL (0.55-1.3)
[2023-06-08] MEDS ORDERED: SODIUM CHLORIDE 250 ML IV ONE (10:00)
[2023-06-08] MEDS ORDERED: PEMBROLIZUMAB 200 MG in SODIUM CHLORIDE 50 ML IV ONE (10:00)
[2023-06-08 16:02] VITALS: RESP 18; TEMP 98.3
[2023-06-08 16:25] VITALS: BP 125/57; PULSE 67
== END 2023-06-08 11:45 | disposition home or self-care (01) ==
LOC: JONCCHEMO 07:31 → J7W 07:32 → JONCCHEMO 11:45
PROVIDERS: ATTEND Internal Medicine Hematology & Oncology
DX: Z51.11 Encounter for antineoplastic chemotherapy (principal); C18.9 Malignant neoplasm of colon, unspecified; C78.7 Secondary malignant neoplasm of liver and intrahepatic bile duct
CPT/HCPCS: 36415; 80048; 80076; 82150; 82378; 82533; 82728; 83540; 83550; 83690; 83735; 84439; 84443; 85025; 96413; J9271

== ENCOUNTER 2023-06-29 07:25 | Day surgery (SDC) | payer OTHER, MEDICARE ==
[2023-06-29 08:20] LABS: POTASSIUM 4.3 mmol/L (3.5-5.1)
[2023-06-29 08:22] LABS: BASO % 0.7 % (0-2.0); CALCIUM 8.8 mg/dL (8.5-10.1); HEMATOCRIT 44.5 % (35.4-49); HEMOGLOBIN 15.4 GM/dL (11.7-16.9); LYMPH % 24.1 % (8-40); MCH 29.5 pg (25.7-33.7); MCHC 34.5 g/dl (32.0-35.9); MEAN CELL VOLUME 85.4 fl (80-96); MEAN PLT VOLUME 9.3 fl (7.5-11.1); MONO % 9.4 % (3.8-10.2); NEUT % 60.8 % (42.8-82.8); PLATELET COUNT 150 10^3/uL (134-434); RBC 5.21 M/mm3 (4.00-5.60); RDW 14.9 % (11.9-15.9); WHITE BLOOD COUNT 5.5 K/mm3 (4.0-10.0)
[2023-06-29 08:23] LABS: ALBUMIN 4.1 g/dl (3.4-5.0); BLOOD UREA NITROGEN 21.1 mg/dL (7-18)
[2023-06-29 08:25] LABS: BILIRUBIN,DIRECT 0.3 mg/dL (0.0-0.2); MAGNESIUM 2.5 mg/dL (1.8-2.4)
[2023-06-29 08:28] LABS: BILIRUBIN,TOTAL 0.8 mg/dL (0.2-1); CREATININE 1.4 mg/dL (0.55-1.3); TOT PROT 6.9 g/dl (6.4-8.2)
[2023-06-29] MEDS ORDERED: SODIUM CHLORIDE 250 ML IV ONE (09:00)
[2023-06-29 09:52] VITALS: RESP 18; TEMP 97.8
[2023-06-29] MEDS ORDERED: PEMBROLIZUMAB 200 MG in SODIUM CHLORIDE 50 ML IV ONE (10:00)
[2023-06-29 11:51] VITALS: BP 109/53; PULSE 60
== END 2023-06-29 10:40 | disposition home or self-care (01) ==
LOC: J7W 07:25 → JONCCHEMO 07:25
PROVIDERS: ATTEND Internal Medicine Hematology & Oncology
DX: Z51.11 Encounter for antineoplastic chemotherapy (principal); C18.9 Malignant neoplasm of colon, unspecified; C78.7 Secondary malignant neoplasm of liver and intrahepatic bile duct
CPT/HCPCS: 36415; 80048; 80076; 82150; 82378; 82533; 82728; 83540; 83550; 83690; 83735; 84436; 84439; 84443; 85025; 96413; J9271

== ENCOUNTER 2023-07-20 07:33 | Day surgery (SDC) | payer OTHER, MEDICARE ==
[2023-07-20 08:32] LABS: BASO % 0.8 % (0-2.0); EOS % 8.8 % (0-4.5); HEMATOCRIT 43.4 % (35.4-49); HEMOGLOBIN 14.3 GM/dL (11.7-16.9); MCH 28.8 pg (25.7-33.7); MEAN CELL VOLUME 87.1 fl (80-96); MONO % 6.9 % (3.8-10.2); NEUT % 63.5 % (42.8-82.8); PLATELET COUNT 156 10^3/uL (134-434); RBC 4.98 M/mm3 (4.00-5.60); RDW 14.7 % (11.9-15.9); WHITE BLOOD COUNT 6.1 K/mm3 (4.0-10.0)
[2023-07-20 08:49] LABS: POTASSIUM 4.1 mmol/L (3.5-5.1)
[2023-07-20 08:52] LABS: CALCIUM 8.5 mg/dL (8.5-10.1)
[2023-07-20 08:53] LABS: BLOOD UREA NITROGEN 22.5 mg/dL (7-18)
[2023-07-20 08:54] LABS: BILIRUBIN,DIRECT 0.3 mg/dL (0.0-0.2)
[2023-07-20 08:55] LABS: CREATININE 1.3 mg/dL (0.55-1.3)
[2023-07-20 08:56] LABS: MAGNESIUM 2.5 mg/dL (1.8-2.4)
[2023-07-20 08:57] LABS: BILIRUBIN,TOTAL 0.7 mg/dL (0.2-1); TOT PROT 6.6 g/dl (6.4-8.2)
[2023-07-20] MEDS ORDERED: SODIUM CHLORIDE 250 ML IV ONE (09:30)
[2023-07-20] MEDS ORDERED: PEMBROLIZUMAB 200 MG in SODIUM CHLORIDE 50 ML IV ONE (10:00)
[2023-07-20 14:46] VITALS: BP 126/90; PULSE 70; RESP 20; TEMP 97.6
== END 2023-07-20 10:55 | disposition home or self-care (01) ==
LOC: JONCCHEMO 07:33 → J7W 07:33 → JONCCHEMO 10:55
PROVIDERS: ATTEND Internal Medicine Hematology & Oncology
DX: Z51.11 Encounter for antineoplastic chemotherapy (principal); C18.0 Malignant neoplasm of cecum; C78.7 Secondary malignant neoplasm of liver and intrahepatic bile duct
CPT/HCPCS: 36415; 80048; 80076; 82150; 82378; 82533; 82728; 83540; 83550; 83690; 83735; 84439; 84443; 85025; 96413; J9271

== ENCOUNTER 2023-08-10 07:27 | Day surgery (SDC) | payer OTHER, MEDICARE ==
[2023-08-10 08:35] LABS: BASO % 0.9 % (0-2.0); EOS % 7.5 % (0-4.5); HEMATOCRIT 44.8 % (35.4-49); HEMOGLOBIN 15.2 GM/dL (11.7-16.9); LYMPH % 27.3 % (8-40); MCH 29.2 pg (25.7-33.7); MCHC 33.9 g/dl (32.0-35.9); MEAN CELL VOLUME 86.3 fl (80-96); MEAN PLT VOLUME 9.4 fl (7.5-11.1); MONO % 9.9 % (3.8-10.2); NEUT % 54.4 % (42.8-82.8); PLATELET COUNT 162 10^3/uL (134-434); RBC 5.19 M/mm3 (4.00-5.60); RDW 14.9 % (11.9-15.9); WHITE BLOOD COUNT 5.9 K/mm3 (4.0-10.0)
[2023-08-10] MEDS ORDERED: SODIUM CHLORIDE 250 ML IV ONE (09:00)
[2023-08-10 09:06] LABS: POTASSIUM 4.2 mmol/L (3.5-5.1)
[2023-08-10 09:17] LABS: TOT PROT 7.1 g/dl (6.4-8.2)
[2023-08-10 09:20] LABS: ALBUMIN 4.2 g/dl (3.4-5.0); BLOOD UREA NITROGEN 17.6 mg/dL (7-18); CALCIUM 9.3 mg/dL (8.5-10.1)
[2023-08-10 09:22] LABS: MAGNESIUM 2.4 mg/dL (1.8-2.4)
[2023-08-10 09:23] LABS: BILIRUBIN,DIRECT 0.2 mg/dL (0.0-0.2)
[2023-08-10 09:25] LABS: BILIRUBIN,TOTAL 1.1 mg/dL (0.2-1); CREATININE 1.4 mg/dL (0.55-1.3)
[2023-08-10] MEDS ORDERED: PEMBROLIZUMAB 200 MG in SODIUM CHLORIDE 50 ML IV ONE (09:30)
[2023-08-10 16:31] VITALS: RESP 20; TEMP 97.5
[2023-08-10 16:34] VITALS: BP 117/66; PULSE 61
== END 2023-08-10 12:15 | disposition home or self-care (01) ==
LOC: JONCCHEMO 07:27 → J7W 07:28 → JONCCHEMO 12:15
PROVIDERS: ATTEND Internal Medicine Hematology & Oncology
DX: Z51.11 Encounter for antineoplastic chemotherapy (principal); C18.0 Malignant neoplasm of cecum; C78.7 Secondary malignant neoplasm of liver and intrahepatic bile duct
CPT/HCPCS: 36415; 80048; 80076; 82150; 82378; 82533; 82728; 83540; 83550; 83690; 83735; 84436; 84439; 84443; 85025; 96413; J9271

== ENCOUNTER 2024-07-05 15:54 | Emergency (ER) | payer OTHER, MEDICARE ==
[2024-07-05 16:02] VITALS: BP 131/82; PULSE 76; RESP 16; TEMP 98.1; BMI 33.5
[2024-07-05] MEDS ORDERED: ACETAMINOPHEN 500 MG TABLET (FP) ONE (17:57)
[2024-07-05] MEDS: ACETAMINOPHEN 500 MG TABLET (FP) PO ONE (18:11)
[2024-07-05 19:12] LABS: PH,URINE 5.5 (5.0-8.0); URINE APPEARANCE CLEAR; URINE BILIRUBIN NEGATIVE (NEGATIVE); URINE COLOR YELLOW; URINE GLUCOSE (UA) TRACE (NEGATIVE); URINE KETONE TRACE (NEGATIVE); URINE LEUK ESTERASE NEGATIVE (NEGATIVE); URINE NITRITE NEGATIVE (NEGATIVE); URINE PROTEIN NEGATIVE (NEGATIVE); URINE UROBILINOGEN 0.2 mg/dL (0.2-1.0)
[2024-07-05] MEDS: LIDOCAINE 5% TOPICAL PATCH TP ONE (19:19)
[2024-07-05] MEDS ORDERED: LIDOCAINE 4% PATCH TP ONE (19:20)
[2024-07-05] MEDS ORDERED: LIDOCAINE PATCH REMOVAL MC SCH (22:00)
[2024-07-05] MEDS ORDERED: oxyCODONE HCL 5 MG TABLET ONE (23:39)
[2024-07-05] MEDS: oxyCODONE HCL 5 MG TABLET PO ONE (23:40)
== END 2024-07-06 00:31 | disposition home or self-care (01) ==
LOC: JERFT 15:54 → JER 15:54
DX: S22.069A Unspecified fracture of T7-T8 vertebra, initial encounter for closed fracture (principal); S22.079A Unspecified fracture of T9-T10 vertebra, initial encounter for closed fracture; S22.089A Unspecified fracture of T11-T12 vertebra, initial encounter for closed fracture; V00.811A Fall from moving wheelchair (powered), initial encounter
CPT/HCPCS: 71046-TC-FY; 71111-TC-FY; 81003; 87086; 87186; 99283-25